=== PATIENT | female | born 1940 | race Caucasian/White ===

== ENCOUNTER → 2023-06-15 10:59 | Outpatient (REF) | payer MEDICARE, OTHER, SELFPAY | LOC: HWRAD 10:59 | PROVIDERS: ATTENDING PHYSICIAN Nurse Practitioner Adult Health; FAMILY PHYSICIAN Family Medicine | DX: M51.34 Other intervertebral disc degeneration, thoracic region (principal); M54.14 Radiculopathy, thoracic region | CPT/HCPCS: 72072 ==

== ENCOUNTER → 2023-07-13 17:04 | Outpatient (REF) | payer MEDICARE, OTHER, SELFPAY | LOC: RAD 17:04 | PROVIDERS: ATTENDING PHYSICIAN Specialist; FAMILY PHYSICIAN Family Medicine | DX: I82.492 Acute embolism and thrombosis of other specified deep vein of left lower extremity (principal) | CPT/HCPCS: 93970 ==

== ENCOUNTER 2023-07-21 14:48 | Emergency (ER) | payer MEDICARE, OTHER, SELFPAY ==
[2023-07-21 14:53] VITALS: BP 162/96
[2023-07-21 15:22] LABS: % Basophils 0.6 % (0-2); % Eosinophils 1.1 % (0-6); % Immature Granulocytes 1.1 % (0-0.5); % Lymphocytes 9.4 % (20.5-51.1); % Monocytes 7.4 % (1.7-9.3); % Neutrophils 80.4 % (42.2-75.2); Absolute Basophils 0.1 10^3/uL (0-0.2); Absolute Eosinophils 0.1 10^3/uL (0-0.7); Absolute Immature Granulocytes 0.1 10^3/uL (0-0.05); Absolute Lymphocytes 1.2 10^3/uL (1.2-3.4); Absolute Monocytes 0.9 10^3/uL (0.1-0.6); Absolute Neutrophils 9.8 10^3/uL (1.4-6.5); Hematocrit 39.3 % (37.0-47.0); Hemoglobin 13.4 g/dL (12.0-16.0); Mean Corp Hgb Conc. 34.1 g/dL (33.0-37.0); Mean Corpuscular Hgb 31.8 pg (27.0-31.0); Mean Corpuscular Volume 93.1 fL (81.0-99.0); Mean Platelet Volume 9.6 fL (7.4-10.4); Nucleated Red Blood Cells % 0 %; Platelet Count 257 10^3/uL (130-400); Red Blood Cell Count 4.22 10^6/uL (4.20-5.40); Red Cell Dist. Width 13.6 % (11.5-14.5); White Blood Cell Count 12.2 10^3/uL (4.8-10.8)
[2023-07-21 15:32] LABS: ALT (SGPT) 18 U/L (0-35); AST (SGOT) 21 U/L (14-36); Albumin 4.4 g/dl (3.5-5.0); Alkaline Phosphatase 76 U/L (38-126); Blood Urea Nitrogen 15 mg/dl (7-17); Calcium 10.3 mg/dl (8.4-10.2); Carbon Dioxide 19 mmol/L (22-30); Chloride 108 mmol/L (98-107); Glucose 198 mg/dl (70-99); Lipase 398 U/L (23-300); Potassium 3.7 mmol/L (3.5-5.1); Sodium 136 mmol/L (135-145); Total Bilirubin 0.5 mg/dl (0.2-1.3); Total Protein 6.9 g/dl (6.3-8.2); eGFR > 60.00
--- NOTE | 2023-07-21 16:27 | ED.GENMED ---
History of Present Illness
General
Chief Complaint: Abdominal Symptoms
Source: patient and spouse
Exam Limitations: none
Time Seen by Provider: 07/21/23 16:15
Travel History
Have you had any contact with someone who has COVID-19?: No
Do you have any symptoms of coronavirus? Fever > 100 degrees, chills, cough, shortness of breath, sore throat, loss of taste or smell, muscle aches, or headache?: No
History of Present Illness
History of Present Illness:
82-year-old female multiple episodes of diarrhea yesterday. Very watery. Also developed some vague abdominal discomfort more left-sided but generally vague. No vomiting. No recent antibiotics or travel history. No one else is ill at home. She
also developed a cough and congestion the last few days. Called her primary physician who recommended ER evaluation
Past History
Past History
ED Past Medical History: CAD, GERD, Hypercholesterolemia, NIDDM, Other (Fibermyalgia, Sjogren's syndrome), Other (IBS, PE, DVT) and Other (Urinary retention, giant cell arteritis)
ED Past Surgical History: Cardiac (Coronary Stents), and Other (Thyroidectomy, Spinal fusion.)
Social History
Tobacco: Non-smoker
Alcohol: None
Drug: None
Personal:
Living: with family
Employment: Retired
Family History
Family History: Other (Noncontributory)
Review of Systems
Review of Systems
All Other Systems: Not applicable
Constitutional: Reports fatigue; Denies fever
Respiratory: Reports cough
Cardiac: Reports no symptoms
: Reports other (Feels like she is in mild retention or not able to urinate)
Phy Exam
Physical Exam
Physical Exam:
GENERAL: Alert and oriented in no apparent distress
EYE: Orbits normal.
NECK: Supple
CARDIAC: Regular rate and rhythm without any obvious murmurs.
LUNGS: Clear breath sounds,normal
ABDOMEN: Soft, but mildly distended. Bowel sounds present. Mild left upper quadrant tenderness. No rebound or guarding no mass or hernia
NEUROLOGICAL: Alert and oriented , grossly non-focal
SKIN: Warm and dry, no rash or lesion, no discoloration, skin intact.
MUSCULOSKELETAL: No edema,no deformity.Good color
PSYCH: Normal and appropriate interaction.
Course
Orders/Labs/Results
Orders:
Orders
07/21/23 14:50
EKG [Electrocardiogram (*1)] Urgent
Reason for Study: Shortness of Breath
07/21/23 14:51
EKG- Treatment ONCE
07/21/23 15:03
Complete Blood Count/With Diff Urgent
Comprehensive Metabolic Panel Urgent
Lipase Urgent
07/21/23 16:24
CXR2 [CR Chest - 2 Views ] Urgent
Comment:
Reason For Exam: Cough
07/21/23 16:26
0.9% Sodium Chloride 500 ml [Nss] 500 ml IV BOLUS
07/21/23 16:30
COVID-19 Antigen Urgent
Source: Nasal Swab
Influenza A+B Rapid Molecular Urgent
[facility] Source: Nasal Swab
Specimen Description:
07/21/23 16:49
CT Abd/pel (oral only)-[facility] Only Urgent
Comment:
Reason For Exam: General abdominal pain
Iohexol [Omnipaque] See Protocol PO NOW STA
07/21/23 16:53
Urinalysis Reflex To Culture Urgent
Date Specimen was Collected: 07/21/23
Time Specimen was Collected: 14:50
Urine Microscopic Reflex Cult Urgent
Urine Culture Urgent
[facility] Source: U
Specimen Description:
Date Specimen was Collected: 07/21/23
Time Specimen was Collected: 14:50
07/21/23 17:30
Gabapentin [Neurontin] 300 mg PO NOW STA
Oxycodone [Roxicodone] 10 mg PO NOW STA
Abnormal Lab Results
07/21/23 07/21/23
15:03 16:53
WBC 12.2 H 10^3/uL
(4.8-10.8)
MCH 31.8 H pg
(27.0-31.0)
Abs Immat Gran (auto) 0.1 H 10^3/uL
(0-0.05)
Absolute Neuts (auto) 9.8 H 10^3/uL
(1.4-6.5)
Absolute Monos (auto) 0.9 H 10^3/uL
(0.1-0.6)
Immature Gran % 1.1 H %
(0-0.5)
Neutrophils % 80.4 H %
(42.2-75.2)
Lymphocytes % 9.4 L %
(20.5-51.1)
Chloride 108 H mmol/L
(98-107)
Carbon Dioxide 19 L mmol/L
(22-30)
Glucose 198 H mg/dl
(70-99)
Calcium 10.3 H mg/dl
(8.4-10.2)
Lipase 398 H U/L
(23-300)
Urine Ketones Trace A
(Negative)
Leukocyte Esterase Rfl 1+ A
(Negative)
Urine Bacteria (Reflex) Few A
(Negative)
07/21/23 15:03
07/21/23 15:03
Vital Signs
Initial and Last Documented VS:
Initial Vital Signs
Temp Pulse Resp BP Pulse Ox
98.2 F 110 17 162/96 97
07/21/23 14:53 07/21/23 14:53 07/21/23 14:53 07/21/23 14:53 07/21/23 14:53
Last Documented Vital Signs
Temp Pulse Resp BP Pulse Ox
98.2 F 95 22 142/83 95
07/21/23 14:53 07/21/23 20:56 07/21/23 20:56 07/21/23 20:56 07/21/23 20:56
MDM/Problems Addressed
Differential Diagnosis Includes:
Large differential including colitis/gastroenteritis/viral syndrome/COVID/influenza. Workup in progress
*Radiology
Radiology exam reviewed: radiology read reviewed (No acute findings on CT or chest x-ray)
*Pulse Oximetry
Patient hypoxic: no
*EKG
Interpreted by ED Provider?: Yes
Interpretation: abnormal
Comparison EKG: changes noted
Heart Rate: 106
Rate: tachycardiac
Rhythm: sinus
[place]: left axis deviation
Interval: normal interval
QRS Pattern: right bundle branch block
Ischemia: non-specific ST changes
*Critical Care Note
Total Time (30-74mins, 75-104mins- exclusive of procedures): Not Applicable
Data Reviewed
Review of Other/Old Records Reveals: Labs, Records and Testing
Update Note
Update Note:
Patient anxious to go home and is feeling better. No serious etiology found. Minimal increase in neutrophils. Minimal white count. No bacterial etiology found. Stable for discharge to follow-up
ED Attending Note
-
Portions of this chart may have been created with voice recognition software.� Occasional wrong word or��sound alike� substitutions may have occurred due to the inherent limitations of voice recognition software.
Discharge Plan
Departure
Patient Disposition: Home (Routine Discharge)
Date of Disposition: 07/21/23
Time of Disposition: 20:57
Patient with high blood pressure during this ER visit?: Yes
Discharge Problem:
Abdominal pain/diarrhea, URI
Instructions: Diarrhea in adolescents and adults, Viral Upper Respiratory Infection, Adult (DC), Abdominal Pain, BLOOD PRESSURE
Prescriptions:
No Action
cevimeline [Evoxac] 30 MG capsule
30 mg PO DAILY@0700
gabapentin 300 MG capsule
300 mg PO HS
cyclosporine [Restasis] 10 DROPS dropperette
1 drp BOTH EYES BID
atorvastatin 20 MG tablet
40 mg PO HS
apixaban [Eliquis] 5 MG tablet
5 mg PO BID Qty: 60 0RF
metoprolol succinate 25 MG tablet extended release 24 hr
25 mg PO HS
cholecalciferol (vitamin D3) 2,000 UNITS tablet
2,000 units PO QPM
levothyroxine [Synthroid] 137 MCG tablet
137 mcg PO DAILY@0700
glipizide 5 MG tablet
5 mg PO BID
potassium chloride 10 MEQ capsule, extended release
10 meq PO TID
allopurinol 100 MG tablet
100 mg PO DAILY
esomeprazole magnesium [Nexium] 40 MG capsule,delayed release(DR/EC)
40 mg PO DAILY@0700
Domperidone
10 mg PO TID
isosorbide mononitrate 30 MG tablet extended release 24 hr
15 mg PO DAILY@0700
Patient Comments:
pt not sure of dosage
acetaminophen [Tylenol Ex Str Arthritis Pain] 500 MG tablet
1,000 mg PO Q6
L.acidoph, paracasei,B. lactis 1 EACH capsule
1 cap PO DAILY
ezetimibe [Zetia] 10 MG tablet
10 mg PO HS
opyhzonxnynq-gmg-curz-FA-vit K [Adults Multivitamin] 1 EACH tablet
1 ea PO DAILY
docusate sodium 100 MG capsule
100 mg PO BID 0RF
zolpidem [Ambien CR] 6.25 MG tablet,ext release multiphase
6.25 mg PO HS Qty: 3 0RF
hydrocodone-acetaminophen 1 EACH tablet
1 tab PO Q6 Qty: 14 0RF
hydromorphone [Dilaudid] 2 MG tablet
2 mg PO Q6H PRN (Reason: sev pain) Qty: 14 0RF
Referrals:
Jacob Rivas, [Family Provider] - Follow up in 2-3 days
Activity Restrictions/Additional Instructions:
Light diet for the next 2 to 3 days
Return sooner with increased pain fever vomiting or any other concerning symptoms
Also get rechecked if not resolved in 1 to 2 days
Interventions
Interventions:
*Risk Screen - Suicide Last Done: 07/21/23 14:53
*General Assessment Last Done: 07/21/23 17:37
*Neglect/Abuse Screening Last Done: 07/21/23 14:53
*ED COVID-19 Vaccine History Last Done: 07/21/23 14:53
*Nursing Disposition Last Done: 07/21/23 21:07
WU-Azwfnl-Ytucvqowpy Assessment Last Done: 07/21/23 17:36
Discharge Date and Time
Discharge Date/Time: 07/21/23 21:09
[2023-07-21 17:04] LABS: COVID-19 Antigen Negative (Negative)
[2023-07-21] MEDS: OMNIPAQUE 50 ML PO (17:05)
[2023-07-21 17:09] VITALS: BP 160/97
[2023-07-21 17:10] LABS: Urine Albumin Trace (Neg - Trace); Urine Bilirubin Negative (Negative); Urine Character Clear (Clear); Urine Color Yellow; Urine Glucose Negative (Negative); Urine Ketone Trace (Negative); Urine Leukocyte 1+ (Negative); Urine Nitrite Negative (Negative); Urine Occult Blood Negative (Negative); Urine Specific Gravity 1.025 (<1.030); Urine Urobilinogen Negative (Neg - 1+)
[2023-07-21 17:22] LABS: Urine Calcium Oxalate Crystals Present; Urine Mucus Few; Urine Red Blood Cell 0-2 /HPF (0-2); Urine Squamous Cell 0-2 /LPF (Few)
[2023-07-21 17:24] LABS: Urine Bacteria Few (Negative)
[2023-07-21] MEDS: NEURONTIN 300 MG PO (17:41)
[2023-07-21] MEDS: ROXICODONE 10 MG PO (17:41)
[2023-07-21 18:39] VITALS: BP 170/82
[2023-07-21 20:35] VITALS: BP 142/83
[2023-07-21 20:56] VITALS: BP 142/83
== END 2023-07-21 21:09 | disposition home or self-care (01) ==
LOC: EMR 14:48
PROVIDERS: Emergency Medicine; EMERGENCY PHYSICIAN Emergency Medicine; FAMILY PHYSICIAN Family Medicine
DX: J06.9 Acute upper respiratory infection, unspecified (principal); R19.7 Diarrhea, unspecified; R10.9 Unspecified abdominal pain; R03.0 Elevated blood-pressure reading, without diagnosis of hypertension; Z11.52 Encounter for screening for COVID-19
CPT/HCPCS: 99285; 71046; 74176; 80053; 81003; 81015; 83690; 85025; 87086; 87502; 87811; 93005

== ENCOUNTER 2023-07-26 13:57 | Observation (INO) | payer MEDICARE, OTHER, SELFPAY ==
[2023-07-26] VITALS (11 sets, daily range): BP systolic 114–167; BP diastolic 59–93; BMI 26.3; BMI 26.5
--- NOTE | 2023-07-26 10:30 | EDRN ---
the pt had c/o SOB and Sp02 was 94%, this RN spoke with provider Mino ROONEY and the pt was placed on 2L NC, the pt states that she feels more comfortable and that, 'It is easier to breathe now thank you, i feel much better with the oxygen',
Sp02 is now 98%, will continue to monitor the pt closely
--- NOTE | 2023-07-26 10:35 | ED.GENMED ---
History of Present Illness
General
Chief Complaint: Weakness
Source: patient
Time Seen by Provider: 07/26/23 10:25
History of Present Illness
History of Present Illness:
82-year-old female seen in this emergency department 5 days ago for profuse diarrhea and mild URI-like symptoms, had largely unremarkable workup outside of a mild leukocytosis, stating diarrhea has resolved but woke up this morning feeling generally
weak and unable to get up out of her bed, continued and worsening cough although notes diarrhea is fully resolved. Patient was unaware of a fever but was found to have a 101 fever here. Has not taken any medications prior to arrival. She states
she has not been taking anything at home for her symptoms and has not been on any antibiotics recently. Last night had significant rhinorrhea. at home is asymptomatic. Patient still endorses some abdominal discomfort although no further
GI symptoms.
Past History
Past History
ED Past Medical History: CAD, GERD, Hypercholesterolemia, NIDDM, Other (Fibermyalgia, Sjogren's syndrome), Other (IBS, PE, DVT) and Other (Urinary retention, giant cell arteritis)
ED Past Surgical History: Cardiac (Coronary Stents), and Other (Thyroidectomy, Spinal fusion.)
Social History
Tobacco: Non-smoker
Alcohol: None
Drug: None
Personal:
Living: with family
Employment: Retired
Family History
Family History: Other (Noncontributory)
Review of Systems
Review of Systems
All Other Systems: ROS reviewed and negative except as documented in HPI and ROS
Phy Exam
Physical Exam
Physical Exam:
GENERAL: Alert , in no apparent distress But does need assistance sitting up in bed
EYE: clear conjunctiva b/l
HEAD: NCAT
ENT: o/p clr, mmm.
CARDIAC: Borderline tachycardic rate and rhythm
LUNGS: Clear breath sounds bilaterally, no acute respiratory distress, no wheezes/rales/rhonchi, coughing throughout exam
ABDOMEN: Soft, without focal tenderness, no r/g, no cvat, negative Duval sign, no tenderness at McBurney's point
NEUROLOGICAL: Alert and oriented
SKIN: Warm and dry, skin intact.
MUSCULOSKELETAL: No edema, well perfused.
PSYCH: Normal and appropriate interaction.
Scores
Heart Failure Risk
Heart Failure Risk Score: Not Applicable
Heart Score for Chest Pain Patients
STEMI patient?: Not applicable
Withdrawal Assessment of Alcohol
Withdrawal Assessment Completed?: Not applicable
Course
Orders/Labs/Results
Orders:
Orders
07/26/23 10:23
Electrocardiogram (*1) Urgent
Reason for Study: Vertigo / Dizzy
CR Chest - 2 Views Urgent
Comment:
Reason For Exam: cough/ shortness of breath
07/26/23 10:24
EKG- Treatment ONCE
07/26/23 10:26
Basic Metabolic Panel Urgent
COVID-19 Antigen Urgent
Source: Nasal Swab
Complete Blood Count/With Diff Urgent
Lactic Acid Urgent
Lipase Urgent
Comment: ADD ON
Urinalysis Reflex To Culture Urgent
Date Specimen was Collected: 07/26/23
Time Specimen was Collected: 10:24
Urine Microscopic Reflex Cult Urgent
Blood Culture Urgent
[facility] Source: Blood/Venous
Specimen Description:
Date Specimen was Collected: 07/26/23
Time Specimen was Collected: 10:24
Influenza A+B Rapid Molecular Urgent
[facility] Source: Nasal Swab
Specimen Description:
Date Specimen was Collected: 07/26/23
Time Specimen was Collected: 10:24
07/26/23 10:35
0.9% Sodium Chloride 500 ml [Nss] 500 ml IV BOLUS
Acetaminophen [Tylenol] 650 mg PO NOW STA
07/26/23 13:00
Add On- LAB Urgent
Tests Added?: troponin
07/26/23 13:01
Add On- LAB Urgent
Tests Added?: magnesium
Basic Metabolic Panel Urgent
07/26/23 13:02
Add On- LAB Urgent
Tests Added?: lipase
Abnormal Lab Results
07/26/23
10:26
RBC 4.07 L 10^6/uL
(4.20-5.40)
Hct 36.9 L %
(37.0-47.0)
MCH 31.7 H pg
(27.0-31.0)
Abs Immat Gran (auto) 0.1 H 10^3/uL
(0-0.05)
Absolute Neuts (auto) 8.4 H 10^3/uL
(1.4-6.5)
Absolute Lymphs (auto) 0.6 L 10^3/uL
(1.2-3.4)
Absolute Monos (auto) 1.0 H 10^3/uL
(0.1-0.6)
Immature Gran % 0.8 H %
(0-0.5)
Neutrophils % 82.3 H %
(42.2-75.2)
Lymphocytes % 6.2 L %
(20.5-51.1)
Monocytes % 10.1 H %
(1.7-9.3)
Sodium 133 L mmol/L
(135-145)
Carbon Dioxide 20 L mmol/L
(22-30)
Creatinine 0.5 L mg/dL
(0.6-1.0)
Glucose 143 H mg/dl
(70-99)
Leukocyte Esterase Rfl Trace A
(Negative)
Urine Bacteria (Reflex) Few A
(Negative)
07/26/23 10:26
Vital Signs
Initial and Last Documented VS:
Initial Vital Signs
Temp Pulse Resp BP Pulse Ox
101.5 F H 95 25 167/86 96
07/26/23 10:25 07/26/23 10:25 07/26/23 10:25 07/26/23 10:25 07/26/23 10:25
Last Documented Vital Signs
Temp Pulse Resp BP Pulse Ox
101.5 F H 88 16 158/69 96
07/26/23 10:25 07/26/23 11:15 07/26/23 11:15 07/26/23 11:00 07/26/23 11:15
MDM/Problems Addressed
Differential Diagnosis Includes:
Progressed intra-abdominal pathology not seen on previous CT scan, COVID, flu, pneumonia
MDM/Problems Addressed:
82-year-old female presenting back to the emergency department after being seen 5 days ago, at that time was seen for profuse diarrhea but those symptoms have fully resolved. Patient did have a leukocytosis then however no clear etiology for this
as she had a otherwise unremarkable workup. Today's symptoms are mostly pronounced weakness and inability to get out of bed. Found to have a 101.5 fever here. Will check labs, cultures, lactic acid, urine, chest x-ray. Patient still noting some
abdominal discomfort but will hold off on CT imaging given unremarkable CT 5 days ago. Anticipate admission. Tylenol ordered for fever as well as fluids for weakness.
*Radiology
Radiology exam reviewed: preliminary read by ED provider ( unremarkable chest x-ray)
*Pulse Oximetry
Patient hypoxic: no
*EKG
Interpreted by ED Provider?: Yes
Comparison EKG: no changes
Heart Rate: 93
Rate: normal
Rhythm: sinus
QRS Pattern: left bundle branch block and right bundle branch block
*Physician General Internal Medicine Interpretation
Rate: normal
Rhythm: sinus
*Critical Care Note
Total Time (30-74mins, 75-104mins- exclusive of procedures): Not Applicable
Patient Management
Discussion with other providers: Hospitalist
Escalation/DeEscalation of care consider admission/obs:
Patient's lab findings are largely unremarkable. Her leukocytosis has resolved however she still has increased neutrophils. Urine and chest x-ray are negative for any acute findings. COVID and flu testing was negative. Certainly considering
viral etiology to be cause. Given patient's cough PE was also given her history of this however she is properly anticoagulated on Eliquis and takes this regularly. Plan will be to admit as well as service for continued evaluation and treatment as
patient is too weak to get up and ambulate on her own. Hospitalist accepts for continued evaluation and treatment.
ED Attending Note
-
Portions of this chart may have been created with voice recognition software.� Occasional wrong word or��sound alike� substitutions may have occurred due to the inherent limitations of voice recognition software.
Discharge Plan
Departure
Patient Disposition: Admit
Date of Disposition: 07/26/23
Time of Disposition: 12:27
Presentation/result/management discussed w/ accepting MD/DO: Hospitalist
Discharge Problem:
Fever, Generalized weakness, Ambulatory dysfunction
Prescriptions:
No Action
cevimeline [Evoxac] 30 MG capsule
30 mg PO DAILY@0700
gabapentin 300 MG capsule
300 mg PO HS
cyclosporine [Restasis] 10 DROPS dropperette
1 drp BOTH EYES BID
atorvastatin 20 MG tablet
40 mg PO HS
apixaban [Eliquis] 5 MG tablet
5 mg PO BID Qty: 60 0RF
metoprolol succinate 25 MG tablet extended release 24 hr
25 mg PO HS
cholecalciferol (vitamin D3) 2,000 UNITS tablet
2,000 units PO QPM
levothyroxine [Synthroid] 137 MCG tablet
137 mcg PO DAILY@0700
glipizide 5 MG tablet
5 mg PO BID
potassium chloride 10 MEQ capsule, extended release
10 meq PO TID
allopurinol 100 MG tablet
100 mg PO DAILY
esomeprazole magnesium [Nexium] 40 MG capsule,delayed release(DR/EC)
40 mg PO DAILY@0700
Domperidone
10 mg PO TID
isosorbide mononitrate 30 MG tablet extended release 24 hr
15 mg PO DAILY@0700
Patient Comments:
pt not sure of dosage
acetaminophen [Tylenol Ex Str Arthritis Pain] 500 MG tablet
1,000 mg PO Q6
L.acidoph, paracasei,B. lactis 1 EACH capsule
1 cap PO DAILY
ezetimibe [Zetia] 10 MG tablet
10 mg PO HS
dosqzupzfmiy-zor-rbji-FA-vit K [Adults Multivitamin] 1 EACH tablet
1 ea PO DAILY
docusate sodium 100 MG capsule
100 mg PO BID 0RF
zolpidem [Ambien CR] 6.25 MG tablet,ext release multiphase
6.25 mg PO HS Qty: 3 0RF
hydrocodone-acetaminophen 1 EACH tablet
1 tab PO Q6 Qty: 14 0RF
hydromorphone [Dilaudid] 2 MG tablet
2 mg PO Q6H PRN (Reason: sev pain) Qty: 14 0RF
Referrals:
Jacob Rivas DO [Family Provider] -
Interventions
Interventions:
*Risk Screen - Suicide Last Done: 07/26/23 10:25
*General Assessment Last Done: 07/26/23 10:25
*Neglect/Abuse Screening Last Done: 07/26/23 10:25
ED- Fall Risk Assessment Last Done: 07/26/23 10:25
*ED COVID-19 Vaccine History Last Done: 07/26/23 10:25
ED- Cardiac Assessment Last Done: 07/26/23 10:25
ED- Neurological Assessment Last Done: 07/26/23 10:25
ED- Pulmonary Assessment Last Done: 07/26/23 10:25
Discharge Date and Time
Print Language: ARABIC
[2023-07-26] MEDS: NSS 500 IV (10:38)
[2023-07-26] MEDS: TYLENOL 650 MG PO (10:40)
[2023-07-26 10:50] LABS: % Basophils 0.4 % (0-2); % Eosinophils 0.2 % (0-6); % Immature Granulocytes 0.8 % (0-0.5); % Lymphocytes 6.2 % (20.5-51.1); % Monocytes 10.1 % (1.7-9.3); % Neutrophils 82.3 % (42.2-75.2); Absolute Immature Granulocytes 0.1 10^3/uL (0-0.05); Absolute Lymphocytes 0.6 10^3/uL (1.2-3.4); Absolute Neutrophils 8.4 10^3/uL (1.4-6.5); Hematocrit 36.9 % (37.0-47.0); Hemoglobin 12.9 g/dL (12.0-16.0); Mean Corpuscular Hgb 31.7 pg (27.0-31.0); Mean Corpuscular Volume 90.7 fL (81.0-99.0); Nucleated Red Blood Cells % 0 %; Red Blood Cell Count 4.07 10^6/uL (4.20-5.40); Red Cell Dist. Width 13.8 % (11.5-14.5); White Blood Cell Count 10.2 10^3/uL (4.8-10.8)
[2023-07-26 11:09] LABS: Lactic Acid 1.4 mmol/L (0.7-2.0)
[2023-07-26 11:10] LABS: COVID-19 Antigen Negative (Negative)
[2023-07-26 11:12] LABS: Glucose 143 mg/dl (70-99)
[2023-07-26 11:13] LABS: Blood Urea Nitrogen 11 mg/dl (7-17); Calcium 9.3 mg/dl (8.4-10.2); Carbon Dioxide 20 mmol/L (22-30); Chloride 105 mmol/L (98-107); Estimated Creatinine Clearance 56 ml/min; Sodium 133 mmol/L (135-145); eGFR > 60.00
[2023-07-26 11:19] LABS: Urine Albumin Trace (Neg - Trace); Urine Bilirubin Negative (Negative); Urine Character Clear (Clear); Urine Color Yellow; Urine Glucose Negative (Negative); Urine Ketone Negative (Negative); Urine Leukocyte Trace (Negative); Urine Nitrite Negative (Negative); Urine Occult Blood Negative (Negative); Urine Urobilinogen Negative (Neg - 1+)
[2023-07-26 11:42] LABS: Urine Red Blood Cell None Seen /HPF (0-2)
[2023-07-26 11:43] LABS: Urine Bacteria Few (Negative)
[2023-07-26 11:49] LABS: Mean Platelet Volume 9.8 fL (7.4-10.4); Platelet Count 166 10^3/uL (130-400)
--- NOTE | 2023-07-26 13:28 | HPS.HSE ---
Family Physician
-
Family Physician: Jacob Rivas
Chief Complaint
-
Weakness
History of Present Illness
82-year-old woman who 5 days ago had profuse diarrhea and mild URI-like symptoms. She came in for eval and had largely unremarkable workup outside of a mild leukocytosis. Then the diarrhea resolved and she went home. Today she woke up feeling
generally weak and unable to get up out of her bed/ She has a worsening cough, and the diarrhea is fully resolved. Patient was unaware of a fever but was found to have a 101.5 fever in the ED. She states she has not been taking anything at home
for her symptoms and has not been on any antibiotics recently. Last night she had significant rhinorrhea. Her at home is asymptomatic. Patient still has some generalized non-focal abdominal discomfort although no further GI symptoms. At
the time of my interview she was awake and alert, answering all questions appropriately. She was comfortable.
Medical History
Past Medical History
Past Medical History: Reports Other
Additional Past Medical History:
CAD,
GERD,
Hypercholesterolemia,
NIDDM,
Fibromyalgia,
Sjogren's syndrome
IBS,
PE,
DVT
Urinary retention,
giant cell arteritis
Cardiac (Coronary Stents),
Thyroidectomy,
Spinal fusion
Past Surgical History: Reports Other
Additional Past Surgical History:
See above
Social History
Tobacco: Non-smoker
Alcohol: None
Drug: None
Personal:
Living: With Family
Employment: Retired
Family History
Family History: Not pertinent
Allergies / Home Medications
Allergies reflects when Allergies were last updated in [employer].
Home Medications with original date entered in [facility]
Allergy/Medication List:
Allergies
Allergy/AdvReac Type Severity Reaction Status Date / Time
Iodinated Contrast Media Allergy Shortness Verified 11/17/22 10:04
[Iodinated Contrast Media - of Breath,
Oral and] rash
levofloxacin [From Levaquin] Allergy Shortness Verified 11/17/22 10:04
of Breath,
Rash
nabumetone [From Relafen] Allergy STOMACH Verified 11/17/22 10:04
PROBLEMS,
SOB
naproxen [Naproxen] Allergy STOMACH Verified 11/17/22 10:04
PROBLEMS,
SOB
nifedipine [From Procardia] Allergy VOMITED X Verified 11/17/22 10:04
24 HRS, SOB
Penicillins Allergy Rash/COULD Verified 11/17/22 10:04
NOT BREATHE
sulfamethoxazole Allergy STOMACH Verified 11/17/22 10:04
[Sulfamethoxazole] PROBLEMS,
SOB
vancomycin [Vancomycin] Allergy TROUBLE Verified 11/17/22 10:04
BREATHING
Home Medications
cevimeline 30 mg capsule (Evoxac) 30 mg PO DAILY@0700 dry mouth 08/10/12
cyclosporine 0.05 % eye drops in a dropperette (Restasis) 1 drp BOTH EYES BID Eye condition 08/10/12
gabapentin 300 mg capsule 300 mg PO HS Neurological Condition 08/10/12
apixaban 5 mg tablet (Eliquis) 5 mg PO BID #60 tabs 06/27/16
atorvastatin 20 mg tablet 40 mg PO HS High cholesterol 06/27/16
cholecalciferol (vitamin D3) 50 mcg (2,000 unit) tablet 2,000 units PO QPM Supplement 01/15/17
metoprolol succinate 25 mg tablet,extended release 24 hr 25 mg PO HS Heart disease/condition 01/15/17
glipizide 5 mg tablet 5 mg PO BID Diabetes 02/02/17
levothyroxine 137 mcg tablet (Synthroid) 137 mcg PO DAILY@0700 Thyroid 02/02/17
Domperidone 10 mg PO TID Gastrointestinal issue 11/20/18
allopurinol 100 mg tablet 100 mg PO DAILY Gout 11/20/18
esomeprazole magnesium 40 mg capsule,delayed release (Nexium) 40 mg PO DAILY@0700 Gastrointestinal issue 11/20/18
potassium chloride 10 mEq capsule,extended release 10 meq PO TID Electrolyte Repletion 11/20/18
L.acidoph, paracasei,B. lactis 10 billion cell capsule 1 cap PO DAILY Supplement 06/29/20
acetaminophen 500 mg tablet (Tylenol Ex Str Arthritis Pain) 1,000 mg PO Q6 Pain 06/29/20
isosorbide mononitrate 30 mg tablet,extended release 24 hr 15 mg PO DAILY@0700 Heart disease/condition 06/29/20
ezetimibe 10 mg tablet (Zetia) 10 mg PO HS High cholesterol 07/01/20
multivit with minerals-iron 18 mg-folic ac 400 mcg-vit K 25 mcg tablet (Adults Multivitamin) 1 ea PO DAILY Supplement 07/01/20
docusate sodium 100 mg capsule 100 mg PO BID 07/02/20
hydrocodone 7.5 mg-acetaminophen 300 mg tablet 1 tab PO Q6 #14 tabs 07/02/20
hydromorphone 2 mg tablet (Dilaudid) 2 mg PO Q6H PRN sev pain #14 tabs 07/02/20
zolpidem 6.25 mg tablet,extended release,multiphase (Ambien CR) 6.25 mg PO HS Sleep #3 tabs 07/02/20
Review of Systems
-
History Source: Patient
A 12 point ROS was completed and negative except as noted: Yes
Physical Exam
Vital Signs
Vital Signs
Temp Pulse Resp BP Pulse Ox
101.5 F H 88 16 158/69 96
07/26/23 10:25 07/26/23 11:15 07/26/23 11:15 07/26/23 11:00 07/26/23 11:15
Physical Exam
General: Well Developed, Well Nourished, No Apparent Distress, Comfortable and Conversant
HEENT: NormoCephalic, Atraumatic, No Ptosis, Nose Appears Normal and Ears Appear Normal
Respiratory: Clear
Cardiac: S1/S2 and Regular Rhythm
GI: Soft, Non Distended and Tender
Musculoskeletal: No Clubbing, No Cyanosis and No Edema
Skin: Warm and Dry; No Rash or Jaundice
Neuro: Awake, Alert, Oriented and AO x 3
Psych: Calm
Laboratory Results
-
07/26/23 10:26
Laboratory Results
Lactic Acid 1.4 mmol/L (0.7-2.0) 07/26/23 10:26
Total Bilirubin Cancelled 07/26/23 10:26
AST Cancelled 07/26/23 10:26
ALT Cancelled 07/26/23 10:26
Alkaline Phosphatase Cancelled 07/26/23 10:26
Data Reviewed
-
Lab Data: Labs Reviewed by me
Impression/Plan
-
IMPRESSION:
82 woman with fever of unknown origin. Recent viral syndrome. CXR wnl. UA does not look infected.
PLAN:
1. FUO with weakness. Nothing obvious on labs or imaging at this time.
Check all electrolytes again
Check troponin
Check lipase
Otherwise provide supportive care and PT consult.
Code: DNR/DNI
VCD for DVTp
[2023-07-26 13:41] LABS: Lipase 85 U/L (23-300)
[2023-07-26 14:11] LABS: Blood Urea Nitrogen 9 mg/dl (7-17); Calcium 8.3 mg/dl (8.4-10.2); Carbon Dioxide 22 mmol/L (22-30); Chloride 106 mmol/L (98-107); Estimated Creatinine Clearance 56 ml/min; Glucose 133 mg/dl (70-99); Potassium 3.1 mmol/L (3.5-5.1); Sodium 135 mmol/L (135-145); eGFR > 60.00
[2023-07-26 14:20] LABS: Troponin I < 0.012 ng/ml
--- NOTE | 2023-07-26 15:00 | EDRN ---
the pt pressed the call walker and stated that she needed to use the bathroom, the pt was unhooked from the monitor and ambulated x1 assist to the bathroom and back to the stretcher with on issues, no c/o chest pain, no c/o SOB, pt placed back on
monitor, VS WNL, the pt is currently still on 2L NC Sp02 98%, the pt is resting in stretcher in the lowest position, side rails up x2, call walker within reach, HOB elevated, the pts and daughter are currently at the pts bedside, will continue
to monitor the pt closely
[2023-07-26] MEDS: NEURONTIN 300 MG PO ×2 (15:55→21:48)
[2023-07-26] MEDS: ROXICODONE 10 MG PO ×2 (15:56→21:45)
--- NOTE | 2023-07-26 17:12 | EDRN ---
this RN called the receiving unit and notified them that paper report was going to be tubed up
--- NOTE | 2023-07-26 17:14 | EDRN ---
the pt and the pts and daughter were notified that there is a room available for the pt, VS WNL, no s/s of distress, the pt is currently still on 2L NC Sp02 97%, no c/o chest pain, no c/o SOB, VS WNL, will continue to monitor the pt closely
--- NOTE | 2023-07-26 18:00 | PTCARENOTE ---
Pt arrived to 404-1 at this time, pt AAOX3, denying any SOB at this time, occasional cough, nonproductive, SPO2 99% on 2L of O2 via NC. No chest discomfort. SR on telemetry with BBB, HR 80s. See shift assessment for further detail. Oriented pt
and her family to , call walker, pressure ulcer prevention, plan of care, reporting concerns- verbalized understanding. Call walker within reach, will monitor.
[2023-07-26 19:41] LABS: Troponin I < 0.012 ng/ml
[2023-07-26] MEDS: PROTONIX 40 MG PO (21:46)
[2023-07-26] MEDS: VITAMIN D3 (cholecalciferol) 50 MCG PO (21:46)
[2023-07-26] MEDS: COLACE 100 MG PO (21:46)
[2023-07-26] MEDS: RESTASIS 0.05% OPHTHALMIC EMULSION 1 DROPS BOTH EYES (21:46)
[2023-07-26] MEDS: KCL 10 MEQ PO (21:46)
[2023-07-26] MEDS: LIPITOR 40 MG PO (21:48)
[2023-07-26] MEDS: ZETIA 10 MG PO (21:48)
[2023-07-26 21:49] LABS: Troponin I < 0.012 ng/ml
[2023-07-26] MEDS: TOPROL XL 25 MG PO (21:49)
[2023-07-26] MEDS: AMBIEN 5 MG PO (22:17)
[2023-07-27] MEDS: KCL 10 MEQ PO ×2 (01:29→08:01)
[2023-07-27] MEDS: ROXICODONE 10 MG PO ×3 (01:30→12:11)
[2023-07-27 03:50] VITALS: BP 133/66
[2023-07-27 06:00] VITALS: BMI 25.3
[2023-07-27] MEDS: IMDUR (EXTENDED RELEASE) 30 MG PO (06:24)
[2023-07-27] MEDS: SYNTHROID 125 MCG PO (06:24)
[2023-07-27 07:32] VITALS: BP 113/57
[2023-07-27 07:56] LABS: Hematocrit 33.2 % (37.0-47.0); Mean Corp Hgb Conc. 33.1 g/dL (33.0-37.0); Mean Corpuscular Hgb 31.4 pg (27.0-31.0); Mean Corpuscular Volume 94.9 fL (81.0-99.0); Mean Platelet Volume 10.7 fL (7.4-10.4); Platelet Count 121 10^3/uL (130-400); Red Cell Dist. Width 14.1 % (11.5-14.5); White Blood Cell Count 4.1 10^3/uL (4.8-10.8)
[2023-07-27] MEDS: ZYLOPRIM 100 MG PO (08:00)
[2023-07-27] MEDS: THERAGRAN 1 TABLET PO (08:01)
[2023-07-27] MEDS: GLUCOTROL 5 MG PO (08:01)
[2023-07-27] MEDS: RESTASIS 0.05% OPHTHALMIC EMULSION 1 DROPS BOTH EYES (08:01)
[2023-07-27] MEDS: NEURONTIN 300 MG PO (08:02)
[2023-07-27] MEDS: PROTONIX 40 MG PO (08:02)
[2023-07-27] MEDS: COLACE 100 MG PO (08:03)
[2023-07-27 08:46] LABS: Glycohemoglobin (HgbA1c) 7.1 % (4.0-5.6)
[2023-07-27 09:37] LABS: Blood Urea Nitrogen 7 mg/dl (7-17); Calcium 8.6 mg/dl (8.4-10.2); Carbon Dioxide 22 mmol/L (22-30); Chloride 110 mmol/L (98-107); Estimated Creatinine Clearance 55 ml/min; Glucose 140 mg/dl (70-99); Lipase 44 U/L (23-300); Potassium 3.9 mmol/L (3.5-5.1); Sodium 136 mmol/L (135-145); eGFR > 60.00
[2023-07-27] MEDS: TYLENOL 650 MG PO (11:29)
[2023-07-27 11:55] VITALS: BP 117/67
[2023-07-27 12:10] VITALS: BP 117/67; PULSE 86; O2SAT 93
--- NOTE | 2023-07-27 13:52 | W.DS.TRANS ---
DC Summary - [employer]
-
Discharge Instructions:
Discharge Diagnosis/Procedures fever
Diet Regular
Activity As tolerated
Instructions:
Stand-Alone Forms:
Changes to Home Medications: No
Discharge Medications:
DC Medications w/original date entered in Personally
cevimeline 30 mg capsule (Evoxac) 30 mg PO TID dry mouth 08/10/12
cyclosporine 0.05 % eye drops in a dropperette (Restasis) 1 drp BOTH EYES BID Eye condition 08/10/12
gabapentin 300 mg capsule 300 mg PO TID Neurological Condition 08/10/12
atorvastatin 20 mg tablet 40 mg PO HS High cholesterol 06/27/16
cholecalciferol (vitamin D3) 50 mcg (2,000 unit) tablet 2,000 units PO QPM Supplement 01/15/17
metoprolol succinate 25 mg tablet,extended release 24 hr 25 mg PO HS Heart disease/condition 01/15/17
glipizide 5 mg tablet 5 mg PO DAILY Diabetes 02/02/17
Domperidone 10 mg PO TID Gastrointestinal issue 11/20/18
allopurinol 100 mg tablet 100 mg PO DAILY Gout 11/20/18
potassium chloride 10 mEq capsule,extended release 10 meq PO TID Electrolyte Repletion 11/20/18
isosorbide mononitrate 30 mg tablet,extended release 24 hr 30 mg PO DAILY@0700 Heart disease/condition 06/29/20
ezetimibe 10 mg tablet (Zetia) 10 mg PO HS High cholesterol 07/01/20
multivit with minerals-iron 18 mg-folic ac 400 mcg-vit K 25 mcg tablet (Adults Multivitamin) 1 ea PO DAILY Supplement 07/01/20
lansoprazole 30 mg capsule,delayed release 30 mg PO BID 07/26/23
levothyroxine 125 mcg tablet (Synthroid) 125 mcg PO DAILY 07/26/23
mirabegron 50 mg tablet,extended release 24 hr (Myrbetriq) 50 mg PO DAILY 07/26/23
oxycodone 10 mg tablet 10 mg PO Q5H 07/26/23
polyethylene glycol 3350 17 gram oral powder packet (Miralax) 17 g PO DAILYPRN PRN constipation 07/26/23
therapeutic multivitamin 1 tab PO DAILY 07/26/23
zolpidem 6.25 mg tablet,extended release,multiphase (Ambien CR) 6.25 mg PO HSPRN PRN sleep 07/26/23
Home Medication Changes
Pending Results: No
Total time spent discharging patient (in min): 39 min dc time
--- NOTE | 2023-07-27 13:53 | W.DCSUMMARY ---
Discharge Summary
Discharge Data
Date of Admission: 07/26/23
Date of Discharge: 07/27/23
Total time spent discharging patient (in min): 39
-
Pending Results: No
Hospital Course
82 F admitted for isolated fever. Blood cultures neg x 24 hrs without recurrence. CXR and UA negative. Pt without further fever. Pt without complaints and will follow up with PCP. Suspected viral syndrome due to slight decrease in platelets and WBC
count.
gen: nad
heent: no jvd
lungs: cta b
abd: soft non tender
psych : calm
neuro: no focal deficits
extrem: no edema
skin: no rash
Discharge Plan
-
Patient Disposition: Home (Routine Discharge)
Discharge Diagnosis/Procedures: fever
Diet: Regular
Activity: As tolerated
Referrals:
Jacob Rivas DO [Family Provider] -
Prescriptions:
Continued
cevimeline [Evoxac] 30 MG capsule
30 mg PO TID
gabapentin 300 MG capsule
300 mg PO TID
cyclosporine [Restasis] 10 DROPS dropperette
1 drp BOTH EYES BID
atorvastatin 20 MG tablet
40 mg PO HS
metoprolol succinate 25 MG tablet extended release 24 hr
25 mg PO HS
cholecalciferol (vitamin D3) 2,000 UNITS tablet
2,000 units PO QPM
glipizide 5 MG tablet
5 mg PO DAILY
potassium chloride 10 MEQ capsule, extended release
10 meq PO TID
allopurinol 100 MG tablet
100 mg PO DAILY
Domperidone
10 mg PO TID
Patient Comments:
07/26/23 patient buys from [facility]
isosorbide mononitrate 30 MG tablet extended release 24 hr
30 mg PO DAILY@0700
Patient Comments:
pt not sure of dosage
ezetimibe [Zetia] 10 MG tablet
10 mg PO HS
Adults Multivitamin 1 EACH tablet
1 ea PO DAILY
polyethylene glycol 3350 [Miralax] 17 gram Powder In Packet
17 g PO DAILYPRN PRN (Reason: constipation)
therapeutic multivitamin Tablet
1 tab PO DAILY
levothyroxine [Synthroid] 125 mcg Tablet
125 mcg PO DAILY
Myrbetriq 50 mg Tablet Extended Release 24 Hr
50 mg PO DAILY
zolpidem [Ambien CR] 6.25 MG tablet,ext release multiphase
6.25 mg PO HSPRN PRN (Reason: sleep)
lansoprazole 30 mg Capsule,Delayed Release(Dr/Ec)
30 mg PO BID
oxycodone 10 mg Tablet
10 mg PO Q5H
Discharge Orders:
Discharge Patient (As Directed); Ordered 07/27/23
Ordered By: Susan Acuna
Discharge Date and Time
Print Language: HUNGARIAN
[2023-07-27 14:02] LABS: Procalcitonin 0.12 ng/ml (0.0-0.25)
--- NOTE | 2023-07-27 14:26 | CM ---
Alert awake oriented patient who lives her Tim in [facility] She is independent in all activities of daily living.She does not drive Tim drives her. Offered VN she requested [facility] at [facility].Spoke with
Lou at [facility] she accepted her . Referral in [facility].
[facility] Hx / [facility] hx
Pharmacy [facility]
PCP Dr Rivas
PLAN Home [facility] .
== END 2023-07-27 14:51 | disposition home health service (06) ==
LOC: 4 EAST ACU 13:57
PROVIDERS: Physician Assistant Medical; ADMITTING PHYSICIAN Internal Medicine; ATTENDING PHYSICIAN Internal Medicine; EMERGENCY PHYSICIAN Emergency Medicine; FAMILY PHYSICIAN Family Medicine
DX: R50.9 Fever, unspecified (principal); R53.1 Weakness; D72.829 Elevated white blood cell count, unspecified; R05.9 Cough, unspecified; J34.89 Other specified disorders of nose and nasal sinuses; K21.9 Gastro-esophageal reflux disease without esophagitis; E78.00 Pure hypercholesterolemia, unspecified; I25.10 Atherosclerotic heart disease of native coronary artery without angina pectoris; R42 Dizziness and giddiness; R26.2 Difficulty in walking, not elsewhere classified; K58.9 Irritable bowel syndrome, unspecified; M35.00 Sjogren syndrome, unspecified; E11.9 Type 2 diabetes mellitus without complications; M79.7 Fibromyalgia; Z86.711 Personal history of pulmonary embolism; Z98.1 Arthrodesis status; Z95.5 Presence of coronary angioplasty implant and graft; Z79.01 Long term (current) use of anticoagulants; Z79.890 Hormone replacement therapy; Z86.718 Personal history of other venous thrombosis and embolism; Z79.84 Long term (current) use of oral hypoglycemic drugs; Z88.0 Allergy status to penicillin; Z88.2 Allergy status to sulfonamides; Z88.6 Allergy status to analgesic agent; Z88.1 Allergy status to other antibiotic agents; Z91.041 Radiographic dye allergy status; Z66 Do not resuscitate; Z11.52 Encounter for screening for COVID-19
CPT/HCPCS: 71046; 80048; 81003; 81015; 83036; 83605; 83690; 84145; 84484; 85025; 85027; 87040; 87070; 87502; 87811; 93005; 96360; 97162; 99285; G0378

== ENCOUNTER → 2023-08-06 10:51 | Outpatient (REF) | payer MEDICARE, OTHER, SELFPAY ==
[2023-08-06 12:50] LABS: % Basophils 0.7 % (0-2); % Eosinophils 1.7 % (0-6); % Immature Granulocytes 2.3 % (0-0.5); % Lymphocytes 13.8 % (20.5-51.1); % Monocytes 7.1 % (1.7-9.3); % Neutrophils 74.4 % (42.2-75.2); Absolute Basophils 0.1 10^3/uL (0-0.2); Absolute Eosinophils 0.2 10^3/uL (0-0.7); Absolute Immature Granulocytes 0.2 10^3/uL (0-0.05); Absolute Lymphocytes 1.5 10^3/uL (1.2-3.4); Absolute Monocytes 0.8 10^3/uL (0.1-0.6); Absolute Neutrophils 7.8 10^3/uL (1.4-6.5); Hematocrit 36.6 % (37.0-47.0); Hemoglobin 12.2 g/dL (12.0-16.0); Mean Corp Hgb Conc. 33.3 g/dL (33.0-37.0); Mean Corpuscular Hgb 31.3 pg (27.0-31.0); Mean Corpuscular Volume 93.8 fL (81.0-99.0); Mean Platelet Volume 9.8 fL (7.4-10.4); Nucleated Red Blood Cells % 0 %; Platelet Count 238 10^3/uL (130-400); Red Cell Dist. Width 14.2 % (11.5-14.5); White Blood Cell Count 10.5 10^3/uL (4.8-10.8)
[2023-08-06 13:07] LABS: Erythrocyte Sed Rate 26 mm/hour (0-20)
[2023-08-06 13:19] LABS: ALT (SGPT) 19 U/L (0-35); AST (SGOT) 21 U/L (14-36); Albumin 4.3 g/dl (3.5-5.0); Alkaline Phosphatase 84 U/L (38-126); Blood Urea Nitrogen 10 mg/dl (7-17); Calcium 9.8 mg/dl (8.4-10.2); Carbon Dioxide 22 mmol/L (22-30); Chloride 103 mmol/L (98-107); Glucose 140 mg/dl (70-99); Potassium 4.5 mmol/L (3.5-5.1); Sodium 137 mmol/L (135-145); Total Bilirubin 0.9 mg/dl (0.2-1.3); Total Protein 6.7 g/dl (6.3-8.2); eGFR > 60.00
[2023-08-06 13:20] LABS: C-Reactive Protein < 5.00 mg/L (0.0-10.00)
== END ==
LOC: HWLAB 10:51
PROVIDERS: ATTENDING PHYSICIAN Internal Medicine Rheumatology; FAMILY PHYSICIAN Family Medicine
DX: M81.0 Age-related osteoporosis without current pathological fracture (principal); M31.6 Other giant cell arteritis
CPT/HCPCS: 36415; 80053; 82306; 85025; 85652; 86140

== ENCOUNTER 2023-12-30 09:15 | Inpatient (IN) | payer MEDICARE, OTHER, SELFPAY ==
[2023-12-26] VITALS (11 sets, daily range): BP systolic 119–176; BP diastolic 49–93; PULSE 76; O2SAT 95
--- NOTE | 2023-12-26 02:18 | ED.GENMED ---
History of Present Illness
General
Chief Complaint: Back Pain
Source: patient
Exam Limitations: none
Time Seen by Provider: 12/26/23 01:41
History of Present Illness
History of Present Illness:
This is a 83 year old female that comes in by ambulance with c/o back pain. States that she started a week ago with back pain. States that she called the PCP as she is taking Oxycodone and this wa snot helping. States that she was given Tramadol and
she had only one dose. States that she has been having trouble with her legs. State that she couldn't stand. States that tonight she went to the [facility] and she couldn't get out of the wheelchair. States that she was unable to transfer. States that she
then fell onto her right knee. States that she did not hit her head and is not taking any blood thinners. States that she chronically has abd pain. Denies any fever, chills, chest pain, SOB, nausea, vomiting, diarrhea, headache, dizziness, urinary
burning
Past History
Past History
ED Past Medical History: CAD, Cancer (Skin CA), Fibromyalgia, GERD, Hypercholesterolemia, NIDDM, Other ( Sjogren's syndrome, back pain, Numbness arms and legs. Compression fractures, PE/DVT, IBS, Gastroparesis, Anemia, Stroke Left eye) and Other
(Urinary retention, giant cell arteritis)
ED Past Surgical History: Appendectomy, Cardiac (Coronary Stents), (X 2), Orthopedic (Spinal fusion X 2, Right rotator cuff, ) and Other (Thyroidectomy, Cataracts, Left lumpectomy)
Social History
Tobacco: Non-smoker
Alcohol: None
Drug: None
Personal:
Living: with family
Employment: Retired
Family History
Family History: Other (Noncontributory)
Review of Systems
Review of Systems
All Other Systems: ROS reviewed and negative except as documented in HPI and ROS
Constitutional: Reports no symptoms; Denies fever or chills
EENT: Reports no symptoms
Respiratory: Reports no symptoms; Denies cough or trouble breathing
Cardiac: Reports no symptoms; Denies chest pain
ABD/GI: Reports abdominal pain (Chronic); Denies nausea, vomiting or diarrhea
: Reports no symptoms; Denies dysuria, frequency or urgency
Musculoskeletal: Reports back pain (thoracic and lumbar spine)
Skin: Reports no symptoms
Neurological: Reports no symptoms; Denies dizzy or headache
Psychiatric: Reports no symptoms
Phy Exam
General Physical Exam
General Presentation: no apparent distress
General age: appears stated age
General Skin: warm and dry
General Habitus: elderly
General Mental: alert
General Hydration: appears well hydrated
ENT Exam
ENT Exam: TM's normal, pharynx normal and neck supple
Eye Exam
Eye Exam: EOMI
Cardiovascular Exam
Cardiovascular Exam: regular rate/rhythm, no edema and normal peripheral pulses
Pulmonary Exam
Pulmonary Exam: lungs clear, no respiratory distress, no rales, chest non tender, no crackles, no rhonchi, no wheezing and no cough
Gastrointestinal Exam
Gastrointestinal Exam: normal bowel sounds, soft, no organomegaly, no pulsatile mass, non distended and tender (generalized abd tenderness with palpation that patient states is chronic)
Musculoskeletal Exam
Musculoskeletal Exam: back pain (Mid to low back pain on the spine and lateral to the spine with palpation) and no edema
Skin Exam
Skin Exam: normal color, warm/dry, no rash, no petechia and other (Skin tears to the right knee Half love distal to the knee and a [place] on the lateral aspect of the knee)
Psychiatric Exam
Psychiatric Exam: normal mood/affect
Course
Orders/Labs/Results
Orders:
Orders
12/26/23 02:16
CT Lumbar Spine W/o Iv Contras Urgent
Comment:
Reason For Exam: Mid to low back pain.
CT Thoracic Spine W/o Iv Contr Urgent
Comment:
Reason For Exam: back pain
Urinalysis Reflex To Culture Urgent
12/26/23 02:17
Acetaminophen [Tylenol] 1,000 mg PO NOW STA
12/26/23 02:31
Electrocardiogram (*1) Urgent
Reason for Study: Fatigue / Weakness
EKG- Treatment ONCE
12/26/23 02:40
Complete Blood Count/With Diff Urgent
Comprehensive Metabolic Panel Urgent
12/26/23 03:27
Oxycodone [Roxicodone] 10 mg PO NOW STA
12/26/23 03:51
Admit/Transfer Patient As Directed
Co-Sign Provider:
Level of Care: Observation services
Assign to:: Medical/Surgical
Physician / Group: shmuely
Diagnosis: Acute LBP complicated by acute gait dysfunction , weakness and Fall
Reason for Hospitalization: Acute LBP complicated by acute gait dysfunction , weakness and Fall
PRN Pain Medication Management As Directed
May give lesser potent ordered pain med per pt: Yes
preference::
Protocol:: Medication orders for pain may be administered in a
manner that supports deferring to patient preference
when the pt is:
- Requesting an ordered lesser potent pain medication.
Least to most potent pain medications are defined
as: acetaminophen < NSAID < tramadol < opioids
(morphine, oxycodone, hydromorphone).
- Requesting a lesser dose of the same medication IF
ORDERED.
- Requesting a less intrusive route of administration
if both routes are prescribed by the provider (PO <
IV).
12/26/23 03:55
Code Status As Directed
Resuscitation Status: Full Code
Abnormal Lab Results
12/26/23
02:40
MCH 32.0 H pg
(27.0-31.0)
Abs Immat Gran (auto) 0.1 H 10^3/uL
(0-0.05)
Absolute Neuts (auto) 7.0 H 10^3/uL
(1.4-6.5)
Absolute Lymphs (auto) 0.8 L 10^3/uL
(1.2-3.4)
Immature Gran % 1.1 H %
(0-0.5)
Neutrophils % 82.5 H %
(42.2-75.2)
Lymphocytes % 9.2 L %
(20.5-51.1)
Glucose 191 H mg/dl
(70-99)
12/26/23 02:40
12/26/23 02:40
Hyperglycemia.
Vital Signs
Initial and Last Documented VS:
Initial Vital Signs
Temp Pulse Resp BP Pulse Ox
97.9 F 84 18 176/75 98
12/26/23 00:45 12/26/23 00:45 12/26/23 00:45 12/26/23 00:45 12/26/23 00:45
Last Documented Vital Signs
Temp Pulse Resp BP Pulse Ox
97.9 F 84 18 176/75 98
12/26/23 00:45 12/26/23 00:45 12/26/23 00:45 12/26/23 00:45 12/26/23 02:45
MDM/Problems Addressed
Differential Diagnosis Includes:
Weakness, Compression fractures, Skin tears
MDM/Problems Addressed:
This is a 83 year old female that comes in with c/o back pain and leg weakness. States that she was unable to stand or get up. States that she fell trying to go to the [facility].
Will check labs, CT thoracic and lumbar spine. Patient will need admission for rehab and strengthening. .
Chronic conditions affecting care:
Chronic back pain
Acute Exacerbation and/or Progression of Chronic Illness:
Back pain
*Radiology
Radiology exam reviewed: radiology read reviewed (CT night hawk- T Spine: Since prior dated 12/04/2020, similar appearance of compression deformities and focal kyphosis at T8-9, resulting in severe canal stenosis at this level with 6mm of
retropulsion of both T8 and T9. NO acute fracture or traumatic malalignment. Calcified coronary atherosclerosis ) and all reviewed NAD by ED Provider (CT cont-Bibasilar atelectasis. L Spine: Evidnce of posterior spinal fusion from L3-L5 and cement
augmentation at L1 and L2. No acute fracture or traumatic malalignment. At least moderate canal narrowing at L1, with 4mm retropulsion of the fracture fragment. )
*Pulse Oximetry
Patient hypoxic: no
*EKG
Interpreted by ED Provider?: Yes
Heart Rate: 77
Rate: normal
Rhythm: sinus
[place]: left axis deviation
Interval: normal interval
QRS Pattern: right bundle branch block
Ischemia: no ischemia
*Scallop Cutter Machine Interpretation
Rate: Scallop Cutter Machine- N/A
*Critical Care Note
Total Time (30-74mins, 75-104mins- exclusive of procedures): Not Applicable
ED Attending Note
-
Portions of this chart may have been created with voice recognition software.� Occasional wrong word or��sound alike� substitutions may have occurred due to the inherent limitations of voice recognition software.
Discharge Plan
Departure
Patient Disposition: Admit
Date of Disposition: 12/26/23
Time of Disposition: 03:30
Admit to: Med/Surg
Presentation/result/management discussed w/ accepting MD/DO: Hospitalist
Patient with high blood pressure during this ER visit?: Yes
Condition: Good
Covid-19: Not Applicable
Discharge Problem:
Back pain, Ambulatory dysfunction, Falls
Prescriptions:
No Action
cevimeline [Evoxac] 30 MG capsule
30 mg PO TID
gabapentin 300 MG capsule
300 mg PO TID
cyclosporine [Restasis] 10 DROPS dropperette
1 drp BOTH EYES BID
atorvastatin 20 MG tablet
40 mg PO HS
metoprolol succinate 25 MG tablet extended release 24 hr
25 mg PO HS
cholecalciferol (vitamin D3) 2,000 UNITS tablet
2,000 units PO QPM
glipizide 5 MG tablet
5 mg PO DAILY
potassium chloride 10 MEQ capsule, extended release
10 meq PO TID
allopurinol 100 MG tablet
100 mg PO DAILY
Domperidone
10 mg PO TID
Patient Comments:
07/26/23 patient buys from [facility]
isosorbide mononitrate 30 MG tablet extended release 24 hr
30 mg PO DAILY@0700
Patient Comments:
pt not sure of dosage
ezetimibe [Zetia] 10 MG tablet
10 mg PO HS
Adults Multivitamin 1 EACH tablet
1 ea PO DAILY
polyethylene glycol 3350 [Miralax] 17 gram Powder In Packet
17 g PO DAILYPRN PRN (Reason: constipation)
therapeutic multivitamin Tablet
1 tab PO DAILY
levothyroxine [Synthroid] 125 mcg Tablet
125 mcg PO DAILY
mirabegron [Myrbetriq] 50 mg Tablet Extended Release 24 Hr
50 mg PO DAILY
oxycodone 10 mg Tablet
10 mg PO Q5H
calcium carbonate [Calcium 500] 500 mg calcium (1,250 mg) Tablet
500 mg PO DAILY
esomeprazole magnesium [Nexium] 40 mg Capsule,Delayed Release(Dr/Ec)
40 mg PO DAILY
zolpidem [Ambien CR] 6.25 mg Tablet,Ext Release Multiphase
6.25 mg PO HS
Linzess 290 mcg Capsule
290 mcg PO DAILY
Tylenol
1,000 mg PO TID PRN (Reason: pain)
Referrals:
Jacob Rivas DO [Family Provider] -
Interventions
Interventions:
*Risk Screen - Suicide Last Done: 12/26/23 02:12
*General Assessment Last Done: 12/26/23 03:06
*Neglect/Abuse Screening Last Done: 12/26/23 02:12
ED-Musculoskeletal Assessment Last Done: 12/26/23 02:12
ED- Neurological Assessment Last Done: 12/26/23 02:12
Discharge Date and Time
Print Language: TURKISH
[2023-12-26] MEDS: TYLENOL 1000 MG PO (02:31)
[2023-12-26 02:49] LABS: % Basophils 0.2 % (0-2); % Eosinophils 0.1 % (0-6); % Immature Granulocytes 1.1 % (0-0.5); % Lymphocytes 9.2 % (20.5-51.1); % Monocytes 6.9 % (1.7-9.3); % Neutrophils 82.5 % (42.2-75.2); Absolute Immature Granulocytes 0.1 10^3/uL (0-0.05); Absolute Lymphocytes 0.8 10^3/uL (1.2-3.4); Absolute Monocytes 0.6 10^3/uL (0.1-0.6); Hematocrit 41.7 % (37.0-47.0); Hemoglobin 14.4 g/dL (12.0-16.0); Mean Corp Hgb Conc. 34.5 g/dL (33.0-37.0); Mean Corpuscular Volume 92.7 fL (81.0-99.0); Mean Platelet Volume 9.1 fL (7.4-10.4); Nucleated Red Blood Cells % 0 %; Platelet Count 222 10^3/uL (130-400); Red Cell Dist. Width 13.8 % (11.5-14.5); White Blood Cell Count 8.4 10^3/uL (4.8-10.8)
[2023-12-26 03:04] LABS: ALT (SGPT) 18 U/L (0-35); AST (SGOT) 20 U/L (14-36); Albumin 4.4 g/dl (3.5-5.0); Alkaline Phosphatase 69 U/L (38-126); Blood Urea Nitrogen 14 mg/dl (7-17); Calcium 9.9 mg/dl (8.4-10.2); Carbon Dioxide 26 mmol/L (22-30); Chloride 103 mmol/L (98-107); Glucose 191 mg/dl (70-99); Potassium 4.3 mmol/L (3.5-5.1); Sodium 140 mmol/L (135-145); Total Bilirubin 0.5 mg/dl (0.2-1.3); Total Protein 6.5 g/dl (6.3-8.2); eGFR > 60.00
--- NOTE | 2023-12-26 03:33 | HPS.HSE ---
Family Physician
-
Family Physician: Jacob Rivas
Chief Complaint
-
LBP fo 1week, unable to walk, Fall
History of Present Illness
83F HX Fibromyalgia, Sjogren's syndrome, Spinal fusion BiB ambulance sen at ER for evalaution of back pain
- started a week ago
- PCP initiated Oxycodone and but not helping.
- couldn't able to stand due to pain and weakness
- she couldn't get out of the wheelchair and unable to transfer.
- consequently fell onto her right knee.
- did not hit her head
- not on blood thinners
- Currently on Medrol dose pack Day 3 by PCP
ROS:
Denies any fever, chills, chest pain, SOB, nausea, vomiting, diarrhea, headache, dizziness, urinary burning
Medical History
Past Medical History
Past Medical History: Reports Other
Additional Past Medical History:
CAD,
GERD,
Hypercholesterolemia,
NIDDM,
Fibromyalgia,
Sjogren's syndrome
IBS,
PE,
DVT
Urinary retention,
giant cell arteritis
Cardiac (Coronary Stents),
Thyroidectomy,
Spinal fusion
Past Surgical History: Reports Other
Additional Past Surgical History:
See above
Social History
Tobacco: Non-smoker
Alcohol: None
Drug: None
Personal:
Living: With Family
Employment: Retired
Family History
Family History: Not pertinent
Allergies / Home Medications
Allergies reflects when Allergies were last updated in [facility].
Home Medications with original date entered in [facility]
Allergy/Medication List:
Allergies
Allergy/AdvReac Type Severity Reaction Status Date / Time
Iodinated Contrast Media Allergy Shortness Verified 11/17/22 10:04
[Iodinated Contrast Media - of Breath,
Oral and] rash
levofloxacin [From Levaquin] Allergy Shortness Verified 11/17/22 10:04
of Breath,
Rash
nabumetone [From Relafen] Allergy STOMACH Verified 11/17/22 10:04
PROBLEMS,
SOB
naproxen [Naproxen] Allergy STOMACH Verified 11/17/22 10:04
PROBLEMS,
SOB
nifedipine [From Procardia] Allergy VOMITED X Verified 11/17/22 10:04
24 HRS, SOB
Penicillins Allergy Rash/COULD Verified 11/17/22 10:04
NOT BREATHE
sulfamethoxazole Allergy STOMACH Verified 11/17/22 10:04
[Sulfamethoxazole] PROBLEMS,
SOB
vancomycin [Vancomycin] Allergy TROUBLE Verified 11/17/22 10:04
BREATHING
Home Medications
cevimeline 30 mg capsule (Evoxac) 30 mg PO DAILY@0700 dry mouth 08/10/12
cyclosporine 0.05 % eye drops in a dropperette (Restasis) 1 drp BOTH EYES BID Eye condition 08/10/12
gabapentin 300 mg capsule 300 mg PO HS Neurological Condition 08/10/12
apixaban 5 mg tablet (Eliquis) 5 mg PO BID #60 tabs 06/27/16
atorvastatin 20 mg tablet 40 mg PO HS High cholesterol 06/27/16
cholecalciferol (vitamin D3) 50 mcg (2,000 unit) tablet 2,000 units PO QPM Supplement 01/15/17
metoprolol succinate 25 mg tablet,extended release 24 hr 25 mg PO HS Heart disease/condition 01/15/17
glipizide 5 mg tablet 5 mg PO BID Diabetes 02/02/17
levothyroxine 137 mcg tablet (Synthroid) 137 mcg PO DAILY@0700 Thyroid 02/02/17
Domperidone 10 mg PO TID Gastrointestinal issue 11/20/18
allopurinol 100 mg tablet 100 mg PO DAILY Gout 11/20/18
esomeprazole magnesium 40 mg capsule,delayed release (Nexium) 40 mg PO DAILY@0700 Gastrointestinal issue 11/20/18
potassium chloride 10 mEq capsule,extended release 10 meq PO TID Electrolyte Repletion 11/20/18
L.acidoph, paracasei,B. lactis 10 billion cell capsule 1 cap PO DAILY Supplement 06/29/20
acetaminophen 500 mg tablet (Tylenol Ex Str Arthritis Pain) 1,000 mg PO Q6 Pain 06/29/20
isosorbide mononitrate 30 mg tablet,extended release 24 hr 15 mg PO DAILY@0700 Heart disease/condition 06/29/20
ezetimibe 10 mg tablet (Zetia) 10 mg PO HS High cholesterol 07/01/20
multivit with minerals-iron 18 mg-folic ac 400 mcg-vit K 25 mcg tablet (Adults Multivitamin) 1 ea PO DAILY Supplement 07/01/20
docusate sodium 100 mg capsule 100 mg PO BID 07/02/20
hydrocodone 7.5 mg-acetaminophen 300 mg tablet 1 tab PO Q6 #14 tabs 07/02/20
hydromorphone 2 mg tablet (Dilaudid) 2 mg PO Q6H PRN sev pain #14 tabs 07/02/20
zolpidem 6.25 mg tablet,extended release,multiphase (Ambien CR) 6.25 mg PO HS Sleep #3 tabs 07/02/20
Review of Systems
-
Constitutional: Reports No Symptoms
EENT: Reports No Symptoms
Respiratory: Reports No Symptoms
Cardiac: Reports No Symptoms
Abdomen/GI: Reports No Symptoms
: Reports No Symptoms
Musculoskeletal: Reports See HPI
Skin: Reports No Symptoms
Neurological: Reports No Symptoms
Endocrine: Reports No Symptoms
Hematologic/Lymphatic: Reports No Symptoms
Psych: Reports No Symptoms
Physical Exam
Vital Signs
Vital Signs
Temp Pulse Resp BP Pulse Ox
97.9 F 84 18 176/75 98
12/26/23 00:45 12/26/23 00:45 12/26/23 00:45 12/26/23 00:45 12/26/23 02:45
Physical Exam
General: Well Developed, Well Nourished, No Apparent Distress, Comfortable and Conversant
HEENT: NormoCephalic, Atraumatic, No Ptosis, Nose Appears Normal and Ears Appear Normal
Respiratory: Clear
Cardiac: S1/S2 and Regular Rhythm
GI: Soft, Non Distended and Tender
Musculoskeletal: No Clubbing, No Cyanosis and No Edema
Skin: Warm and Dry; No Rash or Jaundice
Neuro: Awake, Alert, Oriented, AO x 3, No Motor Deficits and DTR's Intact & Symmetrical
Psych: Calm
Laboratory Results
-
12/26/23 02:40
12/26/23 02:40
Laboratory Results
Total Bilirubin 0.5 mg/dl (0.2-1.3) 12/26/23 02:40
AST 20 U/L (14-36) 12/26/23 02:40
ALT 18 U/L (0-35) 12/26/23 02:40
Alkaline Phosphatase 69 U/L (38-126) 12/26/23 02:40
Data Reviewed
-
CT Scan: Other (pending )
Lab Data: Labs Reviewed by me
Old Records: Reviewed
Impression/Plan
-
Vital Signs
Temp Pulse Resp BP Pulse Ox
97.9 F 84 18 176/75 98
12/26/23 00:45 12/26/23 00:45 12/26/23 00:45 12/26/23 00:45 12/26/23 02:45
Laboratory Tests
12/26/23
02:40
WBC 8.4
Hgb 14.4
Plt Count 222
Creatinine 0.6
eGFR > 60.00
CT Lx and Thx spine w/o IV contrast : pending
Last hospitalist admission: 07/26/23 - 07/27/23 PDX; Fever
ASSESSMENT & PLAN
Acute LBP complicated by acute gait dysfunction , weakness and Fall
HX Spinal fusion x2
Currently on Medrol dose pack Day 3 by PCP
- POS b/l Lumbago/sciatica
- Denied B & B incontinence. No saddle anaesthesia
- await CT Thx and Lx spine w/o IV contrast
- cont. Medrol dose pack
- add MS relaxant, Narcotic analgesia PRN with hold index for AMS
- PT/OT
- CRM consult
Known HX: Inactive
CAD with stents : on Atorvastatin, IMN,
GERD: on Nexium
Hypercholesterolemia,
NIDDM; on Glipizide, add ISS low
Fibromyalgia, Sjogren's syndrome
IBS,
PE, DVT
Urinary retention,
giant cell arteritis
Hypothyroid s/p Thyroidectomy: on LT4
DVT Px: LMWH
Code: Full
Obs MS
[2023-12-26] MEDS: ROXICODONE 10 MG PO ×5 (03:46→23:27)
[2023-12-26] MEDS: NEURONTIN 300 MG PO ×3 (08:44→21:10)
[2023-12-26] MEDS: SYNTHROID 125 MCG PO (08:44)
[2023-12-26] MEDS: RESTASIS 0.05% OPHTHALMIC EMULSION 1 DROPS BOTH EYES ×2 (08:44→21:01)
[2023-12-26] MEDS: TYLENOL 650 MG PO ×4 (08:45→21:02)
[2023-12-26] MEDS: IMDUR (EXTENDED RELEASE) 30 MG PO (08:45)
[2023-12-26] MEDS: ZYLOPRIM 100 MG PO (08:45)
[2023-12-26] MEDS: TYLENOL PO (08:46)
[2023-12-26 09:07] LABS: Glucose - Point of Care 148 mg/dl (70-99)
[2023-12-26] MEDS: PROTONIX 40 MG PO (09:11)
[2023-12-26] MEDS: GLUCOTROL 5 MG PO (09:11)
[2023-12-26] MEDS: FLEXERIL 5 MG PO ×3 (09:11→21:14)
[2023-12-26] MEDS: KCL 10 MEQ PO ×3 (09:11→21:14)
[2023-12-26] MEDS: MEDROL 24 MG PO (10:12)
[2023-12-26] MEDS: LINZESS 290 MCG PO (10:12)
[2023-12-26 13:53] LABS: Glucose - Point of Care 98 mg/dl (70-99)
--- NOTE | 2023-12-26 15:36 | W.PN.HOSP.TC ---
Today's Communication/Plan
-
MRI of the thoracic and lumbar spine
Appreciate neurosurgery
Assessment / Plan
Assessment / Plan
Physical Exam
General: Not in acute distress
HEENT: Normocephalic
Respiratory: Clear to Auscultation Bilaterally
Cardiac: S1/S2 and Regular Rhythm
GI: Soft, Non Distended and Nontender. Positive bowel sounds.
Musculoskeletal: No Cyanosis and No Edema
Skin: Warm and Dry
Neuro: Awake, Alert, Oriented, AO x 3. Strength and Sensation intact in the bilateral lower extremities.
Psych: Calm

CT Lumbar and Thoracic Spine (as per radiologist's report)
'IMPRESSION:
THORACIC SPINE:
1. SEVERE CHRONIC FRACTURES of the T8 and T9 vertebral bodies with complete vertebral body collapse, severe retropulsion of the posterior cortex into the anterior epidural space, and a severe kyphosis in the mid-lower thoracic spine which appears
unchanged.
2. MODERATE SPINAL CORD COMPRESSION and CENTRAL CANAL STENOSIS at the T8-T9 levels which appears unchanged.
3. Severe bilateral neural foraminal narrowing at T8/T9.
4. Mild multilevel discogenic degenerative disease at the other thoracic levels.
5. Severe discogenic degenerative disease in the lower cervical spine with a disc-osteophyte complex at C5/C6 causing mild spinal cord compression, mild central canal stenosis, and severe right neural foraminal narrowing.
LUMBAR SPINE:
1. CHRONIC VERTEBRAL BODY ENDPLATE FRACTURES of L1 and L2 which have been treated with vertebroplasty. Moderate loss of vertebral body height at L1 with retropulsion of the posterior cortex into the anterior epidural space causing MODERATE CENTRAL
CANAL STENOSIS which appears unchanged.
2. MODERATE to SEVERE CENTRAL CANAL STENOSIS at L2/L3 secondary to a large diffuse disc bulge and bilateral facet joint arthrosis. Moderate to severe left neural foraminal narrowing at L2/L3.
3. Previous laminectomies and bilateral posterior instrumentation at L3/L4 and L4/L5.
4. 8.2 mm grade 2 anterolisthesis of L4 on L5 which appears unchanged.'

Assessment/Plan
Acute LBP complicated by acute gait dysfunction , weakness and Fall
History of Spinal fusion x2
Currently on Medrol dose pack Day 3 by PCP
- POS b/l Lumbago/sciatica
- No bowel or bladder incontinence, and no saddle anaesthesia present
- CT imaging report as above
- Medrol dose pack can be continued for now -- discussed this with neurosurgery today and it is okay to continue for now
- Pain control
- PT/OT
-Consulted neurosurgery, appreciate evaluation and recommendations
Additional Medical History
CAD with stents -- Continue home high-intensity statin, isosorbide mononitrate, metoprolol succinate, and potassium chloride
GERD -- on Nexium
Hypercholesterolemia -- continue home statin
NIDDM -- on Glipizide, continue Insulin Sliding Scale
Fibromyalgia, Sjogren's syndrome
IBS -- continue Linzess
PE, DVT
Urinary retention,
giant cell arteritis
Hypothyroid s/p Thyroidectomy: on LT4
DVT Px: LMWH
Code: Full Code
Anticipated Discharge: > 48 hours
Subjective/Interval History
-
Date of Service: December 26, 2023
Patient was seen and examined. She reported the same back pain she came in with, and denied any numbness, tingling, urinary or bowel incontinence or any other symptoms.
Objective Data
-
Vital Signs:
Vital Signs
Temp Pulse Resp BP Pulse Ox
97.9 F 77 18 145/93 96
12/26/23 07:50 12/26/23 07:50 12/26/23 07:50 12/26/23 07:50 12/26/23 07:50
--- NOTE | 2023-12-26 16:44 | CM ---
Addendum entered by Deanna Jackson RN 12/26/23 16:48:
HAIDER given copy ,explained , pt declined to sign .
Original Note:
Alert awake oriented patient who lives with her Tim in a Independent living at [facility].She is independent in all activates of daily living.She uses walker . She will need PT OT for Dc Planning.
Sanjay VN in past [facility] hx
Pharmacy [facility]
PCP Dr Rivas
PLAN She will need PT OT for Dc Planning Possible SNF.
[2023-12-26] MEDS: LOVENOX 40 MG SC (16:53)
[2023-12-26] MEDS: VITAMIN D3 (cholecalciferol) 50 MCG PO (16:54)
[2023-12-26 17:56] LABS: Glucose - Point of Care 186 mg/dl (70-99)
[2023-12-26] MEDS: NON-FORMULARY ITEM PO (18:23)
[2023-12-26] MEDS: NON-FORMULARY ITEM 50 MG PO (18:23)
[2023-12-26] MEDS: NON-FORMULARY ITEM 10 MG PO ×2 (18:24→21:04)
[2023-12-26] MEDS: LIPITOR 40 MG PO (21:02)
[2023-12-26] MEDS: TOPROL XL 25 MG PO (21:05)
[2023-12-26] MEDS: NON-FORMULARY ITEM 30 MG PO (21:05)
[2023-12-26] MEDS: COLACE PO (21:33)
[2023-12-26 21:34] LABS: Glucose - Point of Care 248 mg/dl (70-99)
[2023-12-26] MEDS: SENOKOT PO (21:34)
--- NOTE | 2023-12-26 22:08 | PTCARENOTE ---
rodri this pt in bed 338 bed 2 is refusing our potassium. She has a tablet at home she is going to bring in from home. Her potassium is 4.3. 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
[2023-12-26] MEDS: NON-FORMULARY ITEM 6.25 MG PO (23:25)
[2023-12-26] MEDS: ZETIA 10 MG PO (23:27)
[2023-12-27] MEDS: TYLENOL PO ×2 (00:33→03:50)
[2023-12-27] MEDS: ROXICODONE PO (03:58)
[2023-12-27] MEDS: SYNTHROID 125 MCG PO (05:52)
[2023-12-27] MEDS: ROXICODONE 5 MG PO (06:16)
[2023-12-27] MEDS: LINZESS 290 MCG PO (06:51)
[2023-12-27 07:38] LABS: Glucose - Point of Care 134 mg/dl (70-99)
[2023-12-27 08:20] VITALS: BP 167/95
[2023-12-27] MEDS: PROTONIX 40 MG PO (09:55)
[2023-12-27] MEDS: RESTASIS 0.05% OPHTHALMIC EMULSION 1 DROPS BOTH EYES ×2 (09:55→21:28)
[2023-12-27] MEDS: ZYLOPRIM 100 MG PO (09:55)
[2023-12-27] MEDS: SENOKOT 17.2 MG PO ×2 (09:55→21:28)
[2023-12-27] MEDS: TYLENOL 650 MG PO ×4 (09:55→21:28)
[2023-12-27] MEDS: NEURONTIN 300 MG PO ×3 (09:55→21:30)
[2023-12-27] MEDS: THERAGRAN 1 TABLET PO (09:56)
[2023-12-27] MEDS: ROXICODONE 10 MG PO ×4 (09:56→23:00)
[2023-12-27] MEDS: OSCAL CAL 500 500 MG PO (09:57)
[2023-12-27] MEDS: COLACE 100 MG PO ×2 (09:57→21:28)
[2023-12-27] MEDS: NON-FORMULARY ITEM 50 MG PO (10:09)
[2023-12-27] MEDS: NON-FORMULARY ITEM 10 MG PO ×3 (10:09→21:31)
[2023-12-27] MEDS: NON-FORMULARY ITEM 30 MG PO ×3 (10:10→21:32)
[2023-12-27] MEDS: GLUCOTROL 5 MG PO (10:18)
[2023-12-27] MEDS: FLEXERIL 5 MG PO ×3 (10:18→21:30)
[2023-12-27] MEDS: KCL PO ×2 (10:18→17:42)
[2023-12-27] MEDS: IMDUR (EXTENDED RELEASE) 30 MG PO (11:32)
[2023-12-27] MEDS: MEDROL 20 MG PO (11:46)
--- NOTE | 2023-12-27 12:07 | CON.NS ---
Consultation
-
Date/Time Consultation Performed: 12/27/2023; 12:15 pm
Performing Provider: Swetha
Chief Complaint
History of Present Illness
This is a neurosurgical consultation on an 83-year-old female with a history of fibromyalgia, Sjogren's syndrome, spinal fusion who was brought in for ongoing back pain that started approximate 1 week prior. Primary care physician started narcotic
pain medications which is not helping. She reports that she is unable to stand, ambulate, secondary to the weakness. Subsequently, she fell onto her right knee, but did not hit her head. PCP also started Medrol Dosepak for her ongoing back pain.
Patient had a CT of the thoracic, lumbar spine which demonstrated spinal fusion hardware, without any obvious evidence of new fractures in the lumbar spine. Patient does have evidence of vertebroplasty at L1, L2 in the past. There is evidence of
thoracic compression fractures which appear to be stable, compared with previous imaging studies. Due to ongoing back pain, neurosurgery consulted for further input.
Patient seen and examined. She reports that approximately 5 to 6 days ago, as she was trying to climb onto an SUV to come to visit her in the hospital, she had acute onset of bilateral lower lumbar/sacral back pain. She reports the pain is
primarily paraspinal in nature and bilateral sacral/hip area. She denies any obvious radiation to the lower extremities.
Review of Systems
-
A 10 point review of systems including constitutional, ENT, cardiovascular, respiratory, GI, , neurologic, neurologic, hematologic, musculoskeletal, was performed, which was negative, except for stated in HPI.
Medication and Allergies
Home Medications
Home Medications
�Medication �Instructions �Recorded
cevimeline 30 mg capsule (Evoxac) 30 mg PO TID dry mouth 08/10/12
cyclosporine 0.05 % eye drops in a 1 drp BOTH EYES BID Eye condition 08/10/12
dropperette (Restasis)
gabapentin 300 mg capsule 300 mg PO TID Neurological 08/10/12
Condition
atorvastatin 20 mg tablet 40 mg PO HS High cholesterol 06/27/16
cholecalciferol (vitamin D3) 50 2,000 units PO QPM Supplement 01/15/17
mcg (2,000 unit) tablet
metoprolol succinate 25 mg 25 mg PO HS Heart disease/condition 01/15/17
tablet,extended release 24 hr
glipizide 5 mg tablet 5 mg PO DAILY Diabetes 02/02/17
Domperidone 10 mg PO TID Gastrointestinal issue 11/20/18
allopurinol 100 mg tablet 100 mg PO DAILY Gout 11/20/18
potassium chloride 10 mEq 10 meq PO TID Electrolyte Repletion 11/20/18
capsule,extended release
isosorbide mononitrate 30 mg 30 mg PO DAILY@0700 Heart 06/29/20
tablet,extended release 24 hr disease/condition
ezetimibe 10 mg tablet (Zetia) 10 mg PO HS High cholesterol 07/01/20
multivit with minerals-iron 18 1 ea PO DAILY Supplement 07/01/20
mg-folic ac 400 mcg-vit K 25 mcg
tablet (Adults Multivitamin)
levothyroxine 125 mcg tablet 125 mcg PO DAILY Thyroid 07/26/23
(Synthroid)
mirabegron 50 mg tablet,extended 50 mg PO DAILY Urinary Issue 07/26/23
release 24 hr (Myrbetriq)
oxycodone 10 mg tablet 10 mg PO Q5H Pain 07/26/23
polyethylene glycol 3350 17 gram 17 g PO DAILYPRN PRN constipation 07/26/23
oral powder packet (Miralax)
therapeutic multivitamin 1 tab PO DAILY Supplement 07/26/23
Tylenol 1,000 mg PO TID PRN pain 12/26/23
calcium carbonate 500 mg PO DAILY 12/26/23
esomeprazole magnesium 40 mg 40 mg PO DAILY 12/26/23
capsule,delayed release (Nexium)
linaclotide 290 mcg capsule 290 mcg PO DAILY 12/26/23
(Linzess)
zolpidem 6.25 mg tablet,extended 6.25 mg PO HS 12/26/23
release,multiphase (Ambien CR)
Allergies
Allergies
Allergy/AdvReac Type Severity Reaction Status Date / Time
Iodinated Contrast Media Allergy Shortness Verified 11/17/22 10:04
[Iodinated Contrast Media - of Breath,
Oral and] rash
levofloxacin [From Levaquin] Allergy Shortness Verified 11/17/22 10:04
of Breath,
Rash
nabumetone [From Relafen] Allergy STOMACH Verified 11/17/22 10:04
PROBLEMS,
SOB
naproxen [Naproxen] Allergy STOMACH Verified 11/17/22 10:04
PROBLEMS,
SOB
nifedipine [From Procardia] Allergy VOMITED X Verified 11/17/22 10:04
24 HRS, SOB
Penicillins Allergy Rash/COULD Verified 11/17/22 10:04
NOT BREATHE
sulfamethoxazole Allergy STOMACH Verified 11/17/22 10:04
[Sulfamethoxazole] PROBLEMS,
SOB
vancomycin [Vancomycin] Allergy TROUBLE Verified 11/17/22 10:04
BREATHING
Physical Exam
-
Exam:
Awake, alert, no apparent distress.
Cranial nerves II through XII are grossly intact.
Motor: 5/5 strength bilaterally in upper extremities and lower extremities.
Kyphotic curvature.
Sensation to light touch intact bilaterally in upper EXTR lower EXTR
Tenderness to palpation over bilateral sacral area. Healed lumbar incision noted over L3-L5.
Head is normocephalic, atraumatic.
Neck is supple.
Breathing nonlabored
Abdomen is not distended
Cardiac: Regular rate
Extremities are warm
Lumbar spine performed on 12/26/2023 was reviewed. This was also compared with previous CT of the abdomen/pelvis which was performed on 07/21/2023. There is evidence of stable hardware placement extending from L3-L5 without any obvious evidence of
loosening or lucency surrounding the hardware to suggest pseudoarthrosis/fracture of hardware. There is evidence of vertebroplasty material noted at L2, L1. No obvious evidence of new retropulsion or spinal canal compromise is seen on the lumbar
CT. Appearance appears to be stable between the 2 studies from November 2023, as well as June 2023. Additionally, thoracic spine CT demonstrates stable compression deformities of T8 and T9 with near complete collapse of the vertebral bodies,
consistent with vertebral plana at T8, T9. This appears to be stable when comparing imaging between June 2023 and November 2023. No obvious evidence of increased height loss, or retropulsion is seen.
Problems
-
Problem Status Onset Code
Falls R29.6
Ambulatory dysfunction R26.2
Back pain M54.9
Assessment / Plan
-
This is an 83-year-old female with a history of L3-L5 spinal fusion surgery, and what appears like multiple compression fractures, likely indicative of osteoporosis, in the setting of fibromyalgia, who presents with intractable back pain, primarily
over the sacral area. CT of the thoracic and lumbar spine performed yesterday, does not demonstrate any obvious new findings when compared to previous CT performed in June 2023. However, in light of patient's history of having compression
fractures, cannot exclude/rule out occult compression fracture, including sacral insufficiency fracture.
Therefore, agree with MRI of the thoracic, lumbar spine, including pelvis.
Continue with pain control.
[2023-12-27 12:18] LABS: Glucose - Point of Care 149 mg/dl (70-99)
[2023-12-27 13:11] LABS: Glycohemoglobin (HgbA1c) 6.6 % (4.0-5.6)
[2023-12-27 15:35] VITALS: BP 130/81
--- NOTE | 2023-12-27 15:37 | W.PN.HOSP.TC ---
Today's Communication/Plan
-
MRI Thursday
Needs to be NPO after midnight Thursday for MRI Thursday, anesthesiology will help with patient getting an MRI; anesthesiology consulted
Assessment / Plan
Assessment / Plan
Physical Exam
General: Not in acute distress
HEENT: Normocephalic
Respiratory: Clear to Auscultation Bilaterally
Cardiac: S1/S2 and Regular Rhythm
GI: Soft, Non Distended and Nontender. Positive bowel sounds.
Musculoskeletal: No Cyanosis and No Edema
Skin: Warm and Dry
Neuro: Awake, Alert, Oriented, AO x 3. Strength and Sensation intact in the bilateral lower extremities.
Psych: Calm

CT Lumbar and Thoracic Spine (as per radiologist's report)
'IMPRESSION:
THORACIC SPINE:
1. SEVERE CHRONIC FRACTURES of the T8 and T9 vertebral bodies with complete vertebral body collapse, severe retropulsion of the posterior cortex into the anterior epidural space, and a severe kyphosis in the mid-lower thoracic spine which appears
unchanged.
2. MODERATE SPINAL CORD COMPRESSION and CENTRAL CANAL STENOSIS at the T8-T9 levels which appears unchanged.
3. Severe bilateral neural foraminal narrowing at T8/T9.
4. Mild multilevel discogenic degenerative disease at the other thoracic levels.
5. Severe discogenic degenerative disease in the lower cervical spine with a disc-osteophyte complex at C5/C6 causing mild spinal cord compression, mild central canal stenosis, and severe right neural foraminal narrowing.
LUMBAR SPINE:
1. CHRONIC VERTEBRAL BODY ENDPLATE FRACTURES of L1 and L2 which have been treated with vertebroplasty. Moderate loss of vertebral body height at L1 with retropulsion of the posterior cortex into the anterior epidural space causing MODERATE CENTRAL
CANAL STENOSIS which appears unchanged.
2. MODERATE to SEVERE CENTRAL CANAL STENOSIS at L2/L3 secondary to a large diffuse disc bulge and bilateral facet joint arthrosis. Moderate to severe left neural foraminal narrowing at L2/L3.
3. Previous laminectomies and bilateral posterior instrumentation at L3/L4 and L4/L5.
4. 8.2 mm grade 2 anterolisthesis of L4 on L5 which appears unchanged.'

Assessment/Plan
Acute LBP complicated by acute gait dysfunction , weakness and Fall
History of Spinal fusion x2
Currently on Medrol dose pack Day 3 by PCP
- POS b/l Lumbago/sciatica
- No bowel or bladder incontinence, and no saddle anaesthesia present
- CT imaging report as above
- Medrol dose pack can be continued for now -- discussed this with neurosurgery today and it is okay to continue for now
- Pain control
- PT/OT
- Consulted neurosurgery, appreciate evaluation and recommendations: okay to continue and complete patient's Medrol Dose Bladimir
- Patient is very anxious about getting any kind of contrast (even MRI contrast) given her SOB with iodinated contrast
- Spoke with neurosurgery: okay to do MRI WITHOUT contrast of lumbar spine and pelvis -- ordered this
- Patient says she needs to be 'knocked out' for the MRI -- therefore consulted anesthesiology for sedation and pain management during MRI
- After discussion with anesthesiologist MRI is scheduled for Thursday12/29/23 (due to holidays) -- anesthesiologist has been consulted
- Patient will need to be NPO after midnight on Thursday night for MRI on Thursday
Additional Medical History
CAD with stents -- Continue home high-intensity statin, isosorbide mononitrate, metoprolol succinate, and potassium chloride
GERD -- on Nexium
Hypercholesterolemia -- continue home statin
NIDDM -- on Glipizide, continue Insulin Sliding Scale
Fibromyalgia, Sjogren's syndrome
IBS -- continue Linzess
PE, DVT
Urinary retention,
giant cell arteritis
Hypothyroid s/p Thyroidectomy: on LT4
DVT Px: LMWH
Code: Full Code
Anticipated Discharge: > 48 hours
Subjective/Interval History
-
Date of Service: December 27, 2023
Patient was seen and examined. She felt a little better today, per patient.
Objective Data
-
Vital Signs:
Vital Signs
Temp Pulse Resp BP Pulse Ox
98.0 F 97 20 130/81 98
12/27/23 15:35 12/27/23 15:35 12/27/23 15:35 12/27/23 15:35 12/27/23 15:35
I&O
12/26/23 12/27/23 12/28/23
06:59 06:59 06:59
Intake Total 1020 / 1020 480 / 480
Output Total 400 / 400
Balance 620 / 620 480 / 480
[2023-12-27 15:51] LABS: Urine Albumin Negative (Neg - Trace); Urine Bilirubin Negative (Negative); Urine Character Clear (Clear); Urine Color Straw; Urine Glucose Negative (Negative); Urine Ketone Negative (Negative); Urine Leukocyte 1+ (Negative); Urine Nitrite Negative (Negative); Urine Occult Blood Negative (Negative); Urine Specific Gravity 1.005 (<1.030); Urine Urobilinogen Negative (Neg - 1+)
[2023-12-27 16:07] LABS: Urine Bacteria Few (Negative); Urine Red Blood Cell 0-2 /HPF (0-2); Urine Squamous Cell 0-2 /LPF (Few)
[2023-12-27 17:24] LABS: Glucose - Point of Care 230 mg/dl (70-99)
[2023-12-27] MEDS: VITAMIN D3 (cholecalciferol) 50 MCG PO (17:25)
[2023-12-27] MEDS: LOVENOX 40 MG SC (17:25)
[2023-12-27] MEDS: NON-FORMULARY ITEM 1 UNIT PO ×2 (17:32→21:33)
[2023-12-27] MEDS: TOPROL XL 25 MG PO (21:29)
[2023-12-27] MEDS: LIPITOR 40 MG PO (21:30)
[2023-12-27] MEDS: ZETIA 10 MG PO (21:30)
[2023-12-27 21:31] LABS: Glucose - Point of Care 218 mg/dl (70-99)
[2023-12-27] MEDS: NON-FORMULARY ITEM 6.25 MG PO (23:00)
[2023-12-27 23:43] VITALS: BP 139/76
[2023-12-28] MEDS: TYLENOL PO ×2 (00:42→04:37)
[2023-12-28] MEDS: ROXICODONE PO (04:38)
[2023-12-28] MEDS: ROXICODONE 10 MG PO ×4 (06:12→20:23)
[2023-12-28] MEDS: LINZESS 290 MCG PO (06:12)
[2023-12-28] MEDS: SYNTHROID 125 MCG PO (06:12)
[2023-12-28] MEDS: IMDUR (EXTENDED RELEASE) 30 MG PO (06:12)
[2023-12-28 07:00] VITALS: BP 131/74
[2023-12-28 08:00] LABS: % Basophils 0.9 % (0-2); % Eosinophils 0.4 % (0-6); % Immature Granulocytes 2.3 % (0-0.5); % Lymphocytes 17.6 % (20.5-51.1); % Monocytes 7.5 % (1.7-9.3); % Neutrophils 71.3 % (42.2-75.2); Absolute Basophils 0.1 10^3/uL (0-0.2); Absolute Immature Granulocytes 0.2 10^3/uL (0-0.05); Absolute Lymphocytes 1.4 10^3/uL (1.2-3.4); Absolute Monocytes 0.6 10^3/uL (0.1-0.6); Absolute Neutrophils 5.7 10^3/uL (1.4-6.5); Hematocrit 41.9 % (37.0-47.0); Mean Corp Hgb Conc. 35.8 g/dL (33.0-37.0); Mean Corpuscular Hgb 32.1 pg (27.0-31.0); Mean Corpuscular Volume 89.7 fL (81.0-99.0); Mean Platelet Volume 10.1 fL (7.4-10.4); Nucleated Red Blood Cells % 0 %; Platelet Count 261 10^3/uL (130-400); Red Blood Cell Count 4.67 10^6/uL (4.20-5.40); Red Cell Dist. Width 13.8 % (11.5-14.5)
[2023-12-28] MEDS: NON-FORMULARY ITEM 1 MG PO ×2 (08:17→08:21)
[2023-12-28] MEDS: COLACE 100 MG PO (08:19)
[2023-12-28] MEDS: TYLENOL 650 MG PO ×4 (08:19→20:22)
[2023-12-28] MEDS: THERAGRAN 1 TABLET PO (08:19)
[2023-12-28] MEDS: NEURONTIN 300 MG PO ×3 (08:19→22:46)
[2023-12-28] MEDS: GLUCOTROL 5 MG PO (08:19)
[2023-12-28] MEDS: SENOKOT 17.2 MG PO (08:19)
[2023-12-28] MEDS: OSCAL CAL 500 500 MG PO (08:19)
[2023-12-28] MEDS: PROTONIX 40 MG PO (08:20)
[2023-12-28] MEDS: FLEXERIL 5 MG PO ×3 (08:20→22:46)
[2023-12-28] MEDS: ZYLOPRIM 100 MG PO (08:20)
[2023-12-28] MEDS: NON-FORMULARY ITEM 50 MG PO (08:22)
[2023-12-28] MEDS: NON-FORMULARY ITEM 1 UNIT PO ×3 (08:22→22:45)
[2023-12-28] MEDS: RESTASIS 0.05% OPHTHALMIC EMULSION 1 DROPS BOTH EYES ×2 (08:23→20:23)
[2023-12-28] MEDS: MEDROL 16 MG PO (08:25)
[2023-12-28 08:32] LABS: Blood Urea Nitrogen 18 mg/dl (7-17); Calcium 10.1 mg/dl (8.4-10.2); Carbon Dioxide 26 mmol/L (22-30); Chloride 100 mmol/L (98-107); Glucose 101 mg/dl (70-99); Magnesium 2.2 mg/dl (1.6-2.3); Potassium 4.6 mmol/L (3.5-5.1); Sodium 140 mmol/L (135-145); eGFR > 60.00
[2023-12-28 08:34] LABS: Glucose - Point of Care 99 mg/dl (70-99)
--- NOTE | 2023-12-28 11:37 | W.PN.HOSP.TC ---
Addendum entered and electronically signed by Mary Ellen Everett MD 12/28/23 11:56:
noted urine culture was sent, but pt denies to any urinary symptoms.
Original Note:
Today's Communication/Plan
-
see A/P
Assessment / Plan
Assessment / Plan
Physical Exam
General: Not in acute distress
HEENT: Normocephalic
Respiratory: Clear to Auscultation Bilaterally
Cardiac: S1/S2 and Regular Rhythm
GI: Soft, Non Distended and Nontender. Positive bowel sounds.
Musculoskeletal: No Cyanosis and No Edema
Skin: Warm and Dry
Neuro: Awake, Alert, Oriented, AO x 3. Strength and Sensation intact in the bilateral lower extremities.
Psych: Calm
CT THORACIC SPINE:
1. SEVERE CHRONIC FRACTURES of the T8 and T9 vertebral bodies with complete vertebral body collapse, severe retropulsion of the posterior cortex into the anterior epidural space, and a severe kyphosis in the mid-lower thoracic spine which appears
unchanged.
2. MODERATE SPINAL CORD COMPRESSION and CENTRAL CANAL STENOSIS at the T8-T9 levels which appears unchanged.
3. Severe bilateral neural foraminal narrowing at T8/T9.
4. Mild multilevel discogenic degenerative disease at the other thoracic levels.
5. Severe discogenic degenerative disease in the lower cervical spine with a disc-osteophyte complex at C5/C6 causing mild spinal cord compression, mild central canal stenosis, and severe right neural foraminal narrowing.
CT LUMBAR SPINE:
1. CHRONIC VERTEBRAL BODY ENDPLATE FRACTURES of L1 and L2 which have been treated with vertebroplasty. Moderate loss of vertebral body height at L1 with retropulsion of the posterior cortex into the anterior epidural space causing MODERATE CENTRAL
CANAL STENOSIS which appears unchanged.
2. MODERATE to SEVERE CENTRAL CANAL STENOSIS at L2/L3 secondary to a large diffuse disc bulge and bilateral facet joint arthrosis. Moderate to severe left neural foraminal narrowing at L2/L3.
3. Previous laminectomies and bilateral posterior instrumentation at L3/L4 and L4/L5.
4. 8.2 mm grade 2 anterolisthesis of L4 on L5 which appears unchanged.'
A/P:
# Acute LBP/sacral area pain, with acute gait dysfunction, weakness and fall
# History of L3-L5 spinal fusion surgery
Currently on Medrol dose pack by PCP
No bowel or bladder incontinence, no saddle anaesthesia
CT imaging report as above
Pain control
Neuro surgery on board
Check MRI WITHOUT contrast of lumbar spine and pelvis.
Anesthesiology for sedation and pain management during MRI
PT OT recc SNF
Other chronic medical conditions
# CAD with stents, continue home high-intensity statin, isosorbide mononitrate, metoprolol succinate, and potassium chloride
# GERD on Nexium
# Hypercholesterolemia, continue home statin
# NIDDM on Glipizide, continue Insulin Sliding Scale
# Fibromyalgia, Sjogren's syndrome
# IBS, continue Linzess
# h/o PE, completed course of DOAC for 1 year, was seeing Heme for this
# Urinary retention,
# giant cell arteritis
# Hypothyroid s/p Thyroidectomy on LT4
DVT Px: LMWH
Code: Full Code
Anticipated Discharge: 24 - 48 hours
Subjective/Interval History
-
Date of Service: December 28, 2023
Objective Data
-
Labs:
Laboratory Results
12/28/23
06:38
WBC 8.0
Hgb 15.0
Hct 41.9
Plt Count 261
Sodium 140
Potassium 4.6
Chloride 100
Carbon Dioxide 26
BUN 18 H
Creatinine 0.6
Glucose 101 H
Calcium 10.1
Vital Signs:
Vital Signs
Temp Pulse Resp BP Pulse Ox
36.7 C 78 17 131/74 94
12/28/23 07:00 12/28/23 07:00 12/28/23 07:00 12/28/23 07:00 12/28/23 07:00
I&O
12/27/23 12/28/23 12/29/23
06:59 06:59 06:59
Intake Total 1020 / 1020 960 / 960
Output Total 400 / 400
Balance 620 / 620 960 / 960
[2023-12-28 12:28] LABS: Glucose - Point of Care 194 mg/dl (70-99)
[2023-12-28 12:46] LABS: C-Reactive Protein < 5.00 mg/L (0.0-10.00)
[2023-12-28 15:00] VITALS: BP 147/81
[2023-12-28] MEDS: NON-FORMULARY ITEM 30 MG PO ×2 (15:53→22:45)
[2023-12-28] MEDS: NON-FORMULARY ITEM 10 MG PO ×2 (15:54→22:44)
[2023-12-28 16:37] LABS: Glucose - Point of Care 260 mg/dl (70-99)
[2023-12-28] MEDS: LOVENOX 40 MG SC (17:15)
[2023-12-28] MEDS: VITAMIN D3 (cholecalciferol) 50 MCG PO (17:15)
[2023-12-28] MEDS: SENOKOT PO ×2 (20:23→20:29)
[2023-12-28] MEDS: COLACE PO ×2 (20:23→20:29)
[2023-12-28 22:05] LABS: Glucose - Point of Care 130 mg/dl (70-99)
[2023-12-28] MEDS: ZETIA 10 MG PO (22:46)
[2023-12-28] MEDS: LIPITOR 40 MG PO (22:46)
[2023-12-28] MEDS: NON-FORMULARY ITEM 6.25 MG PO (22:48)
[2023-12-28] MEDS: TOPROL XL 25 MG PO (22:49)
[2023-12-28] MEDS: ROXICODONE 5 MG PO (23:02)
[2023-12-28 23:07] VITALS: BP 146/85
[2023-12-29] VITALS (7 sets, daily range): BP systolic 18–152; BP diastolic 66–84; PULSE 80; O2SAT 98
[2023-12-29] MEDS: TYLENOL PO ×3 (00:56→21:05)
[2023-12-29] MEDS: ROXICODONE PO (01:09)
[2023-12-29] MEDS: SYNTHROID 125 MCG PO (05:04)
[2023-12-29] MEDS: ROXICODONE 10 MG PO ×4 (05:04→21:06)
[2023-12-29 07:15] LABS: Glucose - Point of Care 112 mg/dl (70-99)
[2023-12-29] MEDS: ZYLOPRIM 100 MG PO (08:10)
[2023-12-29] MEDS: OSCAL CAL 500 500 MG PO (08:10)
[2023-12-29] MEDS: LINZESS 290 MCG PO (08:10)
[2023-12-29] MEDS: THERAGRAN 1 TABLET PO (08:10)
[2023-12-29] MEDS: TYLENOL 650 MG PO ×3 (08:10→16:25)
[2023-12-29] MEDS: RESTASIS 0.05% OPHTHALMIC EMULSION 1 DROPS BOTH EYES ×2 (08:10→20:31)
[2023-12-29] MEDS: SENOKOT 17.2 MG PO (08:10)
[2023-12-29] MEDS: COLACE 100 MG PO (08:11)
[2023-12-29] MEDS: FLEXERIL 5 MG PO ×3 (08:11→22:52)
[2023-12-29] MEDS: NEURONTIN 300 MG PO ×3 (08:11→22:51)
[2023-12-29] MEDS: GLUCOTROL 5 MG PO (08:11)
[2023-12-29] MEDS: PROTONIX 40 MG PO (08:11)
[2023-12-29] MEDS: MEDROL 12 MG PO (08:12)
[2023-12-29] MEDS: NON-FORMULARY ITEM 30 MG PO ×3 (08:14→22:50)
[2023-12-29] MEDS: NON-FORMULARY ITEM 1 UNIT PO ×3 (08:14→22:50)
[2023-12-29] MEDS: NON-FORMULARY ITEM 50 MG PO (08:15)
[2023-12-29] MEDS: NON-FORMULARY ITEM 10 MG PO ×3 (08:16→22:50)
[2023-12-29] MEDS: IMDUR (EXTENDED RELEASE) 30 MG PO (08:22)
--- NOTE | 2023-12-29 10:34 | W.PN.HOSP.TC ---
Today's Communication/Plan
-
see A/P
Assessment / Plan
Assessment / Plan
CT THORACIC SPINE:
1. SEVERE CHRONIC FRACTURES of the T8 and T9 vertebral bodies with complete vertebral body collapse, severe retropulsion of the posterior cortex into the anterior epidural space, and a severe kyphosis in the mid-lower thoracic spine which appears
unchanged.
2. MODERATE SPINAL CORD COMPRESSION and CENTRAL CANAL STENOSIS at the T8-T9 levels which appears unchanged.
3. Severe bilateral neural foraminal narrowing at T8/T9.
4. Mild multilevel discogenic degenerative disease at the other thoracic levels.
5. Severe discogenic degenerative disease in the lower cervical spine with a disc-osteophyte complex at C5/C6 causing mild spinal cord compression, mild central canal stenosis, and severe right neural foraminal narrowing.
CT LUMBAR SPINE:
1. CHRONIC VERTEBRAL BODY ENDPLATE FRACTURES of L1 and L2 which have been treated with vertebroplasty. Moderate loss of vertebral body height at L1 with retropulsion of the posterior cortex into the anterior epidural space causing MODERATE CENTRAL
CANAL STENOSIS which appears unchanged.
2. MODERATE to SEVERE CENTRAL CANAL STENOSIS at L2/L3 secondary to a large diffuse disc bulge and bilateral facet joint arthrosis. Moderate to severe left neural foraminal narrowing at L2/L3.
3. Previous laminectomies and bilateral posterior instrumentation at L3/L4 and L4/L5.
4. 8.2 mm grade 2 anterolisthesis of L4 on L5 which appears unchanged.'
A/P:
# Acute LBP/sacral area pain, with acute gait dysfunction, weakness and fall
# History of L3-L5 spinal fusion surgery
Currently on Medrol dose pack by PCP
No bowel or bladder incontinence, no saddle anaesthesia
CT imaging report as above
Pain control
Neuro surgery on board
Check MRI lumbar and pelvis WITHOUT contrast
Anesthesiology for sedation and pain management during MRI
PT OT recc SNF
Noted CRP negative which rules out inflammatory process
Other chronic medical conditions
# CAD with stents, continue home high-intensity statin, isosorbide mononitrate, metoprolol succinate, and potassium chloride
# GERD on Nexium
# Hypercholesterolemia, continue home statin
# NIDDM on Glipizide, continue Insulin Sliding Scale
# Fibromyalgia, Sjogren's syndrome
# IBS, continue Linzess
# h/o PE, completed course of DOAC for 1 year, was seeing Heme for this
# Urinary retention,
# giant cell arteritis
# Hypothyroid s/p Thyroidectomy on LT4
DVT Px: LMWH
Code: Full Code
Anticipated Discharge: 24 - 48 hours
Subjective/Interval History
-
Date of Service: December 29, 2023
Objective Data
-
Vital Signs:
Vital Signs
Temp Pulse Resp BP Pulse Ox
36.6 C 67 18 152/83 97
12/29/23 07:25 12/29/23 07:25 12/29/23 07:25 12/29/23 07:25 12/29/23 07:25
I&O
12/28/23 12/29/23 12/30/23
06:59 06:59 06:59
Intake Total 960 / 960 1080 / 1320 240 / 240
Balance 960 / 960 1080 / 1320 240 / 240
Review of Systems
-
Musculoskeletal: Reports Other (lower back pain)
Physical Exam
-
General: Well Developed, Well Nourished, No Apparent Distress, Comfortable and Conversant; Negative Respiratory Distress
HEENT: Normocephalic, Atraumatic, Nose Appears Normal and Ears Appear Normal; Negative Oxygen
Respiratory: Clear to Auscultation and Non Labored Respirations; Negative Accessory Resp Muscle Use
Cardiac: Regular Rhythm and S1/S2
GI: Soft, Nontender, Nondistended and Normal Bowel Sounds
Skin: Warm and Dry
Neuro: Awake, Alert and Oriented
Psych: Calm and Intact Judgement/Insight
Data Reviewed
-
CT Scan: Report Reviewed by me
Labs: Labs Reviewed by me
[2023-12-29 12:05] LABS: Glucose - Point of Care 115 mg/dl (70-99)
--- NOTE | 2023-12-29 15:55 | PN.NS ---
Subjective
-
Patient seen and examined. Continues to report ongoing back pain, and bilateral lower extremity pain. Reports weakness in bilateral lower extremities. MRI completed.
Physical Exam
-
Exam:
Awake, alert, no apparent distress.
Cranial nerves II through XII are grossly intact.
Motor: 5/5 strength bilaterally in upper extremities and lower extremities.
Kyphotic curvature.
Sensation to light touch intact bilaterally in upper EXTR lower EXTR
Tenderness to palpation over bilateral sacral area. Healed lumbar incision noted over L3-L5.
Head is normocephalic, atraumatic.
Neck is supple.
Breathing nonlabored
Abdomen is not distended
Cardiac: Regular rate
Extremities are warm
MRI of the lumbar spine performed on 12/29/2023 was reviewed. No obvious evidence of STIR signal hyperintensity in the lumbar spine or sacral spine to suggest fracture. Patient has evidence of L3-L5 pedicle based fusion. At L2-L3 there appears to
be significant new spinal stenosis with posterior/dorsal compression due to soft tissue lesion noted on the left more so than the right which causes near complete obliteration of the thecal sac at this level. Differential diagnosis is synovial cyst
versus disc herniation versus less likely infectious process.
Problems
-
Problem Status Onset Code
Falls R29.6
Ambulatory dysfunction R26.2
Back pain M54.9
Assessment / Plan
-
This is an 83-year-old female with a history of L3-L5 spinal fusion surgery, now with sudden onset of back pain. MRI of the lumbar spine reveals severe spinal stenosis at L2-L3 due to dorsal compression from soft tissue lesion.
Discussion was held with the patient at bedside regarding management options. At the present time, given her symptomatology, she wishes to proceed with surgical decompression. This would be by means of L2-L3 left hemilaminectomy.
Patient will require medical/cardiac clearance.
Will plan for surgery later this week.
Continue with pain control.
Today's Communication
-
Discussed with patient, and hospital medicine.
--- NOTE | 2023-12-29 16:25 | CM ---
Reviewed chart. PT indicating SNF. Will meet with patient, family to discuss options.
Plan: Case management will continue to follow and assist with discharge planning. SNF when stable.
--- NOTE | 2023-12-29 16:42 | CON.CAR ---
Addendum entered and electronically signed by Jose Abarca MD 12/30/23 11:49:
I saw and examined the patient.
The resident's note was reviewed and I agree with the note.
Comment: See my comments below.
Original Note:
Documented by User: Tristin Moncada MD, Resident 12/30/23 09:21
Consultation
Consultation Request
Date/Time Consultation Requested: 12/29/2023
Date/Time Consultation Performed: 12/29/2023
Requesting Provider: Mary Ellen Everett
Performing Provider: Dr Abarca
Reason for Consultation: Surgical Clearance
Medical History
-
History of Present Illness:
This is an 83-year-old female with past medical history of CAD s/p stent 2008, hypercholesterolemia, PE, DVT, history of L3-L5 spinal fusion surgery, who is currently admitted for ongoing back pain that started approximately 1 week ago. Patient
reports difficulty standing due to pain and lower extremity weakness. Examination with the CT thoracic spine shows severe chronic fractures of the T8 and T9 vertebral bodies with complete vertebral body collapse. MRI of the lumbar spine shows
significant new spinal stenosis at the L2-L3 region. Patient is scheduled for surgical decompression(L2-L3 left hemilaminectomy) with Dr Posada. We are asked evaluate patient for cardiac clearance prior to surgical procedure
Past Medical History
Past Medical History: Other (CAD, GERD, hypercholesterolemia, fibromyalgia, Sjogren's syndrome, IBS, PE, DVT, spinal fusion)
Social History
Tobacco: Non-Smoker
Alcohol: None
Drug: None
Personal:
Living: With Family
Family History
Family History: Reviewed & Not Pertinent
Allergies / Home Medications
Allergy/AdvReac Type Severity Reaction Status Date / Time
Iodinated Contrast Media Allergy Shortness Verified 11/17/22 10:04
[Iodinated Contrast Media - of Breath,
Oral and] rash
levofloxacin [From Levaquin] Allergy Shortness Verified 11/17/22 10:04
of Breath,
Rash
nabumetone [From Relafen] Allergy STOMACH Verified 11/17/22 10:04
PROBLEMS,
SOB
naproxen [Naproxen] Allergy STOMACH Verified 11/17/22 10:04
PROBLEMS,
SOB
nifedipine [From Procardia] Allergy VOMITED X Verified 11/17/22 10:04
24 HRS, SOB
Penicillins Allergy Rash/COULD Verified 11/17/22 10:04
NOT BREATHE
sulfamethoxazole Allergy STOMACH Verified 11/17/22 10:04
[Sulfamethoxazole] PROBLEMS,
SOB
vancomycin [Vancomycin] Allergy TROUBLE Verified 11/17/22 10:04
BREATHING
�Medication �Instructions �Recorded �Confirmed �Type
cevimeline 30 mg capsule (Evoxac) 30 mg PO TID dry mouth 08/10/12 12/26/23 History
cyclosporine 0.05 % eye drops in a 1 drp BOTH EYES BID Eye condition 08/10/12 12/26/23 History
dropperette (Restasis)
gabapentin 300 mg capsule 300 mg PO TID Neurological 08/10/12 12/26/23 History
Condition
atorvastatin 20 mg tablet 40 mg PO HS High cholesterol 06/27/16 12/26/23 History
cholecalciferol (vitamin D3) 50 2,000 units PO QPM Supplement 01/15/17 12/26/23 History
mcg (2,000 unit) tablet
metoprolol succinate 25 mg 25 mg PO HS Heart disease/condition 01/15/17 12/26/23 History
tablet,extended release 24 hr
glipizide 5 mg tablet 5 mg PO DAILY Diabetes 02/02/17 12/26/23 History
Domperidone 10 mg PO TID Gastrointestinal issue 11/20/18 12/26/23 History
allopurinol 100 mg tablet 100 mg PO DAILY Gout 11/20/18 12/26/23 History
potassium chloride 10 mEq 10 meq PO TID Electrolyte Repletion 11/20/18 12/26/23 History
capsule,extended release
isosorbide mononitrate 30 mg 30 mg PO DAILY@0700 Heart 06/29/20 12/26/23 History
tablet,extended release 24 hr disease/condition
ezetimibe 10 mg tablet (Zetia) 10 mg PO HS High cholesterol 07/01/20 12/26/23 History
multivit with minerals-iron 18 1 ea PO DAILY Supplement 07/01/20 12/26/23 History
mg-folic ac 400 mcg-vit K 25 mcg
tablet (Adults Multivitamin)
levothyroxine 125 mcg tablet 125 mcg PO DAILY Thyroid 07/26/23 12/26/23 History
(Synthroid)
mirabegron 50 mg tablet,extended 50 mg PO DAILY Urinary Issue 07/26/23 12/26/23 History
release 24 hr (Myrbetriq)
oxycodone 10 mg tablet 10 mg PO Q5H Pain 07/26/23 12/26/23 History
polyethylene glycol 3350 17 gram 17 g PO DAILYPRN PRN constipation 07/26/23 12/26/23 History
oral powder packet (Miralax)
therapeutic multivitamin 1 tab PO DAILY Supplement 07/26/23 12/26/23 History
Tylenol 1,000 mg PO TID PRN pain 12/26/23 12/26/23 History
calcium carbonate 500 mg PO DAILY Supplement 12/26/23 12/26/23 History
esomeprazole magnesium 40 mg 40 mg PO DAILY Gastrointestinal 12/26/23 12/26/23 History
capsule,delayed release (Nexium) Issue
linaclotide 290 mcg capsule 290 mcg PO DAILY Constipation 12/26/23 12/26/23 History
(Linzess)
zolpidem 6.25 mg tablet,extended 6.25 mg PO HS Sleep 12/26/23 12/26/23 History
release,multiphase (Ambien CR)
Review of Systems
-
All other systems: Negative unless noted
Physical Exam
Vital Signs
Temp Pulse Resp BP Pulse Ox
97.6 F 80 18 144/74 98
12/29/23 15:42 12/29/23 15:42 12/29/23 15:42 12/29/23 15:42 12/29/23 15:42
Lab Results
12/28/23 06:38
12/28/23 06:38
Physical Exam
General: No Apparent Distress
Respiratory: Clear; Negative Crackles
Cardiac: S1/S2 and Regular Rhythm; Negative Murmur or Peripheral Edema
Musculoskeletal: No Edema
Skin: Warm and Dry
Neuro: Awake, Alert, Oriented and AO x 3
Psych: Calm
Impression / Plan
-
Impression/Plan
Estimated cardiac risk 2%. Although higher serious complication rate 13.8% and discharge to nursing facility 68.7% all based on NSQIP surgical risk calculator.
Patient last had cath in 2014 with no evidence of Obstructive CAD. Patient currently with NO symptomatic evidence of CHF, Arrhythmia, Heart failure.
METS score less than 4.
At this time, no need to perform any additional cardiac testing.

Documented by User: Jose Abarca MD 12/30/23 11:45
Consultation
Consultation Request
Reason for Consultation: Preoperative cardiovascular risk assessment
Medical History
-
Chief Complaint: Back pain and leg weakness. Known remote LAD stent.
History of Present Illness:
This is an 83-year-old female with past medical history of CAD s/p stent 2008, hypercholesterolemia, PE, DVT, history of L3-L5 spinal fusion surgery, who is currently admitted for ongoing back pain that started approximately 1 week ago. Patient
reports difficulty standing due to pain and lower extremity weakness. Examination with the CT thoracic spine shows severe chronic fractures of the T8 and T9 vertebral bodies with complete vertebral body collapse. MRI of the lumbar spine shows
significant new spinal stenosis at the L2-L3 region. Patient is scheduled for surgical decompression(L2-L3 left hemilaminectomy) with Dr Posada. We are asked evaluate patient for cardiac clearance prior to surgical procedure.
From the cardiac perspective she had significant CEDEÑO more than chest pain that led to pLAD stent in 2008. The symptoms resolved and have not returned. Her last cath in 2014 showed no obstructive CAD. Activity is limited to less than 4 METS mostly
from back pain. No syncope/palpitations/PND/orthopnea. No angina.
Past Medical History
Past Medical History: Other (CAD, GERD, hypercholesterolemia, fibromyalgia, Sjogren's syndrome, IBS, PE, DVT, spinal fusion (twice))
Review of Systems
-
All other systems: Negative unless noted (and as noted above)
Impression / Plan
-
Impression/Suggest:
Preop cardiac risk assessment: Elevated but not prohibitive. Estimated cardiac risk 2%. Although higher serious complication rate 13.8% and discharge to nursing facility 68.7% based on NSQIP surgical risk calculator.
- Patient last had cath in 2014 with no evidence of Obstructive CAD.
- Patient currently with NO symptomatic evidence of CHF, Arrhythmia, Heart failure.
- Activity level less than 4 METS s
We do not favor additional cardiac testing or treatment in attempts to lower cardiac risk given the lack of ACS, heart failure, or arrhythmias
CAD, stable, continue aggressive risk factor modification, resume ASA if OK with surgery
Bifascicular block, RBBB/LAFB
DM, type II
Mixed hyperlipidemia, continue statin
Spine disease with spinal stenosis
Data Reviewed
-
Radiology: Report Reviewed by me (MRI: Lumbar spine disease)
Medical Tests (Nuc Med, Echo etc): Image Personally Visualized and interpreted (EKG SR, RBBB/LAFB no ST-T changees, possible septal infarct. 2 cath reports reviewed. See above)
[2023-12-29 16:54] LABS: Glucose - Point of Care 197 mg/dl (70-99)
[2023-12-29] MEDS: LOVENOX 40 MG SC (17:12)
[2023-12-29] MEDS: VITAMIN D3 (cholecalciferol) 50 MCG PO (17:12)
--- NOTE | 2023-12-29 17:22 | W.PN.UPDATE ---
Update Note
Progress Note Update
Cardiology note to be dictated
Moderate cardiac risk at 2% but higher serious complication rate, , discharge to residential based on NSQIP estimated risk.
No recurrent cardiac symptoms since remote LAD stent. Last cath 2014 with no obstuctive CAD.
Activity level less than 4 METS
No role for stress testing in my opinion given the lack of an ACS, heart failure, or unstable arrhythmias and the desire not to delay surgery.
Proceed at elevated risk.
--- NOTE | 2023-12-29 19:44 | W.PN.UPDATE ---
Update Note
Progress Note Update
Advised by hospital medicine, Dr. Everett that patient's and daughter wished to discuss patient's condition and propsed surgery.
I called daughter who then conferenced in .
Extensive discussion held with both of them regarding patient's symptomatology, MRI findings, and management options which are:
1. Pain control, PT, and completion fo course of steroids.
2. JOSH
3. Decompression via surgery.
I discussed risks and benefits of all options.
Patient's and daughter report that they feel patient is not capable of making decision re: surgery on her own at present time.
They report that would be decision maker in whether patient would proceed with surgery vs not.
They express desire to potentially pursue JOSH, and I did explain to them that patient explicity expressed that given ESIs have not worked in past, that she did not wish to pursue this.
I have explained that patient would require cardiac evaluation and clearance prior to proceeding with surgery.
They wish to have cardiology input/evaluation before determining whether will make decision re: surgery or JOSH.
I have advised them to maintain communication with hospitalist re: decision.
Discussed with Dr. Everett.
[2023-12-29] MEDS: SENOKOT PO (20:31)
[2023-12-29] MEDS: COLACE PO (20:31)
[2023-12-29] MEDS: LIPITOR 40 MG PO (21:05)
[2023-12-29] MEDS: ZETIA 10 MG PO (21:05)
[2023-12-29 21:57] LABS: Glucose - Point of Care 174 mg/dl (70-99)
[2023-12-29] MEDS: NON-FORMULARY ITEM 6.25 MG PO (22:51)
[2023-12-29] MEDS: TOPROL XL 25 MG PO (22:52)
[2023-12-30] MEDS: TYLENOL PO (00:07)
[2023-12-30] MEDS: ROXICODONE 10 MG PO ×5 (02:06→21:22)
[2023-12-30] MEDS: TYLENOL 650 MG PO ×5 (02:06→20:45)
[2023-12-30] MEDS: LINZESS 290 MCG PO (06:27)
[2023-12-30] MEDS: SYNTHROID 125 MCG PO (06:27)
[2023-12-30] MEDS: IMDUR (EXTENDED RELEASE) 30 MG PO (06:27)
[2023-12-30 07:22] VITALS: BP 137/89
[2023-12-30 07:29] LABS: Glucose - Point of Care 163 mg/dl (70-99)
[2023-12-30] MEDS: THERAGRAN 1 TABLET PO (09:08)
[2023-12-30] MEDS: NEURONTIN 300 MG PO ×3 (09:08→22:29)
[2023-12-30] MEDS: OSCAL CAL 500 500 MG PO (09:08)
[2023-12-30] MEDS: FLEXERIL 5 MG PO ×3 (09:08→22:29)
[2023-12-30] MEDS: GLUCOTROL 5 MG PO (09:08)
[2023-12-30] MEDS: ZYLOPRIM 100 MG PO (09:08)
[2023-12-30] MEDS: RESTASIS 0.05% OPHTHALMIC EMULSION 1 DROPS BOTH EYES ×2 (09:08→20:44)
[2023-12-30] MEDS: PROTONIX 40 MG PO (09:14)
[2023-12-30] MEDS: SENOKOT PO ×2 (09:14→20:43)
[2023-12-30] MEDS: NON-FORMULARY ITEM 10 MG PO ×3 (09:15→22:27)
[2023-12-30] MEDS: NON-FORMULARY ITEM 30 MG PO ×3 (09:16→22:27)
[2023-12-30] MEDS: NON-FORMULARY ITEM 50 MG PO (09:16)
[2023-12-30] MEDS: NON-FORMULARY ITEM 1 UNIT PO ×3 (09:16→22:29)
[2023-12-30] MEDS: COLACE PO ×2 (09:19→20:43)
[2023-12-30] MEDS: MEDROL 8 MG PO (09:20)
--- NOTE | 2023-12-30 09:22 | W.PN.CD ---
Addendum entered and electronically signed by Jose Abarca MD 12/30/23 11:53:
I saw and examined the patient.
The resident's note was reviewed and I agree with the note.
Comment: Add back ASA if surgery will not be performed.
Original Note:
Documented by User: Tristin Moncada MD, Resident 12/30/23 11:51
Today's Communication / Plan
-
proceed with surgery
Impression / Plan
-
Impression:
Preop cardiac risk assessment: Elevated but not prohibitive. Estimated cardiac risk 2%. Although higher serious complication rate 13.8% and discharge to nursing facility 68.7% based on NSQIP surgical risk calculator.
- Patient last had cath in 2014 with no evidence of Obstructive CAD.
- Patient currently with NO symptomatic evidence of CHF, Arrhythmia, Heart failure.
- Activity level less than 4 METS s
We do not favor additional cardiac testing or treatment in attempts to lower cardiac risk given the lack of ACS, heart failure, or arrhythmias
CAD, stable, continue aggressive risk factor modification, resume ASA if OK with surgery
DM, type II
Mixed hyperlipidemia, continue statin
Spine disease with spinal stenosis
Subjective:
No CP/dyspnea/palps
Physical Exam
Vital Signs/Labs
Vital Signs
Temp Pulse Resp BP Pulse Ox
97.9 F 76 17 137/89 94
12/30/23 07:22 12/30/23 07:22 12/30/23 07:22 12/30/23 07:22 12/30/23 07:22
12/28/23 06:38
12/28/23 06:38
Magnesium 2.2 mg/dl (1.6-2.3) 12/28/23 06:38
Physical Exam
Constitutional: No acute distress
Cardiovascular: Rhythm & rate is regular and Pedal edema is absent
Respiratory: Respiratory effort normal
Neuro/Psych: Alert, Oriented and AO x 3
Data Reviewed
-
Date of Service: December 30, 2023

Documented by User: Jose Abarca MD 12/30/23 11:48
Today's Communication / Plan
-
Add back ASA if surgery will not be pursued
--- NOTE | 2023-12-30 10:01 | W.PN.HOSP.TC ---
Today's Communication/Plan
-
see AP
Assessment / Plan
Assessment / Plan
CT THORACIC SPINE:
1. SEVERE CHRONIC FRACTURES of the T8 and T9 vertebral bodies with complete vertebral body collapse, severe retropulsion of the posterior cortex into the anterior epidural space, and a severe kyphosis in the mid-lower thoracic spine which appears
unchanged.
2. MODERATE SPINAL CORD COMPRESSION and CENTRAL CANAL STENOSIS at the T8-T9 levels which appears unchanged.
3. Severe bilateral neural foraminal narrowing at T8/T9.
4. Mild multilevel discogenic degenerative disease at the other thoracic levels.
5. Severe discogenic degenerative disease in the lower cervical spine with a disc-osteophyte complex at C5/C6 causing mild spinal cord compression, mild central canal stenosis, and severe right neural foraminal narrowing.
CT LUMBAR SPINE:
1. CHRONIC VERTEBRAL BODY ENDPLATE FRACTURES of L1 and L2 which have been treated with vertebroplasty. Moderate loss of vertebral body height at L1 with retropulsion of the posterior cortex into the anterior epidural space causing MODERATE CENTRAL
CANAL STENOSIS which appears unchanged.
2. MODERATE to SEVERE CENTRAL CANAL STENOSIS at L2/L3 secondary to a large diffuse disc bulge and bilateral facet joint arthrosis. Moderate to severe left neural foraminal narrowing at L2/L3.
3. Previous laminectomies and bilateral posterior instrumentation at L3/L4 and L4/L5.
4. 8.2 mm grade 2 anterolisthesis of L4 on L5 which appears unchanged.'
MRI lumbar/sacral spine:
Postoperative changes of L3-S1 posterior decompression with L3-L5 posterior spinal fusion. There is unchanged grade 1 anterolisthesis of L4 on L5.
Multilevel degenerative disc disease and facet arthropathy. This is most pronounced at L2-L3. There is severe canal stenosis and severe bilateral neuroforaminal narrowing at this level with T2 intermediate signal, favoring large left subarticular
disc extrusion, and bilateral facet arthropathy. Individual levels as above.
Chronic L1 and L2 compression fractures with post changes of kyphoplasty. There is retropulsion at L1 with associated mild/moderate canal stenosis at the superior L1 level, similar to prior.
A/P:
# Acute LBP/sacral area pain, with acute gait dysfunction, weakness and fall
# History of L3-L5 spinal fusion surgery
Currently on Medrol dose pack by PCP
No bowel or bladder incontinence, no saddle anaesthesia
CT imaging report as above
MRI lumbar and pelvis noted severe canal stenosis. Report above.
Neuro surgery recc: 1. Pain control, PT, and completion fo course of steroids. 2. JOSH. 3. Decompression via surgery.
Family leaning toward JOSH over surgery.
Either way, Cardiology already on board if surgery is still planned
Of note, CRP negative which rules out inflammatory process
Lengthy discussion with pt, will plan for EPI first and if not relieving her pain, would consider surgery (need to call neurosurgeon Dr Swetha heath)
Other chronic medical conditions
# CAD with stents, continue home high-intensity statin, isosorbide mononitrate, metoprolol succinate, and potassium chloride
# GERD on Nexium
# Hypercholesterolemia, continue home statin
# NIDDM on Glipizide, continue Insulin Sliding Scale
# Fibromyalgia, Sjogren's syndrome
# IBS, continue Linzess
# h/o PE, completed course of DOAC for 1 year, was seeing Heme for this
# Urinary retention,
# giant cell arteritis
# Hypothyroid s/p Thyroidectomy on LT4
DVT Px: LMWH
Code: Full Code
DW on the phone
DW neurosurgeon
total time spent 51 min
Anticipated Discharge: 24 - 48 hours
Subjective/Interval History
-
Date of Service: December 30, 2023
Objective Data
-
Vital Signs:
Vital Signs
Temp Pulse Resp BP Pulse Ox
36.6 C 76 17 137/89 94
12/30/23 07:22 12/30/23 07:22 12/30/23 07:22 12/30/23 07:22 12/30/23 07:22
I&O
12/29/23 12/30/23 12/31/23
06:59 06:59 06:59
Intake Total 1080 / 1320 960 / 960
Balance 1080 / 1320 960 / 960
Review of Systems
-
Musculoskeletal: Reports Other (lower back pain)
Physical Exam
-
General: Well Developed, Well Nourished, No Apparent Distress, Comfortable and Conversant; Negative Respiratory Distress
HEENT: Normocephalic, Atraumatic, Nose Appears Normal and Ears Appear Normal; Negative Oxygen
Respiratory: Clear to Auscultation and Non Labored Respirations; Negative Accessory Resp Muscle Use
Cardiac: Regular Rhythm and S1/S2
GI: Soft, Nontender, Nondistended and Normal Bowel Sounds
Skin: Warm and Dry
Neuro: Awake, Alert and Oriented
Psych: Calm and Intact Judgement/Insight
Data Reviewed
-
CT Scan: Report Reviewed by me
MRI: Report Reviewed by me, Discussed with Patient and Discussed with Family
Labs: Labs Reviewed by me
[2023-12-30 11:54] LABS: Glucose - Point of Care 271 mg/dl (70-99)
[2023-12-30 15:25] VITALS: BP 132/82
[2023-12-30 16:31] LABS: Glucose - Point of Care 164 mg/dl (70-99)
[2023-12-30] MEDS: VITAMIN D3 (cholecalciferol) 50 MCG PO (17:25)
[2023-12-30] MEDS: LOVENOX 40 MG SC (17:25)
--- NOTE | 2023-12-30 21:12 | W.PN.UPDATE ---
Update Note
Progress Note Update
Informed by Dr. Everett that patient's wishes to proceed with JOSH and hold off on surgery.
Appreciate Cardiology evaluation.
Will sign off.
[2023-12-30 21:28] LABS: Glucose - Point of Care 259 mg/dl (70-99)
[2023-12-30] MEDS: LIPITOR 40 MG PO (22:29)
[2023-12-30] MEDS: TOPROL XL 25 MG PO (22:30)
[2023-12-30] MEDS: ZETIA 10 MG PO (22:30)
[2023-12-30] MEDS: NON-FORMULARY ITEM 6.25 MG PO (22:34)
[2023-12-30 22:49] VITALS: BP 142/78
[2023-12-31] MEDS: TYLENOL PO (00:49)
[2023-12-31] MEDS: ROXICODONE 10 MG PO ×5 (04:07→23:03)
[2023-12-31] MEDS: TYLENOL 650 MG PO ×5 (04:07→20:44)
[2023-12-31] MEDS: SYNTHROID 125 MCG PO (06:10)
[2023-12-31] MEDS: LINZESS 290 MCG PO (06:10)
[2023-12-31 07:00] VITALS: BP 131/71
[2023-12-31 07:30] LABS: Glucose - Point of Care 127 mg/dl (70-99)
[2023-12-31] MEDS: NON-FORMULARY ITEM 30 MG PO ×3 (07:33→21:57)
[2023-12-31] MEDS: FLEXERIL 5 MG PO ×3 (07:35→23:03)
[2023-12-31] MEDS: THERAGRAN 1 TABLET PO (07:35)
[2023-12-31] MEDS: GLUCOTROL 5 MG PO (07:35)
[2023-12-31] MEDS: RESTASIS 0.05% OPHTHALMIC EMULSION 1 DROPS BOTH EYES ×2 (07:35→20:44)
[2023-12-31] MEDS: ZYLOPRIM 100 MG PO (07:35)
[2023-12-31] MEDS: PROTONIX 40 MG PO (07:35)
[2023-12-31] MEDS: OSCAL CAL 500 500 MG PO (07:35)
[2023-12-31] MEDS: IMDUR (EXTENDED RELEASE) 30 MG PO (07:35)
[2023-12-31] MEDS: NEURONTIN 300 MG PO ×3 (07:35→21:56)
[2023-12-31] MEDS: COLACE PO ×2 (07:36→20:40)
[2023-12-31] MEDS: SENOKOT PO ×2 (07:36→20:40)
[2023-12-31] MEDS: MEDROL 4 MG PO (07:47)
[2023-12-31] MEDS: NON-FORMULARY ITEM 10 MG PO ×3 (07:47→21:57)
[2023-12-31] MEDS: NON-FORMULARY ITEM 1 UNIT PO ×3 (07:48→21:58)
[2023-12-31] MEDS: NON-FORMULARY ITEM 50 MG PO (07:48)
--- NOTE | 2023-12-31 09:19 | W.PN.HOSP.TC ---
Today's Communication/Plan
-
see A/P
Assessment / Plan
Assessment / Plan
CT THORACIC SPINE:
1. SEVERE CHRONIC FRACTURES of the T8 and T9 vertebral bodies with complete vertebral body collapse, severe retropulsion of the posterior cortex into the anterior epidural space, and a severe kyphosis in the mid-lower thoracic spine which appears
unchanged.
2. MODERATE SPINAL CORD COMPRESSION and CENTRAL CANAL STENOSIS at the T8-T9 levels which appears unchanged.
3. Severe bilateral neural foraminal narrowing at T8/T9.
4. Mild multilevel discogenic degenerative disease at the other thoracic levels.
5. Severe discogenic degenerative disease in the lower cervical spine with a disc-osteophyte complex at C5/C6 causing mild spinal cord compression, mild central canal stenosis, and severe right neural foraminal narrowing.
CT LUMBAR SPINE:
1. CHRONIC VERTEBRAL BODY ENDPLATE FRACTURES of L1 and L2 which have been treated with vertebroplasty. Moderate loss of vertebral body height at L1 with retropulsion of the posterior cortex into the anterior epidural space causing MODERATE CENTRAL
CANAL STENOSIS which appears unchanged.
2. MODERATE to SEVERE CENTRAL CANAL STENOSIS at L2/L3 secondary to a large diffuse disc bulge and bilateral facet joint arthrosis. Moderate to severe left neural foraminal narrowing at L2/L3.
3. Previous laminectomies and bilateral posterior instrumentation at L3/L4 and L4/L5.
4. 8.2 mm grade 2 anterolisthesis of L4 on L5 which appears unchanged.'
MRI lumbar/sacral spine:
Postoperative changes of L3-S1 posterior decompression with L3-L5 posterior spinal fusion. There is unchanged grade 1 anterolisthesis of L4 on L5.
Multilevel degenerative disc disease and facet arthropathy. This is most pronounced at L2-L3. There is severe canal stenosis and severe bilateral neuroforaminal narrowing at this level with T2 intermediate signal, favoring large left subarticular
disc extrusion, and bilateral facet arthropathy. Individual levels as above.
Chronic L1 and L2 compression fractures with post changes of kyphoplasty. There is retropulsion at L1 with associated mild/moderate canal stenosis at the superior L1 level, similar to prior.
A/P:
# Acute LBP/sacral area pain, with acute gait dysfunction, weakness and fall
# History of L3-L5 spinal fusion surgery
Currently on Medrol dose pack by PCP
No bowel or bladder incontinence, no saddle anaesthesia
CT imaging report as above
MRI lumbar and pelvis noted severe canal stenosis. Report above.
Neuro surgery recc: 1. Pain control, PT, and completion fo course of steroids. 2. JOSH. 3. Decompression via surgery.
Family leaning toward JOSH over surgery. Pt would still want to proceed with surgery if JOSH does not work (would need to call neurosurgeon Dr Swetha heath)
IR consulted for JOSH, timing TBD
Of note, CRP negative which rules out inflammatory process
Other chronic medical conditions
# CAD with stents, continue home high-intensity statin, isosorbide mononitrate, metoprolol succinate, and potassium chloride
# GERD on Nexium
# Hypercholesterolemia, continue home statin
# NIDDM on Glipizide, continue Insulin Sliding Scale
# Fibromyalgia, Sjogren's syndrome
# IBS, continue Linzess
# h/o PE, completed course of DOAC for 1 year, was seeing Heme for this
# Urinary retention,
# giant cell arteritis
# Hypothyroid s/p Thyroidectomy on LT4
DVT Px: LMWH
Code: Full Code
DW RN
Anticipated Discharge: > 48 hours
Subjective/Interval History
-
Date of Service: December 31, 2023
Objective Data
-
Vital Signs:
Vital Signs
Temp Pulse Resp BP Pulse Ox
36.8 C 63 17 131/71 94
12/31/23 07:00 12/31/23 07:00 12/31/23 07:00 12/31/23 07:00 12/31/23 07:00
I&O
12/30/23 12/31/23 01/01/24
06:59 06:59 06:59
Intake Total 960 / 960 780 / 780
Balance 960 / 960 780 / 780
Review of Systems
-
Musculoskeletal: Reports Other (lower back pain)
Physical Exam
-
General: Well Developed, Well Nourished, No Apparent Distress, Comfortable and Conversant; Negative Respiratory Distress
HEENT: Normocephalic, Atraumatic, Nose Appears Normal and Ears Appear Normal; Negative Oxygen
Respiratory: Clear to Auscultation and Non Labored Respirations; Negative Accessory Resp Muscle Use
Cardiac: Regular Rhythm and S1/S2
GI: Soft, Nontender, Nondistended and Normal Bowel Sounds
Skin: Warm and Dry
Neuro: Awake, Alert and Oriented
Psych: Calm and Intact Judgement/Insight (somewhat)
Data Reviewed
-
CT Scan: Report Reviewed by me
MRI: Report Reviewed by me, Discussed with Patient and Discussed with Family
Labs: Labs Reviewed by me
--- NOTE | 2023-12-31 09:27 | W.PN.CD ---
Today's Communication / Plan
-
She tells me that she stopped ASA with the OK/knowledge of her emergency medical dispatcher because of bruising and minor bleeding (no GI bleed, no transfusion).
I asked her to add ASA 81 mg every other day or at least MoWeFr to her medical regimen
Continue atorvastatin
Cardiology will sign off
Impression / Plan
-
Preop cardiac risk assessment: Elevated but not prohibitive. Estimated cardiac risk 2%. Although higher serious complication rate 13.8% and discharge to nursing facility 68.7% based on [facility] surgical risk calculator.
- Patient last had cath in 2014 with no evidence of obstructive CAD (patent pLAD stent and mild disease).
- Patient currently with N0 symptomatic evidence of CHF, Arrhythmia, Heart failure.
- Activity level less than 4 METS s
- We do not favor additional cardiac testing or treatment in attempts to lower cardiac risk given the lack of ACS, heart failure, or arrhythmias
- She is avoiding surgery for now
CAD, stable, continue aggressive risk factor modification,
- She has been off ASA, see comments in plan section
DM, type II
Mixed hyperlipidemia, continue statin
Spine disease with spinal stenosis
Subjective:
No CP/dyspnea/palps
Physical Exam
Vital Signs/Labs
Vital Signs
Temp Pulse Resp BP Pulse Ox
98.2 F 63 17 131/71 94
12/31/23 07:00 12/31/23 07:00 12/31/23 07:00 12/31/23 07:00 12/31/23 07:00
12/28/23 06:38
12/28/23 06:38
Magnesium 2.2 mg/dl (1.6-2.3) 12/28/23 06:38
Physical Exam
Constitutional: No acute distress
EENT: Anicteric
Cardiovascular: Rhythm & rate is regular and Pedal edema is absent
Respiratory: Respiratory effort normal and Lungs clear to auscul.
GI: Soft and Distention absent
Neuro/Psych: AO x 3
Data Reviewed
-
Date of Service: December 31, 2023
[2023-12-31 11:42] LABS: Glucose - Point of Care 176 mg/dl (70-99)
[2023-12-31 15:40] VITALS: BP 134/82
[2023-12-31 16:46] LABS: Glucose - Point of Care 264 mg/dl (70-99)
[2023-12-31] MEDS: LOVENOX 40 MG SC (17:40)
[2023-12-31] MEDS: VITAMIN D3 (cholecalciferol) 50 MCG PO (17:40)
[2023-12-31] MEDS: ROXICODONE 5 MG PO (20:44)
[2023-12-31] MEDS: ZETIA 10 MG PO (21:56)
[2023-12-31] MEDS: LIPITOR 40 MG PO (21:56)
[2023-12-31 23:05] VITALS: BP 128/84
[2023-12-31] MEDS: NON-FORMULARY ITEM 6.25 MG PO (23:06)
[2023-12-31] MEDS: TOPROL XL 25 MG PO (23:09)
[2024-01-01] MEDS: TYLENOL PO ×2 (00:26→14:31)
[2024-01-01] MEDS: ROXICODONE 10 MG PO ×4 (04:49→17:58)
[2024-01-01] MEDS: TYLENOL 650 MG PO ×4 (04:49→20:27)
[2024-01-01] MEDS: SYNTHROID 125 MCG PO (05:36)
[2024-01-01] MEDS: LINZESS 290 MCG PO (05:37)
[2024-01-01 06:47] LABS: INR 1.05; PT 13.7 Sec (11.4-14.6)
[2024-01-01 07:50] VITALS: BP 150/67
[2024-01-01 08:13] LABS: Glucose - Point of Care 119 mg/dl (70-99)
--- NOTE | 2024-01-01 09:06 | W.PN.HOSP.TC ---
Today's Communication/Plan
-
for JOSH today
Assessment / Plan
Assessment / Plan
CT THORACIC SPINE:
1. SEVERE CHRONIC FRACTURES of the T8 and T9 vertebral bodies with complete vertebral body collapse, severe retropulsion of the posterior cortex into the anterior epidural space, and a severe kyphosis in the mid-lower thoracic spine which appears
unchanged.
2. MODERATE SPINAL CORD COMPRESSION and CENTRAL CANAL STENOSIS at the T8-T9 levels which appears unchanged.
3. Severe bilateral neural foraminal narrowing at T8/T9.
4. Mild multilevel discogenic degenerative disease at the other thoracic levels.
5. Severe discogenic degenerative disease in the lower cervical spine with a disc-osteophyte complex at C5/C6 causing mild spinal cord compression, mild central canal stenosis, and severe right neural foraminal narrowing.
CT LUMBAR SPINE:
1. CHRONIC VERTEBRAL BODY ENDPLATE FRACTURES of L1 and L2 which have been treated with vertebroplasty. Moderate loss of vertebral body height at L1 with retropulsion of the posterior cortex into the anterior epidural space causing MODERATE CENTRAL
CANAL STENOSIS which appears unchanged.
2. MODERATE to SEVERE CENTRAL CANAL STENOSIS at L2/L3 secondary to a large diffuse disc bulge and bilateral facet joint arthrosis. Moderate to severe left neural foraminal narrowing at L2/L3.
3. Previous laminectomies and bilateral posterior instrumentation at L3/L4 and L4/L5.
4. 8.2 mm grade 2 anterolisthesis of L4 on L5 which appears unchanged.'
MRI lumbar/sacral spine:
Postoperative changes of L3-S1 posterior decompression with L3-L5 posterior spinal fusion. There is unchanged grade 1 anterolisthesis of L4 on L5.
Multilevel degenerative disc disease and facet arthropathy. This is most pronounced at L2-L3. There is severe canal stenosis and severe bilateral neuroforaminal narrowing at this level with T2 intermediate signal, favoring large left subarticular
disc extrusion, and bilateral facet arthropathy. Individual levels as above.
Chronic L1 and L2 compression fractures with post changes of kyphoplasty. There is retropulsion at L1 with associated mild/moderate canal stenosis at the superior L1 level, similar to prior.
A/P:
# Acute LBP/sacral area pain, with acute gait dysfunction, weakness and fall
# History of L3-L5 spinal fusion surgery
Currently on Medrol dose pack by PCP
No bowel or bladder incontinence, no saddle anaesthesia
CT imaging report as above
MRI lumbar and pelvis noted severe canal stenosis. Report above.
Neuro surgery recc: 1. Pain control, PT, and completion fo course of steroids. 2. JOSH. 3. Decompression via surgery.
Family leaning toward JOSH over surgery. Pt would still want to proceed with surgery if JOSH does not work (would need to call neurosurgeon Dr Swetha heath)
IR consulted for JOSH, planned for 12/31
Of note, CRP negative which rules out inflammatory process
Other chronic medical conditions
# CAD with stents, continue home high-intensity statin, isosorbide mononitrate, metoprolol succinate, and potassium chloride
# GERD on Nexium
# Hypercholesterolemia, continue home statin
# NIDDM on Glipizide, continue Insulin Sliding Scale
# Fibromyalgia, Sjogren's syndrome
# IBS, continue Linzess
# h/o PE, completed course of DOAC for 1 year, was seeing Heme for this
# Urinary retention,
# giant cell arteritis
# Hypothyroid s/p Thyroidectomy on LT4
DVT Px: LMWH
Code: Full Code
DW RN
Anticipated Discharge: 24 - 48 hours
Subjective/Interval History
-
Date of Service: January 01, 2024
Objective Data
-
Labs:
Laboratory Results
01/01/24
06:14
PT 13.7
INR 1.05
Vital Signs:
Vital Signs
Temp Pulse Resp BP Pulse Ox
36.8 C 61 16 150/67 97
01/01/24 07:50 01/01/24 07:50 01/01/24 07:50 01/01/24 07:50 01/01/24 07:50
I&O
12/31/23 01/01/24 01/02/24
06:59 06:59 06:59
Intake Total 780 / 780 1050 / 1050
Balance 780 / 780 1050 / 1050
Review of Systems
-
Musculoskeletal: Reports Other (lower back pain)
Physical Exam
-
General: Well Developed, Well Nourished, No Apparent Distress, Comfortable and Conversant; Negative Respiratory Distress
HEENT: Normocephalic, Atraumatic, Nose Appears Normal and Ears Appear Normal; Negative Oxygen
Respiratory: Clear to Auscultation and Non Labored Respirations; Negative Accessory Resp Muscle Use
Cardiac: Regular Rhythm and S1/S2
GI: Soft, Nontender, Nondistended and Normal Bowel Sounds
Skin: Warm and Dry
Neuro: Awake and Alert
Psych: Calm
Data Reviewed
-
CT Scan: Report Reviewed by me
MRI: Report Reviewed by me, Discussed with Patient and Discussed with Family
Labs: Labs Reviewed by me
[2024-01-01] MEDS: NON-FORMULARY ITEM 1 UNIT PO ×3 (09:17→22:43)
[2024-01-01] MEDS: NON-FORMULARY ITEM 50 MG PO (09:17)
[2024-01-01] MEDS: NON-FORMULARY ITEM 10 MG PO ×3 (09:18→22:46)
[2024-01-01] MEDS: RESTASIS 0.05% OPHTHALMIC EMULSION 1 DROPS BOTH EYES ×2 (09:18→20:27)
[2024-01-01] MEDS: NON-FORMULARY ITEM 30 MG PO ×3 (09:18→22:42)
[2024-01-01] MEDS: IMDUR (EXTENDED RELEASE) 30 MG PO (09:18)
[2024-01-01] MEDS: SENOKOT 17.2 MG PO ×2 (09:19→20:27)
[2024-01-01] MEDS: ZYLOPRIM 100 MG PO (09:19)
[2024-01-01] MEDS: PROTONIX 40 MG PO (09:19)
[2024-01-01] MEDS: COLACE 100 MG PO ×2 (09:19→20:27)
[2024-01-01] MEDS: OSCAL CAL 500 500 MG PO (09:19)
[2024-01-01] MEDS: GLUCOTROL 5 MG PO (09:19)
[2024-01-01] MEDS: FLEXERIL 5 MG PO ×3 (09:19→22:50)
[2024-01-01] MEDS: NEURONTIN 300 MG PO ×3 (09:19→22:45)
[2024-01-01] MEDS: THERAGRAN 1 TABLET PO (09:19)
[2024-01-01 11:45] LABS: Glucose - Point of Care 104 mg/dl (70-99)
--- NOTE | 2024-01-01 12:18 | CM ---
Reviewed chart, PT/OT, patient not participating per PT notes due to her level of pain. Spoke with patient who stated that she won't be able to participate in therapy until she receives her Epidural. Spoke with Caroline's RN, who stated that the
latest status she has heard is that the epidural is scheduled for today/this afternoon. Patient is updated.
Patient stated that she was advised if her epidural does not work she may need sx.
Patient stated that she is agreeable to going to the [facility] if she needs SNF. She stated that her spouse is there now.
Will make referral to [facility] just so admissions knows that she may need a bed.
Plan: Case management will continue to follow and assist with discharge planning. SNF vrs back to her apt at [facility].
[2024-01-01 13:00] VITALS: BP 126/74; BP_SYST 81
[2024-01-01 14:15] VITALS: BP 121/76
[2024-01-01 15:15] VITALS: BP 152/84
[2024-01-01 16:23] LABS: Glucose - Point of Care 98 mg/dl (70-99)
[2024-01-01] MEDS: LOVENOX 40 MG SC (17:58)
[2024-01-01] MEDS: VITAMIN D3 (cholecalciferol) 50 MCG PO (17:58)
[2024-01-01 21:25] LABS: Glucose - Point of Care 158 mg/dl (70-99)
[2024-01-01] MEDS: LIPITOR 40 MG PO (22:45)
[2024-01-01] MEDS: ZETIA 10 MG PO (22:45)
[2024-01-01] MEDS: TOPROL XL 25 MG PO (22:50)
[2024-01-01] MEDS: NON-FORMULARY ITEM 6.25 MG PO (22:55)
[2024-01-01 23:00] VITALS: BP 133/73
[2024-01-02] MEDS: ROXICODONE 10 MG PO ×5 (00:32→21:13)
[2024-01-02] MEDS: TYLENOL PO (00:35)
[2024-01-02] MEDS: LINZESS 290 MCG PO (05:06)
[2024-01-02] MEDS: SYNTHROID 125 MCG PO (05:06)
[2024-01-02] MEDS: TYLENOL 650 MG PO ×5 (05:06→21:20)
[2024-01-02 07:15] VITALS: BP 125/71
[2024-01-02 08:29] LABS: Glucose - Point of Care 133 mg/dl (70-99)
--- NOTE | 2024-01-02 09:47 | W.PN.HOSP.TC ---
Today's Communication/Plan
-
see A/P
Assessment / Plan
Assessment / Plan
CT THORACIC SPINE:
1. SEVERE CHRONIC FRACTURES of the T8 and T9 vertebral bodies with complete vertebral body collapse, severe retropulsion of the posterior cortex into the anterior epidural space, and a severe kyphosis in the mid-lower thoracic spine which appears
unchanged.
2. MODERATE SPINAL CORD COMPRESSION and CENTRAL CANAL STENOSIS at the T8-T9 levels which appears unchanged.
3. Severe bilateral neural foraminal narrowing at T8/T9.
4. Mild multilevel discogenic degenerative disease at the other thoracic levels.
5. Severe discogenic degenerative disease in the lower cervical spine with a disc-osteophyte complex at C5/C6 causing mild spinal cord compression, mild central canal stenosis, and severe right neural foraminal narrowing.
CT LUMBAR SPINE:
1. CHRONIC VERTEBRAL BODY ENDPLATE FRACTURES of L1 and L2 which have been treated with vertebroplasty. Moderate loss of vertebral body height at L1 with retropulsion of the posterior cortex into the anterior epidural space causing MODERATE CENTRAL
CANAL STENOSIS which appears unchanged.
2. MODERATE to SEVERE CENTRAL CANAL STENOSIS at L2/L3 secondary to a large diffuse disc bulge and bilateral facet joint arthrosis. Moderate to severe left neural foraminal narrowing at L2/L3.
3. Previous laminectomies and bilateral posterior instrumentation at L3/L4 and L4/L5.
4. 8.2 mm grade 2 anterolisthesis of L4 on L5 which appears unchanged.'
MRI lumbar/sacral spine:
Postoperative changes of L3-S1 posterior decompression with L3-L5 posterior spinal fusion. There is unchanged grade 1 anterolisthesis of L4 on L5.
Multilevel degenerative disc disease and facet arthropathy. This is most pronounced at L2-L3. There is severe canal stenosis and severe bilateral neuroforaminal narrowing at this level with T2 intermediate signal, favoring large left subarticular
disc extrusion, and bilateral facet arthropathy. Individual levels as above.
Chronic L1 and L2 compression fractures with post changes of kyphoplasty. There is retropulsion at L1 with associated mild/moderate canal stenosis at the superior L1 level, similar to prior.
A/P:
# Acute LBP/sacral area pain, with acute gait dysfunction, weakness and fall
# History of L3-L5 spinal fusion surgery
Currently on Medrol dose pack by PCP
No bowel or bladder incontinence, no saddle anaesthesia
CT imaging report as above
MRI lumbar and pelvis noted severe canal stenosis. Report above.
Neuro surgery recc: 1. Pain control, PT, and completion fo course of steroids. 2. JOSH. 3. Decompression via surgery.
Family leaning toward JOSH over surgery.
s/p JOSH by IR on 12/31
According to pt, she is still in pain and she wants to go ahead with surgery.
Psych CS for competency eval
If she is deem competent, will call neurosurgeon Dr Swetha heath for surgery eval
Of note, CRP negative which rules out inflammatory process
Other chronic medical conditions
# CAD with stents, continue home high-intensity statin, isosorbide mononitrate, metoprolol succinate, and potassium chloride
# GERD on Nexium
# Hypercholesterolemia, continue home statin
# NIDDM on Glipizide, continue Insulin Sliding Scale
# Fibromyalgia, Sjogren's syndrome
# IBS, continue Linzess
# h/o PE, completed course of DOAC for 1 year, was seeing Heme for this
# Urinary retention,
# giant cell arteritis
# Hypothyroid s/p Thyroidectomy on LT4
DVT Px: LMWH
Code: Full Code
DW RN
DW and daughter on the phone. Explained current situation in detail that pt is ultimately the decision maker for her own body, and that it is up to the patient to decide to proceed with surgery or not (not the family).
Family agree with psych eval for competency.
total time spent 51 min
Anticipated Discharge: 24 - 48 hours
Subjective/Interval History
-
Date of Service: January 02, 2024
Objective Data
-
Vital Signs:
Vital Signs
Temp Pulse Resp BP Pulse Ox
36.6 C 65 17 125/71 95
01/02/24 07:15 01/02/24 07:15 01/02/24 07:15 01/02/24 07:15 01/02/24 07:15
I&O
01/01/24 01/02/24 01/03/24
06:59 06:59 06:59
Intake Total 1050 / 1050 780 / 780
Balance 1050 / 1050 780 / 780
Review of Systems
-
Musculoskeletal: Reports Other (lower back pain)
Physical Exam
-
General: Well Developed, Well Nourished, No Apparent Distress, Comfortable and Conversant; Negative Respiratory Distress
HEENT: Normocephalic, Atraumatic, Nose Appears Normal and Ears Appear Normal; Negative Oxygen
Respiratory: Clear to Auscultation and Non Labored Respirations; Negative Accessory Resp Muscle Use
Cardiac: Regular Rhythm and S1/S2
GI: Soft, Nontender, Nondistended and Normal Bowel Sounds
Skin: Warm and Dry
Neuro: Awake and Alert
Psych: Calm
Data Reviewed
-
CT Scan: Report Reviewed by me
MRI: Report Reviewed by me, Discussed with Patient and Discussed with Family
Labs: Labs Reviewed by me
[2024-01-02] MEDS: COLACE 100 MG PO ×2 (09:52→21:18)
[2024-01-02] MEDS: RESTASIS 0.05% OPHTHALMIC EMULSION 1 DROPS BOTH EYES ×2 (09:53→21:23)
[2024-01-02] MEDS: OSCAL CAL 500 500 MG PO (09:53)
[2024-01-02] MEDS: ZYLOPRIM 100 MG PO (09:53)
[2024-01-02] MEDS: PROTONIX 40 MG PO (09:53)
[2024-01-02] MEDS: THERAGRAN 1 TABLET PO (09:53)
[2024-01-02] MEDS: NEURONTIN 300 MG PO ×3 (09:53→21:22)
[2024-01-02] MEDS: SENOKOT 17.2 MG PO ×2 (09:53→21:20)
[2024-01-02] MEDS: NON-FORMULARY ITEM 50 MG PO (09:54)
[2024-01-02] MEDS: NON-FORMULARY ITEM 1 UNIT PO ×3 (09:54→21:24)
[2024-01-02] MEDS: NON-FORMULARY ITEM 10 MG PO ×3 (09:55→21:25)
[2024-01-02] MEDS: NON-FORMULARY ITEM 30 MG PO ×3 (09:56→21:24)
[2024-01-02] MEDS: FLEXERIL 5 MG PO ×3 (10:09→21:22)
[2024-01-02] MEDS: GLUCOTROL 5 MG PO (10:10)
[2024-01-02] MEDS: IMDUR (EXTENDED RELEASE) 30 MG PO (10:10)
--- NOTE | 2024-01-02 11:51 | W.PN.UPDATE ---
Update Note
Progress Note Update
Psychiatric Evaluation for capacity to make decisions regarding medical care dictated.
I feel she has that capacity.
; she would like to see the surgeon so she could discuss with him the feasibility of procedure as well as possible risks vs benefits.
[2024-01-02 12:30] VITALS: BP 153/83; BP 166/82; PULSE 80; O2SAT 99
[2024-01-02 12:34] LABS: Glucose - Point of Care 189 mg/dl (70-99)
[2024-01-02 15:20] VITALS: BP 134/83
[2024-01-02] MEDS: VITAMIN D3 (cholecalciferol) 50 MCG PO (17:00)
[2024-01-02] MEDS: LOVENOX 40 MG SC (17:00)
[2024-01-02 17:06] LABS: Glucose - Point of Care 168 mg/dl (70-99)
[2024-01-02] MEDS: TOPROL XL 25 MG PO (21:18)
[2024-01-02] MEDS: ZETIA 10 MG PO (21:19)
[2024-01-02] MEDS: LIPITOR 40 MG PO (21:21)
[2024-01-02 21:40] LABS: Glucose - Point of Care 151 mg/dl (70-99)
[2024-01-02] MEDS: NON-FORMULARY ITEM 6.25 MG PO (21:43)
[2024-01-02 23:44] VITALS: BP 135/67
[2024-01-03] MEDS: ROXICODONE 10 MG PO ×5 (00:26→20:18)
[2024-01-03] MEDS: TYLENOL 650 MG PO ×5 (00:26→20:17)
[2024-01-03 03:49] VITALS: BP 142/73
[2024-01-03] MEDS: TYLENOL PO (04:00)
[2024-01-03] MEDS: IMDUR (EXTENDED RELEASE) 30 MG PO (06:18)
[2024-01-03] MEDS: SYNTHROID 125 MCG PO (06:18)
[2024-01-03] MEDS: LINZESS 290 MCG PO (06:28)
[2024-01-03 07:00] VITALS: BP 134/86
[2024-01-03 08:18] LABS: Glucose - Point of Care 178 mg/dl (70-99)
[2024-01-03] MEDS: NEURONTIN 300 MG PO ×3 (09:06→21:45)
[2024-01-03] MEDS: PROTONIX 40 MG PO (09:06)
[2024-01-03] MEDS: RESTASIS 0.05% OPHTHALMIC EMULSION 1 DROPS BOTH EYES ×2 (09:07→20:18)
[2024-01-03] MEDS: COLACE 100 MG PO ×2 (09:07→20:18)
[2024-01-03] MEDS: OSCAL CAL 500 500 MG PO (09:08)
[2024-01-03] MEDS: NON-FORMULARY ITEM 50 MG PO (09:08)
[2024-01-03] MEDS: ZYLOPRIM 100 MG PO (09:08)
[2024-01-03] MEDS: NON-FORMULARY ITEM 30 MG PO ×3 (09:10→21:46)
[2024-01-03] MEDS: NON-FORMULARY ITEM 10 MG PO ×3 (09:11→21:46)
[2024-01-03] MEDS: NON-FORMULARY ITEM 1 UNIT PO ×3 (09:11→21:46)
[2024-01-03] MEDS: FLEXERIL 5 MG PO ×3 (09:14→21:41)
[2024-01-03] MEDS: SENOKOT 17.2 MG PO ×2 (09:14→20:18)
[2024-01-03] MEDS: GLUCOTROL 5 MG PO (09:14)
[2024-01-03] MEDS: THERAGRAN 1 TABLET PO (09:14)
--- NOTE | 2024-01-03 09:33 | W.PN.HOSP.TC ---
Today's Communication/Plan
-
see A/P
Assessment / Plan
Assessment / Plan
CT THORACIC SPINE:
1. SEVERE CHRONIC FRACTURES of the T8 and T9 vertebral bodies with complete vertebral body collapse, severe retropulsion of the posterior cortex into the anterior epidural space, and a severe kyphosis in the mid-lower thoracic spine which appears
unchanged.
2. MODERATE SPINAL CORD COMPRESSION and CENTRAL CANAL STENOSIS at the T8-T9 levels which appears unchanged.
3. Severe bilateral neural foraminal narrowing at T8/T9.
4. Mild multilevel discogenic degenerative disease at the other thoracic levels.
5. Severe discogenic degenerative disease in the lower cervical spine with a disc-osteophyte complex at C5/C6 causing mild spinal cord compression, mild central canal stenosis, and severe right neural foraminal narrowing.
CT LUMBAR SPINE:
1. CHRONIC VERTEBRAL BODY ENDPLATE FRACTURES of L1 and L2 which have been treated with vertebroplasty. Moderate loss of vertebral body height at L1 with retropulsion of the posterior cortex into the anterior epidural space causing MODERATE CENTRAL
CANAL STENOSIS which appears unchanged.
2. MODERATE to SEVERE CENTRAL CANAL STENOSIS at L2/L3 secondary to a large diffuse disc bulge and bilateral facet joint arthrosis. Moderate to severe left neural foraminal narrowing at L2/L3.
3. Previous laminectomies and bilateral posterior instrumentation at L3/L4 and L4/L5.
4. 8.2 mm grade 2 anterolisthesis of L4 on L5 which appears unchanged.'
MRI lumbar/sacral spine:
Postoperative changes of L3-S1 posterior decompression with L3-L5 posterior spinal fusion. There is unchanged grade 1 anterolisthesis of L4 on L5.
Multilevel degenerative disc disease and facet arthropathy. This is most pronounced at L2-L3. There is severe canal stenosis and severe bilateral neuroforaminal narrowing at this level with T2 intermediate signal, favoring large left subarticular
disc extrusion, and bilateral facet arthropathy. Individual levels as above.
Chronic L1 and L2 compression fractures with post changes of kyphoplasty. There is retropulsion at L1 with associated mild/moderate canal stenosis at the superior L1 level, similar to prior.
A/P:
# Acute LBP/sacral area pain, with acute gait dysfunction, weakness and fall
# History of L3-L5 spinal fusion surgery
Currently on Medrol dose pack by PCP
No bowel or bladder incontinence, no saddle anaesthesia
CT imaging report as above
MRI lumbar and pelvis noted severe canal stenosis. Report above.
Neuro surgery recc: 1. Pain control, PT, and completion fo course of steroids. 2. JOSH. 3. Decompression via surgery.
s/p JOSH by IR on 12/31
Lower back pain has improved, however, pt would still like to chat to neurosurgery for second opinion. Reconsulted neurosurgery Dr Posada
Pt is has capacity to make medical decision per Psych
Of note, CRP negative which rules out inflammatory process
Other chronic medical conditions
# CAD with stents, continue home high-intensity statin, isosorbide mononitrate, metoprolol succinate, and potassium chloride
# GERD on Nexium
# Hypercholesterolemia, continue home statin
# NIDDM on Glipizide, continue Insulin Sliding Scale
# Fibromyalgia, Sjogren's syndrome
# IBS, continue Linzess
# h/o PE, completed course of DOAC for 1 year, was seeing Heme for this
# Urinary retention
# giant cell arteritis
# Hypothyroid s/p Thyroidectomy on LT4
DVT Px: LMWH
Code: Full Code
DW RN
DW daughter on the phone
Anticipated Discharge: > 48 hours
Subjective/Interval History
-
Date of Service: January 03, 2024
Objective Data
-
Vital Signs:
Vital Signs
Temp Pulse Resp BP Pulse Ox
36.6 C 80 17 134/86 94
01/03/24 07:00 01/03/24 07:00 01/03/24 07:00 01/03/24 07:00 01/03/24 07:00
I&O
01/02/24 01/03/2424
06:59 06:59 06:59
Intake Total 780 / 780 740 / 740
Balance 780 / 780 740 / 740
Review of Systems
-
Musculoskeletal: Reports Other (lower back pain has improved)
Physical Exam
-
General: Well Developed, Well Nourished, No Apparent Distress, Comfortable and Conversant; Negative Respiratory Distress
HEENT: Normocephalic, Atraumatic, Nose Appears Normal and Ears Appear Normal; Negative Oxygen
Respiratory: Clear to Auscultation and Non Labored Respirations; Negative Accessory Resp Muscle Use
Cardiac: Regular Rhythm and S1/S2
GI: Soft, Nontender, Nondistended and Normal Bowel Sounds
Skin: Warm and Dry
Neuro: Awake and Alert
Psych: Calm and Intact Judgement/Insight
Data Reviewed
-
CT Scan: Report Reviewed by me
MRI: Report Reviewed by me, Discussed with Patient and Discussed with Family
Labs: Labs Reviewed by me
[2024-01-03 11:47] LABS: Glucose - Point of Care 203 mg/dl (70-99)
[2024-01-03 12:26] VITALS: BP 151/78; PULSE 80; O2SAT 95
[2024-01-03 15:00] VITALS: BP 141/68
[2024-01-03 16:09] LABS: Glucose - Point of Care 190 mg/dl (70-99)
[2024-01-03] MEDS: LOVENOX 40 MG SC (16:42)
[2024-01-03] MEDS: VITAMIN D3 (cholecalciferol) 50 MCG PO (16:42)
--- NOTE | 2024-01-03 18:00 | PTCARENOTE ---
Pt has refused Insulin since admission. MD garcia.
[2024-01-03] MEDS: ZETIA 10 MG PO (21:42)
[2024-01-03] MEDS: TOPROL XL 25 MG PO (21:42)
[2024-01-03] MEDS: LIPITOR 40 MG PO (21:45)
[2024-01-03 21:46] LABS: Glucose - Point of Care 186 mg/dl (70-99)
[2024-01-03] MEDS: NON-FORMULARY ITEM 6.25 MG PO (21:52)
[2024-01-03 23:00] VITALS: BP 133/77
[2024-01-04] MEDS: ROXICODONE 10 MG PO ×5 (00:01→22:28)
[2024-01-04] MEDS: TYLENOL PO (04:43)
[2024-01-04] MEDS: LINZESS 290 MCG PO (06:13)
[2024-01-04] MEDS: SYNTHROID 125 MCG PO (06:13)
[2024-01-04] MEDS: IMDUR (EXTENDED RELEASE) 30 MG PO (06:17)
[2024-01-04 07:13] LABS: Hematocrit 38.8 % (37.0-47.0); Hemoglobin 13.2 g/dL (12.0-16.0); Mean Corpuscular Hgb 31.1 pg (27.0-31.0); Mean Corpuscular Volume 91.5 fL (81.0-99.0); Mean Platelet Volume 9.6 fL (7.4-10.4); Platelet Count 206 10^3/uL (130-400); Red Blood Cell Count 4.24 10^6/uL (4.20-5.40); Red Cell Dist. Width 13.7 % (11.5-14.5); White Blood Cell Count 9.7 10^3/uL (4.8-10.8)
[2024-01-04 07:25] LABS: Glucose - Point of Care 138 mg/dl (70-99)
[2024-01-04 07:30] VITALS: BP 143/75
[2024-01-04 08:26] LABS: Blood Urea Nitrogen 15 mg/dl (7-17); Calcium 9.8 mg/dl (8.4-10.2); Carbon Dioxide 26 mmol/L (22-30); Chloride 103 mmol/L (98-107); Glucose 130 mg/dl (70-99); Potassium 4.4 mmol/L (3.5-5.1); Sodium 139 mmol/L (135-145); eGFR > 60.00
--- NOTE | 2024-01-04 08:26 | W.PN.HOSP.TC ---
Today's Communication/Plan
-
Right Knee MRI to check for deep tissue infection, collection was present on ultrasound
Hold off on antibiotics for now
Ortho and ID to evaluate patient -- discussed plan for right knee with ortho, ID, and neurosurgery and everyone in agreement with current plan
Assessment / Plan
Assessment / Plan
Physical Exam
General: Not in acute distress
HEENT: Normocephalic, Atraumatic
Respiratory: Clear to Auscultation Bilaterally
Cardiac: Regular Rhythm and S1/S2
GI: Soft, Nontender, Nondistended and Normal Bowel Sounds
Skin: Warm and Dry
Musculoskeletal: Right Knee covered in bandage and dressing
Neuro: Awake and Alert
Psych: Calm and Intact Judgement/Insight

CT THORACIC SPINE:
1. SEVERE CHRONIC FRACTURES of the T8 and T9 vertebral bodies with complete vertebral body collapse, severe retropulsion of the posterior cortex into the anterior epidural space, and a severe kyphosis in the mid-lower thoracic spine which appears
unchanged.
2. MODERATE SPINAL CORD COMPRESSION and CENTRAL CANAL STENOSIS at the T8-T9 levels which appears unchanged.
3. Severe bilateral neural foraminal narrowing at T8/T9.
4. Mild multilevel discogenic degenerative disease at the other thoracic levels.
5. Severe discogenic degenerative disease in the lower cervical spine with a disc-osteophyte complex at C5/C6 causing mild spinal cord compression, mild central canal stenosis, and severe right neural foraminal narrowing.
CT LUMBAR SPINE:
1. CHRONIC VERTEBRAL BODY ENDPLATE FRACTURES of L1 and L2 which have been treated with vertebroplasty. Moderate loss of vertebral body height at L1 with retropulsion of the posterior cortex into the anterior epidural space causing MODERATE CENTRAL
CANAL STENOSIS which appears unchanged.
2. MODERATE to SEVERE CENTRAL CANAL STENOSIS at L2/L3 secondary to a large diffuse disc bulge and bilateral facet joint arthrosis. Moderate to severe left neural foraminal narrowing at L2/L3.
3. Previous laminectomies and bilateral posterior instrumentation at L3/L4 and L4/L5.
4. 8.2 mm grade 2 anterolisthesis of L4 on L5 which appears unchanged.'
MRI lumbar/sacral spine:
Postoperative changes of L3-S1 posterior decompression with L3-L5 posterior spinal fusion. There is unchanged grade 1 anterolisthesis of L4 on L5.
Multilevel degenerative disc disease and facet arthropathy. This is most pronounced at L2-L3. There is severe canal stenosis and severe bilateral neuroforaminal narrowing at this level with T2 intermediate signal, favoring large left subarticular
disc extrusion, and bilateral facet arthropathy. Individual levels as above.
Chronic L1 and L2 compression fractures with post changes of kyphoplasty. There is retropulsion at L1 with associated mild/moderate canal stenosis at the superior L1 level, similar to prior.
RIGHT KNEE X-RAY ( PER RADIOLOGIST'S REPORT)
'IMPRESSION:
Diffuse demineralization. No acute fracture or dislocation. 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 Extensive vascular calcifications. Trace suprapatellar joint effusion.'
RIGHT LOWER EXTREMITY ULTRASOUND ( PER RADIOLOGIST'S REPORT)
'IMPRESSION:
Small 3.3 cm fluid collection in the soft tissues anterolateral to the right patella. Diagnostic possibilities are (1) a liquefied hematoma, (2) prepatellar bursitis, or (3) an abscess if there are signs/symptoms of infection.'

Assessment/Plan
# Acute LBP/sacral area pain, with acute gait dysfunction, weakness and fall
# History of L3-L5 spinal fusion surgery
# Severe Spinal Canal Stenosis
Currently on Medrol dose pack by PCP
No bowel or bladder incontinence, no saddle anaesthesia
CT imaging report as above
MRI lumbar and pelvis noted severe canal stenosis.
Neuro surgery recc: 1. Pain control, PT, and completion fo course of steroids. 2. JOSH. 3. Decompression via surgery.
s/p Epidural Steroid Injection by IR on 01/01/24
Lower back pain has improved, however, patient and her family would like to proceed with surgery with neurosurgery -- however surgery is on hold until her right knee issues are addressed, as below.
Patient is has capacity to make medical decision per Psych
Of note, CRP negative which rules out inflammatory process
Right Knee Drainage, Erythema, Swelling
-Right knee ultrasound shows small 3.3 cm fluid collection
-Hold antibiotics as patient is stable
-Consulted orthopedics, appreciate evaluation and recommendations
-Consulted infectious disease, appreciate evaluation and recommendations
-Ordered MRI with and without contrast of the right knee given recent right knee infection and trauma
-On 01/04/24, I discussed all of the above with orthopedics, infectious disease and neurosurgery
Other chronic medical conditions
# CAD with stents, continue home high-intensity statin, isosorbide mononitrate, metoprolol succinate, and potassium chloride
# GERD on Nexium
# Hypercholesterolemia, continue home statin
# NIDDM on Glipizide, continue Insulin Sliding Scale
# Fibromyalgia, Sjogren's syndrome
# IBS, continue Linzess
# h/o PE, completed course of DOAC for 1 year, was seeing Heme for this
# Urinary retention
# giant cell arteritis
# Hypothyroid s/p Thyroidectomy on LT4
DVT Px: LMWH
Code: Full Code
Anticipated Discharge: > 48 hours
Subjective/Interval History
-
Date of Service: January 04, 2024
Patient was seen and examined. She reported back pain which she has had for a while now, but otherwise denied any new significant symptoms or complaints overnight.
Objective Data
-
Labs:
Laboratory Results
01/04/24
06:49
WBC 9.7
Hgb 13.2
Hct 38.8
Plt Count 206
Sodium Pending
Potassium Pending
Chloride Pending
Carbon Dioxide Pending
BUN Pending
Creatinine Pending
Glucose Pending
Calcium Pending
Vital Signs:
Vital Signs
Temp Pulse Resp BP Pulse Ox
98.3 F 64 18 143/75 98
01/04/24 07:30 01/04/24 07:30 01/04/24 07:30 01/04/24 07:30 01/04/24 07:30
I&O
01/03/24 01/04/24 01/05/24
06:59 06:59 06:59
Intake Total 740 / 740 1979
Balance 740 / 740 1979
[2024-01-04 08:28] LABS: C-Reactive Protein < 5.00 mg/L (0.0-10.00)
[2024-01-04] MEDS: PROTONIX 40 MG PO (08:35)
[2024-01-04] MEDS: NEURONTIN 300 MG PO ×3 (08:36→21:02)
[2024-01-04] MEDS: SENOKOT 17.2 MG PO (08:36)
[2024-01-04] MEDS: THERAGRAN 1 TABLET PO (08:36)
[2024-01-04] MEDS: ZYLOPRIM 100 MG PO (08:36)
[2024-01-04] MEDS: NON-FORMULARY ITEM 1 UNIT PO ×2 (08:37→21:02)
[2024-01-04] MEDS: NON-FORMULARY ITEM 50 MG PO (08:37)
[2024-01-04] MEDS: RESTASIS 0.05% OPHTHALMIC EMULSION 1 DROPS BOTH EYES ×2 (08:37→20:14)
[2024-01-04] MEDS: TYLENOL 650 MG PO ×5 (08:37→20:14)
[2024-01-04] MEDS: NON-FORMULARY ITEM 10 MG PO ×3 (08:38→21:03)
[2024-01-04] MEDS: NON-FORMULARY ITEM 30 MG PO ×3 (08:38→20:15)
[2024-01-04] MEDS: COLACE 100 MG PO ×2 (08:38→20:14)
[2024-01-04] MEDS: GLUCOTROL 5 MG PO (08:45)
[2024-01-04] MEDS: FLEXERIL 5 MG PO ×3 (08:45→21:10)
[2024-01-04] MEDS: OSCAL CAL 500 500 MG PO (08:46)
--- NOTE | 2024-01-04 10:00 | WOUNDNOTE ---
R HIP (POSTERIOR LOWER)
--- NOTE | 2024-01-04 10:01 | WOUNDNOTE ---
L HIP (POSTERIOR LOWER)
--- NOTE | 2024-01-04 10:09 | WOUNDNOTE ---
[facility] RN note: Patient admitted with acute lumbar disease complicated with acute gait dysfunction, fall on R knee. Patient lives with .
See H&P for complete history.
PMH: Fibromyalgia, Sjogren's, spinal fusion, back pain, uses wheelchair, NIDDM, IBS, PE, DVT (Eliquis), urinary retention, coronary stent, C section.
Wound Location and type/assessment: Patient admitted with: R knee lacerations pink with yellow fibrin with erythema and bruising. Patient c/o pain R knee. No tenderness, no induration, no crepitus, trace edema. +Pedal pulses. Heels blanchable red.
L lateral heel with dry cracked skin (patient confirmed present on admission). Faint scattered small bruises bilateral posterior lower hips.
Appetite: fair.
Pressure redistribution devices in place: Waffle air overlay. Air chair cushion. Patient turns self slowly in bed. She cannot tolerated HOB down d/t her back.
Plan: R knee dressing changed. Heels off bed with pillow. Instructed patient pressure injury prevention measures. Shola texted Dr. Hameed R knee wound pics asking hospitalist to evaluate for cellulitis vs bruising vs both. Hospitalist approved
local wound care, air overlay or air mattress. Waffle air overlay inflated.
Will update nurse Rebecca.
Care plan to be updated and will follow as needed.
Note to case management requested for discharge: VN if goes home.
Recommend follow up at wound care center upon discharge.
[2024-01-04 11:09] VITALS: BP 151/75; PULSE 69; O2SAT 96
--- NOTE | 2024-01-04 12:12 | PN.NS ---
Subjective
-
Patient seen and examined. She reports that she had very modest relief with her epidural steroid junction. She reports bilateral lower extremity weakness.
Physical Exam
-
Exam:
Exam:
Awake, alert, no apparent distress.
Cranial nerves II through XII are grossly intact.
Motor: 5/5 strength bilaterally in upper extremities and lower extremities.
Kyphotic curvature.
Sensation to light touch intact bilaterally in upper EXTR lower EXTR
Tenderness to palpation over bilateral sacral area. Healed lumbar incision noted over L3-L5.
Head is normocephalic, atraumatic.
Neck is supple.
Breathing nonlabored
Abdomen is not distended
Cardiac: Regular rate
Extremities are warm
MRI of the lumbar spine performed on 12/29/2023 was reviewed. No obvious evidence of STIR signal hyperintensity in the lumbar spine or sacral spine to suggest fracture. Patient has evidence of L3-L5 pedicle based fusion. At L2-L3 there appears to
be significant new spinal stenosis with posterior/dorsal compression due to soft tissue lesion noted on the left more so than the right which causes near complete obliteration of the thecal sac at this level. Differential diagnosis is synovial cyst
versus disc herniation versus less likely infectious process.
Problems
-
Problem Status Onset Code
Falls R29.6
Ambulatory dysfunction R26.2
Back pain M54.9
Assessment / Plan
-
This is an 83-year-old female with a history of L3-L5 spinal fusion surgery, now with sudden onset of back pain. MRI of the lumbar spine reveals severe spinal stenosis at L2-L3 due to dorsal compression from soft tissue lesion.
Lastly, discussion was held with the patient regarding management options. At that time, after extensive discussion with the patient's , and daughter, they wished for her to proceed with epidural steroid injection. I was called back over
the weekend with an update that the patient did not have any significant relief with the epidural steroid injection, and would like to revisit surgery.
Today, extensive discussion was held at bedside via telephone with the patient, the patient's , the patient's daughter, Mara.
They are all agreeable now to proceed with the proposed L2-L3 decompression.
However, patient is currently being evaluated for possible cellulitis/infection of her lower extremity.
I also explained, that would have to arrange for booking the surgery, pending that she is deemed cleared from an infectious perspective to proceed with surgical decompression later this week.
They expressed understanding of this.
Will discuss with hospital medicine.
Today's Communication
-
Patient, patient's , and daughter.
[2024-01-04 12:13] LABS: Glucose - Point of Care 72 mg/dl (70-99)
--- NOTE | 2024-01-04 14:30 | CM ---
Reviewed chart, spoke with Patti in admissions at the [facility] who stated she does not have bed availability at this time. Placed a call to patient's daughter, Mara, who stated that she is hopeful that by the time patient is discharged, there
will be a bed and at this time did not want to select another facility.
Placed a call to Patti to update that patient may not need a bed for several days. She stated that she will keep in touch with bed availability.
Plan: Case management will continue to follow and assist with discharge planning. Patient hopeful for [facility] upon discharge.
[2024-01-04 15:40] VITALS: BP 136/78
[2024-01-04 17:07] LABS: Glucose - Point of Care 188 mg/dl (70-99)
[2024-01-04] MEDS: LOVENOX 40 MG SC (17:15)
[2024-01-04] MEDS: VITAMIN D3 (cholecalciferol) 50 MCG PO (17:15)
[2024-01-04] MEDS: NON-FORMULARY ITEM 10 UNIT PO (17:18)
--- NOTE | 2024-01-04 18:01 | CON.ID ---
Consultation
-
Date/Time Consultation Requested: January 04, 2024 1511
Date/Time Consultation Performed: January 04, 2024 1800
Requesting Provider: Dr. Julius Hameed
Performing Provider: Dr. Araceli Stanley
Reason for Consultation: Right knee laceration fluid collection seen on ultrasound
Chief Complaint / Past History
Chief Complaint
Severe back pain status post fall
History of Present Illness
83-year-old female with history of diabetes mellitus, CAD, hx lumbar fusions/laminectomy, chronic back pain who developed acute onset of severe back pain approximately 1 to 2 weeks ago. Pain radiates down to both legs. Both legs became weaker.
She had difficulty with ambulation. She fell in the bathroom on to her right knee. She could not remember whether the knee hit the toilet or the floor. She sustained lacerations to the knee with profuse bleeding. She was sent to the ER November
. Lacerations were cleaned and steri-strips applied. CT and MRI of the spine shows new spinal stenosis with nerve compression. She underwent IR guided epidural injection without significant relief. Neurosurgery is planning decompression later
this week pending medical clearance. X-ray of the knee shows chondrocalcinosis without fracture; +trace suprapatellar joint effusion. Right lower extremity ultrasound showed a small 3.3 centimeter fluid collection in the soft tissue anterolateral
to the right patella which prompted an ID consult. Patient reports no significant right knee pain. No fevers or chills.
Past History
Additional Past Medical History:
DM
CAD s/p stents
GERD
Hypercholesterolemia
giant cell arteritis (left vision loss)
Sjogren's syndrome
Hypothyroidism
IBS
PE/DVT
gout
Fibromyalgia
Thyroidectomy,
Lumbar fusion x2, Lumbar laminectomies x 2 with instrumentation
Right hip nondisplaced fracture status post closed reduction percutaneous pinning
Allergy History:
Iodinated Contrast Media [Iodinated Contrast Media - Oral and] Allergy (Verified 11/17/22 10:04)
Shortness of Breath, rash
levofloxacin [From Levaquin] Allergy (Verified 11/17/22 10:04)
Shortness of Breath, Rash
nabumetone [From Relafen] Allergy (Verified 11/17/22 10:04)
STOMACH PROBLEMS, SOB
naproxen [Naproxen] Allergy (Verified 11/17/22 10:04)
STOMACH PROBLEMS, SOB
nifedipine [From Procardia] Allergy (Verified 11/17/22 10:04)
VOMITED X 24 HRS, SOB
Penicillins Allergy (Verified 11/17/22 10:04)
Rash/COULD NOT BREATHE
sulfamethoxazole [Sulfamethoxazole] Allergy (Verified 11/17/22 10:04)
STOMACH PROBLEMS, SOB
vancomycin [Vancomycin] Allergy (Verified 11/17/22 10:04)
TROUBLE BREATHING
Medications Reviewed: Yes
Current Antibiotics:
none
Social History
Tobacco: Non-Smoker
Alcohol: None
Drug: None
Personal:
Family History
Family History: Not Pertinent
Review of Systems
Review of Systems
General: Negative Fever, Chills or Change in Appetite
HEENT: Negative Sinus Problems or Headache
Cardiovascular: Negative Chest Pain or Edema
Respiratory: Negative Dyspnea or Cough
Gasteroenterology: Negative Nausea or Vomiting
Genital / Urological: Negative Dysuria or Flank Pain
Skin / Hair / Nails: Negative Rash
Neurological: Negative Headache or Dizziness
All systems: All other systems were reviewed and were negative
Vital Signs
Temp Pulse Resp BP Pulse Ox
98.3 F 89 16 136/78 94
01/04/24 15:40 01/04/24 15:40 01/04/24 15:40 01/04/24 15:40 01/04/24 15:40
Physical Exam
Physical Exam
Constitutional: No Acute Distress and Comfortable
Eyes: No Conjunctival Hemorrhage and Sclera Anicteric
Cardiovascular: Regular Rate and S1/S2
Pulmonary: Clear
Gastrointestinal: Soft, Non Tender, Non Distended and Normal Bowel Sounds
Genito-Urinary: Negative CVA Tenderness
Extremities: Negative Edema
Wound: Other (Right prepatella: 3 lacerations with Steri-Strips, periwound mild erythema, distal largest laceration wound with dark ecchymosis.)
Lab / Diagnostic Study Results
01/04/24 06:49
01/04/24 06:49
Abs Immat Gran (auto) 0.2 10^3/uL (0-0.05) H 12/28/23 06:38
Absolute Neuts (auto) 5.7 10^3/uL (1.4-6.5) 12/28/23 06:38
Absolute Lymphs (auto) 1.4 10^3/uL (1.2-3.4) 12/28/23 06:38
Absolute Monos (auto) 0.6 10^3/uL (0.1-0.6) 12/28/23 06:38
Absolute Basos (auto) 0.1 10^3/uL (0-0.2) 12/28/23 06:38
Immature Gran % 2.3 % (0-0.5) H 12/28/23 06:38
Neutrophils % 71.3 % (42.2-75.2) 12/28/23 06:38
Lymphocytes % 17.6 % (20.5-51.1) L 12/28/23 06:38
Monocytes % 7.5 % (1.7-9.3) 12/28/23 06:38
Eosinophils % 0.4 % (0-6) 12/28/23 06:38
Basophils % 0.9 % (0-2) 12/28/23 06:38
PT 13.7 Sec (11.4-14.6) 01/01/24 06:14
INR 1.05 01/01/24 06:14
C-Reactive Protein < 5.00 mg/L (0.0-10.00) 01/04/24 06:49
Ur Squamous Epith Cells 0-2 /LPF (Few) 12/27/23 15:38
Microbiology Results
Micro:
12/27/23 15:38 Urine Culture - Final
Urine NO GROWTH
01/04/24 RLE US: Small 3.3 cm fluid collection in the soft tissues anterolateral to the right patella. Diagnostic possibilities are (1) a liquefied hematoma, (2) prepatellar bursitis, or (3) an abscess if there are signs/symptoms of infection.
01/03/24 Knee XRAY: Diffuse demineralization. No acute fracture or dislocation. 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 Extensive vascular calcifications. Trace suprapatellar joint
effusion.
Assessment / Plan
# Right pre-patella lacerations (with profuse bleeding) after fall.
- No overt signs of cellulitis.
Expected to have tania-wound hyperemia from inflammation.
- Suspect fluid collection detected by US is hematoma.
- Observe off abx at this time.
# Lumbar spinal stenosis with refractory severe back pain.
- From ID standpoint, she is cleared for decompression surgery.
# Multiple abx allergies: PCN, levofloxacin, sulfa, Vancomycin all difficulty breathing.
[2024-01-04] MEDS: ROXICODONE 5 MG PO (20:14)
[2024-01-04] MEDS: SENOKOT PO (20:14)
[2024-01-04] MEDS: LIPITOR 40 MG PO (21:02)
[2024-01-04] MEDS: ZETIA 10 MG PO (21:02)
[2024-01-04] MEDS: TOPROL XL 25 MG PO (21:07)
[2024-01-04] MEDS: REFRESH EYE DROPS (PF) 1 DROPS OPHTH (21:08)
[2024-01-04 21:50] LABS: Glucose - Point of Care 218 mg/dl (70-99)
[2024-01-04 23:17] VITALS: BP 142/78
[2024-01-04] MEDS: NON-FORMULARY ITEM 6.25 MG PO (23:17)
[2024-01-05] MEDS: TYLENOL PO (01:13)
[2024-01-05] MEDS: TYLENOL 650 MG PO ×5 (03:37→20:58)
[2024-01-05] MEDS: ROXICODONE 10 MG PO ×5 (03:37→21:13)
[2024-01-05] MEDS: LINZESS 290 MCG PO (05:55)
[2024-01-05] MEDS: SYNTHROID 125 MCG PO (05:55)
[2024-01-05] MEDS: IMDUR (EXTENDED RELEASE) 30 MG PO (05:56)
[2024-01-05 07:18] VITALS: BP 139/81
--- NOTE | 2024-01-05 07:40 | CON.ORTHO ---
Consultation
-
Date/Time Consultation Requested: 01/04/24
Date/Time Consultation Performed: 01/05/24 @7:30am
Requesting Provider: Zari
Performing Provider: Kassie Pearson PA-C, Anika Robin DO
Reason for Consultation: right knee wound
Consultation - Orthopedics
History
HPI: 83yo female admitted to [facility] on 12/26/23 for worsening low back pain radiating to her legs. She reports that prior to her admission, she had a fall in the bathroom. She bumped her knee on either the floor or the toilet and
sustained a knee laceration with profuse bleeding. Currently, she is lying comfortably in bed. She reports that she has no pain in her knee, it just feels stiff. She denies fever, chills. She is able to perform range of motion of the knee. She is
planned for possible spinal surgery with Neurosurgery later this week. She reports that she is scheduled for a MRI of the knee today.
PAST MEDICAL HISTORY: chronic back pain, fibromyalgia, Sjogren's, CAD, GERD, NIDDM, IBS, hypercholesterolemia, history of DVT/PE, urinary retention, giant cell arteritis
PAST SURGICAL HISTORY: spinal fusion x2, cardiac stent, , thyroidectomy
SOCIAL HISTORY: denies tobacco and alcohol. lives in independent living at [facility]. ambulates with walker/wheelchair as needed
FAMILY HISTORY: Non contributory
REVIEW OF SYSTEMS: 12 point review of systems obtained and negative except those mentioned in the HPI
Allergies / Home Medications
Allergy/AdvReac Type Severity Reaction Status Date / Time
Iodinated Contrast Media Allergy Shortness Verified 11/17/22 10:04
[Iodinated Contrast Media - of Breath,
Oral and] rash
levofloxacin [From Levaquin] Allergy Shortness Verified 11/17/22 10:04
of Breath,
Rash
nabumetone [From Relafen] Allergy STOMACH Verified 11/17/22 10:04
PROBLEMS,
SOB
naproxen [Naproxen] Allergy STOMACH Verified 11/17/22 10:04
PROBLEMS,
SOB
nifedipine [From Procardia] Allergy VOMITED X Verified 11/17/22 10:04
24 HRS, SOB
Penicillins Allergy Rash/COULD Verified 11/17/22 10:04
NOT BREATHE
sulfamethoxazole Allergy STOMACH Verified 11/17/22 10:04
[Sulfamethoxazole] PROBLEMS,
SOB
vancomycin [Vancomycin] Allergy TROUBLE Verified 11/17/22 10:04
BREATHING
�Medication �Instructions �Recorded
cevimeline 30 mg capsule (Evoxac) 30 mg PO TID dry mouth 08/10/12
cyclosporine 0.05 % eye drops in a 1 drp BOTH EYES BID Eye condition 08/10/12
dropperette (Restasis)
gabapentin 300 mg capsule 300 mg PO TID Neurological 08/10/12
Condition
atorvastatin 20 mg tablet 40 mg PO HS High cholesterol 06/27/16
cholecalciferol (vitamin D3) 50 2,000 units PO QPM Supplement 01/15/17
mcg (2,000 unit) tablet
metoprolol succinate 25 mg 25 mg PO HS Heart disease/condition 01/15/17
tablet,extended release 24 hr
glipizide 5 mg tablet 5 mg PO DAILY Diabetes 02/02/17
Domperidone 10 mg PO TID Gastrointestinal issue 11/20/18
allopurinol 100 mg tablet 100 mg PO DAILY Gout 11/20/18
potassium chloride 10 mEq 10 meq PO TID Electrolyte Repletion 11/20/18
capsule,extended release
isosorbide mononitrate 30 mg 30 mg PO DAILY@0700 Heart 06/29/20
tablet,extended release 24 hr disease/condition
ezetimibe 10 mg tablet (Zetia) 10 mg PO HS High cholesterol 07/01/20
multivit with minerals-iron 18 1 ea PO DAILY Supplement 07/01/20
mg-folic ac 400 mcg-vit K 25 mcg
tablet (Adults Multivitamin)
levothyroxine 125 mcg tablet 125 mcg PO DAILY Thyroid 07/26/23
(Synthroid)
mirabegron 50 mg tablet,extended 50 mg PO DAILY Urinary Issue 07/26/23
release 24 hr (Myrbetriq)
oxycodone 10 mg tablet 10 mg PO Q5H Pain 07/26/23
polyethylene glycol 3350 17 gram 17 g PO DAILYPRN PRN constipation 07/26/23
oral powder packet (Miralax)
therapeutic multivitamin 1 tab PO DAILY Supplement 07/26/23
Tylenol 1,000 mg PO TID PRN pain 12/26/23
calcium carbonate 500 mg PO DAILY Supplement 12/26/23
esomeprazole magnesium 40 mg 40 mg PO DAILY Gastrointestinal 12/26/23
capsule,delayed release (Nexium) Issue
linaclotide 290 mcg capsule 290 mcg PO DAILY Constipation 12/26/23
(Linzess)
zolpidem 6.25 mg tablet,extended 6.25 mg PO HS Sleep 12/26/23
release,multiphase (Ambien CR)
Vital Signs / Lab Results
Temp Pulse Resp BP Pulse Ox
97.8 F 77 15 139/81 97
01/05/24 07:18 01/05/24 07:18 01/05/24 07:18 01/05/24 07:18 01/05/24 07:18
01/04/24 06:49
01/04/24 06:49
RADIOGRAPHIC FINDINGS:
Xrays right knee reveal diffuse demineralization. No acute fracture or dislocation. 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 Extensive vascular calcifications. Trace suprapatellar
joint effusion
Ultrasound right lower extremity reveals small 3.3 cm fluid collection in the soft tissues anterolateral to the right patella. Diagnostic possibilities are (1) a liquefied hematoma, (2) prepatellar bursitis, or (3) an abscess if there are
signs/symptoms of infection.
PHYSICAL EXAM:
General: no a cute distress
HEENT: NCAT, sclera anicteric, normal hearing
Heart: No JVD
Lungs: Normal work of breathing on room air
MSK: Directed exam of right knee reveal three lacerations to the anterior knee with few steri strips in place. Periwound mild erythema. No active drainage. Distal laceration with ecchymosis. No effusion. No fluctuance. ROM 0-100. Calf soft and
nontender. NVI distally
Assessment / Plan
ASSESSMENT: 83yo female with right knee laceration following a fall, low back pain
PLAN: Ms. Palafox has sustained lacerations to the right anterior knee. These appear to be healing well. She has good range of motion and little to no pain in the knee. No area of fluctuance. Will hold off on aspiration at this time. She may perform
range of motion and weight bear as tolerated to the right leg. Continue with local wound care. She is scheduled for MRI of the right knee today. Will follow up on results.
[2024-01-05 08:09] LABS: Glucose - Point of Care 135 mg/dl (70-99)
[2024-01-05] MEDS: PROTONIX 40 MG PO (08:28)
[2024-01-05] MEDS: GLUCOTROL 5 MG PO (08:28)
[2024-01-05] MEDS: NEURONTIN 300 MG PO ×3 (08:28→21:00)
[2024-01-05] MEDS: FLEXERIL 5 MG PO ×3 (08:28→21:12)
[2024-01-05] MEDS: OSCAL CAL 500 500 MG PO (08:28)
[2024-01-05] MEDS: THERAGRAN 1 TABLET PO (08:29)
[2024-01-05] MEDS: RESTASIS 0.05% OPHTHALMIC EMULSION 1 DROPS BOTH EYES ×2 (08:29→20:59)
[2024-01-05] MEDS: COLACE 100 MG PO ×2 (08:30→20:59)
[2024-01-05] MEDS: NON-FORMULARY ITEM 50 MG PO (08:31)
[2024-01-05] MEDS: ZYLOPRIM 100 MG PO (08:31)
[2024-01-05] MEDS: NON-FORMULARY ITEM 10 MG PO ×3 (08:31→21:01)
[2024-01-05] MEDS: NON-FORMULARY ITEM 1 UNIT PO ×3 (08:32→21:00)
[2024-01-05] MEDS: NON-FORMULARY ITEM 30 MG PO ×3 (08:32→20:59)
[2024-01-05] MEDS: SENOKOT PO (08:33)
[2024-01-05 08:39] LABS: % Eosinophils 0.8 % (0-6); % Immature Granulocytes 4.2 % (0-0.5); % Lymphocytes 10.3 % (20.5-51.1); % Monocytes 7.9 % (1.7-9.3); % Neutrophils 75.8 % (42.2-75.2); Absolute Basophils 0.1 10^3/uL (0-0.2); Absolute Eosinophils 0.1 10^3/uL (0-0.7); Absolute Immature Granulocytes 0.4 10^3/uL (0-0.05); Absolute Lymphocytes 0.9 10^3/uL (1.2-3.4); Absolute Monocytes 0.7 10^3/uL (0.1-0.6); Absolute Neutrophils 6.8 10^3/uL (1.4-6.5); Hematocrit 38.2 % (37.0-47.0); Hemoglobin 13.3 g/dL (12.0-16.0); Mean Corp Hgb Conc. 34.8 g/dL (33.0-37.0); Mean Platelet Volume 9.4 fL (7.4-10.4); Nucleated Red Blood Cells % 0 %; Platelet Count 189 10^3/uL (130-400); Red Blood Cell Count 4.15 10^6/uL (4.20-5.40); Red Cell Dist. Width 13.9 % (11.5-14.5); White Blood Cell Count 8.9 10^3/uL (4.8-10.8)
[2024-01-05 09:05] LABS: Blood Urea Nitrogen 10 mg/dl (7-17); Calcium 9.7 mg/dl (8.4-10.2); Carbon Dioxide 24 mmol/L (22-30); Chloride 105 mmol/L (98-107); Glucose 126 mg/dl (70-99); Magnesium 1.8 mg/dl (1.6-2.3); Potassium 4.4 mmol/L (3.5-5.1); Sodium 139 mmol/L (135-145); eGFR > 60.00
--- NOTE | 2024-01-05 10:21 | W.PN.UPDATE ---
Update Note
Progress Note Update
Patient seen and examined. Agree with orthopedic PA note. Patient is not complaining of discomfort. She had a fall that she had sustained on 12/26/2023 that caused lacerations at the area of her tibial tuberosity.
Right knee:She has minimal erythema around the area of laceration that is healing through secondary intention. No active drainage. No effusion when compared to the opposite side. Active range of motion 0 to 130 degrees. Patient is in no apparent
distress. No palpable masses or loculations
Impression right knee lacerations
Plan: Patient is obtaining an MRI to rule out abscess that may communicate with the joint. There is no evidence of loculation to aspirate. Even if there is a fluid collection it would likely be hematoma related. If there is concern that this is
infectious, then it would need to be aspirated then it should be done by interventional radiology through ultrasound or CT guidance.
[2024-01-05 12:46] VITALS: BP 132/90; PULSE 88; O2SAT 96
--- NOTE | 2024-01-05 13:34 | PN.NS ---
Subjective
-
No changes in complaints. No response to epidural steroid injection
Physical Exam
-
Exam:
Exam:
Awake, alert, no apparent distress.
Cranial nerves II through XII are grossly intact.
Motor: 5/5 strength bilaterally in upper extremities and lower extremities.
Kyphotic curvature.
Sensation to light touch intact bilaterally in upper EXTR lower EXTR
Tenderness to palpation over bilateral sacral area. Healed lumbar incision noted over L3-L5.
Head is normocephalic, atraumatic.
Neck is supple.
Breathing nonlabored
Abdomen is not distended
Cardiac: Regular rate
Extremities are warm
MRI of the lumbar spine performed on 12/29/2023 was reviewed. No obvious evidence of STIR signal hyperintensity in the lumbar spine or sacral spine to suggest fracture. Patient has evidence of L3-L5 pedicle based fusion. At L2-L3 there appears to
be significant new spinal stenosis with posterior/dorsal compression due to soft tissue lesion noted on the left more so than the right which causes near complete obliteration of the thecal sac at this level. Differential diagnosis is synovial cyst
versus disc herniation versus less likely infectious process.
Problems
-
Problem Status Onset Code
Falls R29.6
Ambulatory dysfunction R26.2
Back pain M54.9
Assessment / Plan
-
This is an 83-year-old female with a history of L3-L5 spinal fusion surgery, now with sudden onset of back pain. MRI of the lumbar spine reveals severe spinal stenosis at L2-L3 due to dorsal compression from soft tissue lesion.
Patient require surgical intervention. In my opinion this represents a large synovial cyst with small superimposed disc herniation.
Patient tentatively going to have surgery on Thursday. She is still pending MRI of her leg.
Will await results
Today's Communication
-
[2024-01-05] MEDS: ROXICODONE 5 MG PO (14:28)
[2024-01-05 15:30] VITALS: BP 153/76
--- NOTE | 2024-01-05 16:49 | W.PN.HOSP.TC ---
Today's Communication/Plan
-
MRI of the right knee tomorrow with anesthesia/sedation
Spine surgery tentatively scheduled for Monday, January 08, 2024
Assessment / Plan
Assessment / Plan
Physical Exam
General: Not in acute distress
HEENT: Normocephalic, Atraumatic
Respiratory: Clear to Auscultation Bilaterally
Cardiac: Regular Rhythm and S1/S2
GI: Soft, Nontender, Nondistended and Normal Bowel Sounds
Skin: Warm and Dry
Musculoskeletal: Right Knee covered in bandage and dressing
Neuro: Awake and Alert
Psych: Calm and Intact Judgement/Insight

CT THORACIC SPINE:
1. SEVERE CHRONIC FRACTURES of the T8 and T9 vertebral bodies with complete vertebral body collapse, severe retropulsion of the posterior cortex into the anterior epidural space, and a severe kyphosis in the mid-lower thoracic spine which appears
unchanged.
2. MODERATE SPINAL CORD COMPRESSION and CENTRAL CANAL STENOSIS at the T8-T9 levels which appears unchanged.
3. Severe bilateral neural foraminal narrowing at T8/T9.
4. Mild multilevel discogenic degenerative disease at the other thoracic levels.
5. Severe discogenic degenerative disease in the lower cervical spine with a disc-osteophyte complex at C5/C6 causing mild spinal cord compression, mild central canal stenosis, and severe right neural foraminal narrowing.
CT LUMBAR SPINE:
1. CHRONIC VERTEBRAL BODY ENDPLATE FRACTURES of L1 and L2 which have been treated with vertebroplasty. Moderate loss of vertebral body height at L1 with retropulsion of the posterior cortex into the anterior epidural space causing MODERATE CENTRAL
CANAL STENOSIS which appears unchanged.
2. MODERATE to SEVERE CENTRAL CANAL STENOSIS at L2/L3 secondary to a large diffuse disc bulge and bilateral facet joint arthrosis. Moderate to severe left neural foraminal narrowing at L2/L3.
3. Previous laminectomies and bilateral posterior instrumentation at L3/L4 and L4/L5.
4. 8.2 mm grade 2 anterolisthesis of L4 on L5 which appears unchanged.'
MRI lumbar/sacral spine:
Postoperative changes of L3-S1 posterior decompression with L3-L5 posterior spinal fusion. There is unchanged grade 1 anterolisthesis of L4 on L5.
Multilevel degenerative disc disease and facet arthropathy. This is most pronounced at L2-L3. There is severe canal stenosis and severe bilateral neuroforaminal narrowing at this level with T2 intermediate signal, favoring large left subarticular
disc extrusion, and bilateral facet arthropathy. Individual levels as above.
Chronic L1 and L2 compression fractures with post changes of kyphoplasty. There is retropulsion at L1 with associated mild/moderate canal stenosis at the superior L1 level, similar to prior.
RIGHT KNEE X-RAY ( PER RADIOLOGIST'S REPORT)
'IMPRESSION:
Diffuse demineralization. No acute fracture or dislocation. 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 Extensive vascular calcifications. Trace suprapatellar joint effusion.'
RIGHT LOWER EXTREMITY ULTRASOUND ( PER RADIOLOGIST'S REPORT)
'IMPRESSION:
Small 3.3 cm fluid collection in the soft tissues anterolateral to the right patella. Diagnostic possibilities are (1) a liquefied hematoma, (2) prepatellar bursitis, or (3) an abscess if there are signs/symptoms of infection.'

Assessment/Plan
# Acute LBP/sacral area pain, with acute gait dysfunction, weakness and fall
# History of L3-L5 spinal fusion surgery
# Severe Spinal Canal Stenosis
Currently on Medrol dose pack by PCP
No bowel or bladder incontinence, no saddle anaesthesia
CT imaging report as above
MRI lumbar and pelvis noted severe canal stenosis.
Neuro surgery recc: 1. Pain control, PT, and completion fo course of steroids. 2. JOSH. 3. Decompression via surgery.
s/p Epidural Steroid Injection by IR on 01/01/24
Lower back pain has improved, however, patient and her family would like to proceed with surgery with neurosurgery -- however surgery is on hold (tentatively scheduled for Monday, January 08, 2024) until her right knee issues are addressed, as
below.
Patient has capacity to make medical decisions per Psychiatry
Of note, CRP negative which rules out inflammatory process
#Right Knee lacerations (with profuse bleeding) after fall.
-Right knee ultrasound shows small 3.3 cm fluid collection -- suspected to be hematoma
-Hold antibiotics as patient is stable -- no need for antibiotics right now
-Consulted orthopedics, appreciate evaluation and recommendations
-Consulted infectious disease, appreciate evaluation and recommendations
-Ordered MRI with and without contrast to rule out abscess that may communicate with the joint -- MRI with anesthesia scheduled for 01/06/24
-On 01/04/24, I discussed all of the above with orthopedics, infectious disease and neurosurgery
Other chronic medical conditions
# CAD with stents, continue home high-intensity statin, isosorbide mononitrate, metoprolol succinate, and potassium chloride
# GERD on Nexium
# Hypercholesterolemia, continue home statin
# NIDDM on Glipizide, continue Insulin Sliding Scale
# Fibromyalgia, Sjogren's syndrome
# IBS, continue Linzess
# h/o PE, completed course of DOAC for 1 year, was seeing Heme for this
# Urinary retention
# giant cell arteritis
# Hypothyroid s/p Thyroidectomy on LT4
DVT Px: LMWH
Code: Full Code
Anticipated Discharge: > 48 hours
Subjective/Interval History
-
Date of Service: January 05, 2024
Patient was seen and examined. She denied any new symptoms or complaints.
Objective Data
-
Labs:
Laboratory Results
01/05/24
08:25
WBC 8.9
Hgb 13.3
Hct 38.2
Plt Count 189
Sodium 139
Potassium 4.4
Chloride 105
Carbon Dioxide 24
BUN 10
Creatinine 0.5 L
Glucose 126 H
Calcium 9.7
Vital Signs:
Vital Signs
Temp Pulse Resp BP Pulse Ox
97.8 F 77 15 139/81 97
01/05/24 07:18 01/05/24 07:18 01/05/24 07:18 01/05/24 07:18 01/05/24 07:18
I&O
01/04/24 01/05/24 01/06/24
06:59 06:59 06:59
Intake Total 1979 650 / 650
Output Total 400 / 400
Balance 1979 250 / 250
[2024-01-05] MEDS: VITAMIN D3 (cholecalciferol) 50 MCG PO (17:19)
[2024-01-05] MEDS: LOVENOX 40 MG SC (17:19)
[2024-01-05] MEDS: SENOKOT 17.2 MG PO (20:59)
[2024-01-05] MEDS: LIPITOR 40 MG PO (21:00)
[2024-01-05] MEDS: ZETIA 10 MG PO (21:00)
[2024-01-05] MEDS: TOPROL XL 25 MG PO (21:00)
[2024-01-05 21:11] LABS: Glucose - Point of Care 259 mg/dl (70-99)
[2024-01-05] MEDS: NON-FORMULARY ITEM 6.25 MG PO (23:08)
[2024-01-05 23:30] VITALS: BP 146/76
[2024-01-06] MEDS: TYLENOL PO (01:10)
[2024-01-06] MEDS: ROXICODONE 5 MG PO ×3 (01:58→17:33)
[2024-01-06] MEDS: ROXICODONE 10 MG PO ×4 (04:37→20:08)
[2024-01-06] MEDS: TYLENOL 650 MG PO ×5 (04:37→20:10)
[2024-01-06] MEDS: IMDUR (EXTENDED RELEASE) 30 MG PO (06:08)
[2024-01-06] MEDS: SYNTHROID 125 MCG PO (06:09)
[2024-01-06] MEDS: LINZESS 290 MCG PO (06:09)
--- NOTE | 2024-01-06 07:19 | W.PN.UPDATE ---
Update Note
Progress Note Update
Ms. Palafox is resting comfortably in bed this morning. She denies any significant changes in her knee pain since yesterday. We are awaiting MRI of her right knee for further evaluation and management.
Directed exam of the right knee reveals mild hue of erythema about the anterior knee, and lacerations overlying the tibial tubercle. No obvious effusion or collections. Pain with knee ROM. Calf soft and nontender. Neurovascularly intact distally.
Patient may benefit from non-adherent dressing over the lacerations. Continue pain control per primary. Orthopedics will continue to follow along. Will reevaluate once MRI has been completed. Holding antibiotics for now.
[2024-01-06 07:40] VITALS: BP 128/64
[2024-01-06 08:01] LABS: Glucose - Point of Care 152 mg/dl (70-99)
[2024-01-06] MEDS: FLEXERIL 5 MG PO ×3 (08:07→21:47)
[2024-01-06] MEDS: PROTONIX 40 MG PO (08:07)
[2024-01-06] MEDS: RESTASIS 0.05% OPHTHALMIC EMULSION 1 DROPS BOTH EYES ×2 (08:07→20:11)
[2024-01-06] MEDS: THERAGRAN 1 TABLET PO (08:08)
[2024-01-06] MEDS: COLACE 100 MG PO ×2 (08:08→20:09)
[2024-01-06] MEDS: OSCAL CAL 500 500 MG PO (08:09)
[2024-01-06] MEDS: ZYLOPRIM 100 MG PO (08:09)
[2024-01-06] MEDS: SENOKOT 17.2 MG PO ×2 (08:09→20:09)
[2024-01-06] MEDS: NEURONTIN 300 MG PO ×3 (08:09→21:50)
[2024-01-06] MEDS: NON-FORMULARY ITEM 1 UNIT PO ×3 (08:09→21:51)
[2024-01-06] MEDS: NON-FORMULARY ITEM 50 MG PO (08:10)
[2024-01-06] MEDS: NON-FORMULARY ITEM 30 MG PO ×2 (08:10→15:23)
[2024-01-06] MEDS: NON-FORMULARY ITEM 10 MG PO ×2 (08:10→15:21)
[2024-01-06] MEDS: GLUCOTROL PO (08:11)
[2024-01-06 09:59] LABS: % Basophils 0.8 % (0-2); % Immature Granulocytes 4.8 % (0-0.5); % Lymphocytes 10.7 % (20.5-51.1); % Monocytes 8.3 % (1.7-9.3); % Neutrophils 74.4 % (42.2-75.2); Absolute Basophils 0.1 10^3/uL (0-0.2); Absolute Eosinophils 0.1 10^3/uL (0-0.7); Absolute Immature Granulocytes 0.4 10^3/uL (0-0.05); Absolute Monocytes 0.8 10^3/uL (0.1-0.6); Absolute Neutrophils 6.9 10^3/uL (1.4-6.5); Hematocrit 38.1 % (37.0-47.0); Mean Corp Hgb Conc. 34.1 g/dL (33.0-37.0); Mean Corpuscular Hgb 32.2 pg (27.0-31.0); Mean Corpuscular Volume 94.3 fL (81.0-99.0); Mean Platelet Volume 9.4 fL (7.4-10.4); Nucleated Red Blood Cells % 0 %; Platelet Count 217 10^3/uL (130-400); Red Blood Cell Count 4.04 10^6/uL (4.20-5.40); Red Cell Dist. Width 13.9 % (11.5-14.5); White Blood Cell Count 9.2 10^3/uL (4.8-10.8)
[2024-01-06 10:54] LABS: Blood Urea Nitrogen 15 mg/dl (7-17); Carbon Dioxide 21 mmol/L (22-30); Chloride 103 mmol/L (98-107); Glucose 148 mg/dl (70-99); Potassium 4.4 mmol/L (3.5-5.1); Sodium 137 mmol/L (135-145); eGFR > 60.00
--- NOTE | 2024-01-06 12:12 | CM ---
CM following re: discharge planning.
Reviewed pt's chart.
Per chart review, patient tentatively going to have surgery on Thursday. MRI of her leg today.
PT and OT evaluations noted - SNF level of care recommended. Both pt and her family are aware, [facility] preferred.
D/C plan: [facility] based on bed availability on the day of discharge.
CM will follow with discharge plan updates as hospitalization progresses
[2024-01-06 12:15] VITALS: BP 139/53
[2024-01-06 12:26] VITALS: BP 122/61
--- NOTE | 2024-01-06 15:27 | W.PN.HOSP.TC ---
Today's Communication/Plan
-
MRI
Spine surgery tenatively for Thursday
Assessment / Plan
Assessment / Plan
Physical Exam
Physical Exam was not performed as patient was not present in his room at the time of attempted patient encounter.

CT THORACIC SPINE:
1. SEVERE CHRONIC FRACTURES of the T8 and T9 vertebral bodies with complete vertebral body collapse, severe retropulsion of the posterior cortex into the anterior epidural space, and a severe kyphosis in the mid-lower thoracic spine which appears
unchanged.
2. MODERATE SPINAL CORD COMPRESSION and CENTRAL CANAL STENOSIS at the T8-T9 levels which appears unchanged.
3. Severe bilateral neural foraminal narrowing at T8/T9.
4. Mild multilevel discogenic degenerative disease at the other thoracic levels.
5. Severe discogenic degenerative disease in the lower cervical spine with a disc-osteophyte complex at C5/C6 causing mild spinal cord compression, mild central canal stenosis, and severe right neural foraminal narrowing.
CT LUMBAR SPINE:
1. CHRONIC VERTEBRAL BODY ENDPLATE FRACTURES of L1 and L2 which have been treated with vertebroplasty. Moderate loss of vertebral body height at L1 with retropulsion of the posterior cortex into the anterior epidural space causing MODERATE CENTRAL
CANAL STENOSIS which appears unchanged.
2. MODERATE to SEVERE CENTRAL CANAL STENOSIS at L2/L3 secondary to a large diffuse disc bulge and bilateral facet joint arthrosis. Moderate to severe left neural foraminal narrowing at L2/L3.
3. Previous laminectomies and bilateral posterior instrumentation at L3/L4 and L4/L5.
4. 8.2 mm grade 2 anterolisthesis of L4 on L5 which appears unchanged.'
MRI lumbar/sacral spine:
Postoperative changes of L3-S1 posterior decompression with L3-L5 posterior spinal fusion. There is unchanged grade 1 anterolisthesis of L4 on L5.
Multilevel degenerative disc disease and facet arthropathy. This is most pronounced at L2-L3. There is severe canal stenosis and severe bilateral neuroforaminal narrowing at this level with T2 intermediate signal, favoring large left subarticular
disc extrusion, and bilateral facet arthropathy. Individual levels as above.
Chronic L1 and L2 compression fractures with post changes of kyphoplasty. There is retropulsion at L1 with associated mild/moderate canal stenosis at the superior L1 level, similar to prior.
RIGHT KNEE X-RAY ( PER RADIOLOGIST'S REPORT)
'IMPRESSION:
Diffuse demineralization. No acute fracture or dislocation. 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 Extensive vascular calcifications. Trace suprapatellar joint effusion.'
RIGHT LOWER EXTREMITY ULTRASOUND ( PER RADIOLOGIST'S REPORT)
'IMPRESSION:
Small 3.3 cm fluid collection in the soft tissues anterolateral to the right patella. Diagnostic possibilities are (1) a liquefied hematoma, (2) prepatellar bursitis, or (3) an abscess if there are signs/symptoms of infection.'

Assessment/Plan
# Acute LBP/sacral area pain, with acute gait dysfunction, weakness and fall
# History of L3-L5 spinal fusion surgery
# Severe Spinal Canal Stenosis
Currently on Medrol dose pack by PCP
No bowel or bladder incontinence, no saddle anaesthesia
CT imaging report as above
MRI lumbar and pelvis noted severe canal stenosis.
Neuro surgery recc: 1. Pain control, PT, and completion fo course of steroids. 2. JOSH. 3. Decompression via surgery.
s/p Epidural Steroid Injection by IR on 01/01/24
Lower back pain has improved, however, patient and her family would like to proceed with surgery with neurosurgery -- however surgery is on hold (tentatively scheduled for Monday, January 08, 2024) until her right knee issues are addressed, as
below.
Patient has capacity to make medical decisions per Psychiatry
Of note, CRP negative which rules out inflammatory process
#Right Knee lacerations (with profuse bleeding) after fall.
-Right knee ultrasound shows small 3.3 cm fluid collection -- suspected to be hematoma
-Hold antibiotics as patient is stable -- no need for antibiotics right now
-Consulted orthopedics, appreciate evaluation and recommendations
-Consulted infectious disease, appreciate evaluation and recommendations
-Ordered MRI with and without contrast to rule out abscess that may communicate with the joint -- MRI with anesthesia performed on 01/06/24
-On 01/04/24, I discussed all of the above with orthopedics, infectious disease and neurosurgery
Other chronic medical conditions
# CAD with stents, continue home high-intensity statin, isosorbide mononitrate, metoprolol succinate, and potassium chloride
# GERD on Nexium
# Hypercholesterolemia, continue home statin
# NIDDM on Glipizide, continue Insulin Sliding Scale
# Fibromyalgia, Sjogren's syndrome
# IBS, continue Linzess
# h/o PE, completed course of DOAC for 1 year, was seeing Heme for this
# Urinary retention
# giant cell arteritis
# Hypothyroid s/p Thyroidectomy on LT4
DVT Px: LMWH
Code: Full Code
Anticipated Discharge: > 48 hours
Subjective/Interval History
-
Date of Service: January 06, 2024
Patient was not present in her room at the time of attempted patient encounter. Chart reviewed.
Objective Data
-
Labs:
Laboratory Results
01/06/24
09:09
WBC 9.2
Hgb 13.0
Hct 38.1
Plt Count 217
Sodium 137
Potassium 4.4
Chloride 103
Carbon Dioxide 21 L
BUN 15
Creatinine 0.6
Glucose 148 H
Calcium 10.0
Vital Signs:
Vital Signs
Temp Pulse Resp BP Pulse Ox
97.6 F 77 18 122/61 93
01/06/24 12:20 01/06/24 12:26 01/06/24 12:10 01/06/24 12:26 01/06/24 12:26
I&O
01/05/24 01/06/24 01/07/24
06:59 06:59 06:59
Intake Total 650 / 650 840 / 840
Output Total 400 / 400
Balance 250 / 250 840 / 840
[2024-01-06 15:55] VITALS: BP 148/79
[2024-01-06] MEDS: VITAMIN D3 (cholecalciferol) 50 MCG PO (17:33)
[2024-01-06] MEDS: LOVENOX 40 MG SC (17:34)
[2024-01-06] MEDS: TOPROL XL 25 MG PO (21:50)
[2024-01-06] MEDS: LIPITOR 40 MG PO (21:50)
[2024-01-06] MEDS: ZETIA 10 MG PO (21:50)
[2024-01-06] MEDS: NON-FORMULARY ITEM 6.25 MG PO (22:02)
[2024-01-06] MEDS: NON-FORMULARY ITEM 1 MG PO ×2 (22:03→22:04)
[2024-01-06 22:39] VITALS: BP 166/88
--- NOTE | 2024-01-06 23:38 | PTCARENOTE ---
Pt refused 2200 accucheck.
[2024-01-07] MEDS: ROXICODONE 10 MG PO ×5 (00:04→20:30)
[2024-01-07] MEDS: TYLENOL 650 MG PO ×6 (00:04→23:00)
[2024-01-07] MEDS: SYNTHROID 125 MCG PO (06:30)
[2024-01-07] MEDS: LINZESS 290 MCG PO (06:30)
[2024-01-07 07:10] VITALS: BP 142/65
--- NOTE | 2024-01-07 07:10 | W.PN.UPDATE ---
Update Note
Progress Note Update
Right knee pain unchanged and exam unchanged since yesterday. No signs of infection noted today. Vital signs are stable. MRI of the right knee shows extensive edema anterior/lateral aspect of the knee consistent with knee contusion. No evidence
of acute fracture. Questionable horizontal tear involving lateral meniscus. Mild to moderate chondromalacia present. No evidence of infection. Recommend local wound care for skin tear, weightbearing as tolerated, ice/Tylenol as needed for pain,
gradual increase activities as pain permits, physical therapy and follow-up with orthopedics 2 to 3 weeks to check her progress. Orthopedics to sign off for now.
[2024-01-07] MEDS: FLEXERIL 5 MG PO ×3 (08:22→22:34)
[2024-01-07] MEDS: COLACE 100 MG PO ×2 (08:22→20:30)
[2024-01-07] MEDS: OSCAL CAL 500 500 MG PO (08:23)
[2024-01-07] MEDS: THERAGRAN 1 TABLET PO (08:23)
[2024-01-07] MEDS: ZYLOPRIM 100 MG PO (08:23)
[2024-01-07] MEDS: NEURONTIN 300 MG PO ×3 (08:23→22:36)
[2024-01-07] MEDS: IMDUR (EXTENDED RELEASE) 30 MG PO (08:23)
[2024-01-07] MEDS: GLUCOTROL 5 MG PO (08:23)
[2024-01-07] MEDS: PROTONIX 40 MG PO (08:24)
[2024-01-07] MEDS: RESTASIS 0.05% OPHTHALMIC EMULSION 1 DROPS BOTH EYES ×2 (08:24→20:31)
[2024-01-07] MEDS: NON-FORMULARY ITEM 30 MG PO ×3 (08:24→22:40)
[2024-01-07] MEDS: SENOKOT 17.2 MG PO ×2 (08:24→20:30)
[2024-01-07] MEDS: NON-FORMULARY ITEM 50 MG PO (08:25)
[2024-01-07] MEDS: NON-FORMULARY ITEM 1 UNIT PO ×3 (08:25→22:38)
[2024-01-07] MEDS: NON-FORMULARY ITEM 10 MG PO ×3 (08:26→22:39)
--- NOTE | 2024-01-07 08:53 | WOUNDNOTE ---
WO RN Note: Patient's R knee slightly improved with slightly less erythema, proximal ulcer more pink. R knee wound care done using Vashe wound cleanser to clean, honey gel to distal scabbed knee wound, adaptic, silicone border foam, Spandage
stockinet. Patient ambulates to bathroom with walker and supervision. Sacral and heel skin intact. L heel blanchable mild red. Protective foam applied to heels. Po intake has been greater than 50%. ID and Ortho have seen patient. [place]le air overlay
flat. Suggested switching bed to an air mattress with AUBRIE Mcrae. t/c bed tech Tacho who will bring over an air bed. Patient for lumbar surgery tomorrow. Will follow as needed.
--- NOTE | 2024-01-07 10:36 | W.PN.ID1 ---
Date of Service
Date of Service: January 07, 2024
Today's Communication
Observe off abx.
ID will sign off.
Assessment / Plan
# Right pre-patella lacerations (with profuse bleeding) after fall.
- No overt signs of cellulitis.
Expected to have tania-wound hyperemia from inflammation.
-MRI knee: no abscess
- Continue to observe off abx.
# Lumbar spinal stenosis with refractory severe back pain.
- From ID standpoint, she is cleared for decompression surgery.
# Multiple abx allergies: PCN, levofloxacin, sulfa, Vancomycin all difficulty breathing.
ID will sign off.
#Additional Past Medical History:
DM
CAD s/p stents
GERD
Hypercholesterolemia
giant cell arteritis (left vision loss)
Sjogren's syndrome
Hypothyroidism
IBS
PE/DVT
gout
Fibromyalgia
Thyroidectomy,
Lumbar fusion x2, Lumbar laminectomies x 2 with instrumentation
Right hip nondisplaced fracture status post closed reduction percutaneous pinning
Chief Complaint
-: Other (laceration wound)
Subjective / Review of Systems
Anxious about tomorrow's lumbar surgery. Has many questions.
Vital Signs / Physical Exam
Vital Signs
Vital Signs
Temp Pulse Resp BP Pulse Ox
98.1 F 60 16 142/65 98
01/07/24 07:10 01/07/24 07:10 01/07/24 07:10 01/07/24 07:10 01/07/24 08:34
Physical Exam
Constitutional: No Acute Distress and Comfortable
Gastrointestinal: Soft, Non Tender, Non Distended and Normal Bowel Sounds
Wound: Other (Reviewed today's wound photos: Right knee lacerations dry with eschar, mild surrounding erythema darker)
Objective Data
Lab Data
Lab Results
01/06/24 09:09
01/06/24 09:09
PT 13.7 Sec (11.4-14.6) 01/01/24 06:14
INR 1.05 01/01/24 06:14
Total Bilirubin 0.5 mg/dl (0.2-1.3) 12/26/23 02:40
AST 20 U/L (14-36) 12/26/23 02:40
ALT 18 U/L (0-35) 12/26/23 02:40
Alkaline Phosphatase 69 U/L (38-126) 12/26/23 02:40
C-Reactive Protein < 5.00 mg/L (0.0-10.00) 01/04/24 06:49
Most recent labs reviewed.
Micro Results:
12/27/23 15:38 Urine Culture - Final
Urine NO GROWTH
01/04/24 RLE US: Small 3.3 cm fluid collection in the soft tissues anterolateral to the right patella. Diagnostic possibilities are (1) a liquefied hematoma, (2) prepatellar bursitis, or (3) an abscess if there are signs/symptoms of infection.
01/03/24 Knee XRAY: Diffuse demineralization. No acute fracture or dislocation. 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 Extensive vascular calcifications. Trace suprapatellar joint
effusion.
--- NOTE | 2024-01-07 10:52 | W.PN.HOSP.TC ---
Today's Communication/Plan
-
Spine surgery tentatively for tomorrow
Assessment / Plan
Assessment / Plan
Physical Exam
General: Not in acute distress
HEENT: Normocephalic, Atraumatic
Respiratory: Clear to Auscultation Bilaterally
Cardiac: Regular Rhythm and S1/S2
GI: Soft, Nontender, Nondistended and Normal Bowel Sounds
Skin: Warm and Dry
Musculoskeletal: Right Knee covered in bandage and dressing
Neuro: Awake and Alert
Psych: Calm and Intact Judgement/Insight

CT THORACIC SPINE:
1. SEVERE CHRONIC FRACTURES of the T8 and T9 vertebral bodies with complete vertebral body collapse, severe retropulsion of the posterior cortex into the anterior epidural space, and a severe kyphosis in the mid-lower thoracic spine which appears
unchanged.
2. MODERATE SPINAL CORD COMPRESSION and CENTRAL CANAL STENOSIS at the T8-T9 levels which appears unchanged.
3. Severe bilateral neural foraminal narrowing at T8/T9.
4. Mild multilevel discogenic degenerative disease at the other thoracic levels.
5. Severe discogenic degenerative disease in the lower cervical spine with a disc-osteophyte complex at C5/C6 causing mild spinal cord compression, mild central canal stenosis, and severe right neural foraminal narrowing.
CT LUMBAR SPINE:
1. CHRONIC VERTEBRAL BODY ENDPLATE FRACTURES of L1 and L2 which have been treated with vertebroplasty. Moderate loss of vertebral body height at L1 with retropulsion of the posterior cortex into the anterior epidural space causing MODERATE CENTRAL
CANAL STENOSIS which appears unchanged.
2. MODERATE to SEVERE CENTRAL CANAL STENOSIS at L2/L3 secondary to a large diffuse disc bulge and bilateral facet joint arthrosis. Moderate to severe left neural foraminal narrowing at L2/L3.
3. Previous laminectomies and bilateral posterior instrumentation at L3/L4 and L4/L5.
4. 8.2 mm grade 2 anterolisthesis of L4 on L5 which appears unchanged.'
MRI lumbar/sacral spine:
Postoperative changes of L3-S1 posterior decompression with L3-L5 posterior spinal fusion. There is unchanged grade 1 anterolisthesis of L4 on L5.
Multilevel degenerative disc disease and facet arthropathy. This is most pronounced at L2-L3. There is severe canal stenosis and severe bilateral neuroforaminal narrowing at this level with T2 intermediate signal, favoring large left subarticular
disc extrusion, and bilateral facet arthropathy. Individual levels as above.
Chronic L1 and L2 compression fractures with post changes of kyphoplasty. There is retropulsion at L1 with associated mild/moderate canal stenosis at the superior L1 level, similar to prior.
RIGHT KNEE X-RAY ( PER RADIOLOGIST'S REPORT)
'IMPRESSION:
Diffuse demineralization. No acute fracture or dislocation. 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 Extensive vascular calcifications. Trace suprapatellar joint effusion.'
RIGHT LOWER EXTREMITY ULTRASOUND ( PER RADIOLOGIST'S REPORT)
'IMPRESSION:
Small 3.3 cm fluid collection in the soft tissues anterolateral to the right patella. Diagnostic possibilities are (1) a liquefied hematoma, (2) prepatellar bursitis, or (3) an abscess if there are signs/symptoms of infection.'

Assessment/Plan
# Acute LBP/sacral area pain, with acute gait dysfunction, weakness and fall
# History of L3-L5 spinal fusion surgery
# Severe Spinal Canal Stenosis
# Multiple antibiotic allergies: PCN, levofloxacin, sulfa, Vancomycin -- all with difficulty breathing.
Currently on Medrol dose pack by PCP
No bowel or bladder incontinence, no saddle anaesthesia
CT imaging report as above
MRI lumbar and pelvis noted severe canal stenosis.
Neuro surgery recc: 1. Pain control, PT, and completion fo course of steroids. 2. JOSH. 3. Decompression via surgery.
s/p Epidural Steroid Injection by IR on 01/01/24
Lower back pain has improved, however, patient and her family would like to proceed with surgery with neurosurgery -- surgery tentatively scheduled for 01/08/24
Patient has capacity to make medical decisions per Psychiatry
Of note, CRP negative which rules out inflammatory process
#Right Knee lacerations (with profuse bleeding) after fall.
-Right knee ultrasound showed small 3.3 cm fluid collection -- suspected to be hematoma
-No need for antibiotics right now
-Consulted orthopedics, appreciate evaluation and recommendations
-Consulted infectious disease, appreciate evaluation and recommendations
-MRI or RT knee with and without contrast: no abscess
-On 01/04/24, I discussed all of the above with orthopedics, infectious disease and neurosurgery
Other chronic medical conditions
# CAD with stents, continue home high-intensity statin, isosorbide mononitrate, metoprolol succinate, and potassium chloride
# GERD on Nexium
# Hypercholesterolemia, continue home statin
# NIDDM on Glipizide, continue Insulin Sliding Scale
# Fibromyalgia, Sjogren's syndrome
# IBS, continue Linzess
# h/o PE, completed course of DOAC for 1 year, was seeing Heme for this
# Urinary retention
# giant cell arteritis
# Hypothyroid s/p Thyroidectomy on LT4
DVT PPx: LMWH
Code: Full Code
Anticipated Discharge: > 48 hours
Subjective/Interval History
-
Date of Service: January 07, 2024
Patient was seen and examined. She reported no new symptoms or complaints.
Objective Data
-
Vital Signs:
Vital Signs
Temp Pulse Resp BP Pulse Ox
98.1 F 60 16 142/65 98
01/07/24 07:10 01/07/24 07:10 01/07/24 07:10 01/07/24 07:10 01/07/24 08:34
I&O
01/06/24 01/07/24 01/08/24
06:59 06:59 06:59
Intake Total 840 / 840 240 / 240
Balance 840 / 840 240 / 240
[2024-01-07 11:00] VITALS: BP 140/78
[2024-01-07] MEDS: TYLENOL PO (11:52)
[2024-01-07 15:10] VITALS: BP 141/86
[2024-01-07 15:30] VITALS: BP 141/86; PULSE 93; O2SAT 95
--- NOTE | 2024-01-07 17:39 | PN.NS ---
Subjective
-
Patient seen and examined. Continues to report significant back pain, and bilateral lower extremity weakness.
Physical Exam
-
Exam:
Awake, alert, no apparent distress.
Cranial nerves II through XII are grossly intact.
Motor: 5/5 strength bilaterally in upper extremities and lower extremities.
Kyphotic curvature.
Sensation to light touch intact bilaterally in upper EXTR lower EXTR
Tenderness to palpation over bilateral sacral area. Healed lumbar incision noted over L3-L5.
Head is normocephalic, atraumatic.
Neck is supple.
Breathing nonlabored
Abdomen is not distended
Cardiac: Regular rate
Extremities are warm
MRI of the lumbar spine performed on 12/29/2023 was reviewed. No obvious evidence of STIR signal hyperintensity in the lumbar spine or sacral spine to suggest fracture. Patient has evidence of L3-L5 pedicle based fusion. At L2-L3 there appears to
be significant new spinal stenosis with posterior/dorsal compression due to soft tissue lesion noted on the left more so than the right which causes near complete obliteration of the thecal sac at this level. Differential diagnosis is synovial cyst
versus disc herniation versus less likely infectious process.
Problems
-
Problem Status Onset Code
Falls R29.6
Ambulatory dysfunction R26.2
Back pain M54.9
Assessment / Plan
-
This is an 83-year-old female with a history of L3-L5 spinal fusion surgery, now with sudden onset of back pain. MRI of the lumbar spine reveals severe spinal stenosis at L2-L3 due to dorsal compression from soft tissue lesion.
MRI of the lower extremity negative for infection.
Patient cleared from infectious disease standpoint.
Will make patient n.p.o. after midnight for surgery tomorrow. L2-L3 decompression
Discussed again with patient perioperative course, and all questions and concerns were answered and addressed to her satisfaction.
Today's Communication
-
Discussed with hospital medicine, patient.
[2024-01-07] MEDS: LOVENOX 40 MG SC (17:42)
[2024-01-07] MEDS: VITAMIN D3 (cholecalciferol) 50 MCG PO (17:42)
[2024-01-07 21:27] LABS: Glucose - Point of Care 203 mg/dl (70-99)
[2024-01-07] MEDS: NON-FORMULARY ITEM 6.25 MG PO (22:30)
[2024-01-07] MEDS: ZETIA 10 MG PO (22:36)
[2024-01-07] MEDS: LIPITOR 40 MG PO (22:37)
[2024-01-07] MEDS: TOPROL XL 25 MG PO (22:37)
[2024-01-07 23:43] VITALS: BP 146/75
[2024-01-08] VITALS (12 sets, daily range): BP systolic 112–171; BP diastolic 57–88
[2024-01-08] MEDS: ROXICODONE 10 MG PO ×4 (00:07→22:17)
[2024-01-08] MEDS: TYLENOL 650 MG PO ×3 (04:26→20:29)
[2024-01-08] MEDS: LINZESS 290 MCG PO (05:00)
[2024-01-08] MEDS: SYNTHROID 125 MCG PO (05:01)
[2024-01-08 06:55] LABS: % Basophils 0.6 % (0-2); % Eosinophils 1.5 % (0-6); % Immature Granulocytes 3.6 % (0-0.5); % Lymphocytes 13.7 % (20.5-51.1); % Monocytes 8.6 % (1.7-9.3); Absolute Eosinophils 0.1 10^3/uL (0-0.7); Absolute Immature Granulocytes 0.3 10^3/uL (0-0.05); Absolute Monocytes 0.6 10^3/uL (0.1-0.6); Absolute Neutrophils 5.2 10^3/uL (1.4-6.5); Hematocrit 33.7 % (37.0-47.0); Hemoglobin 11.5 g/dL (12.0-16.0); Mean Corp Hgb Conc. 34.1 g/dL (33.0-37.0); Mean Corpuscular Hgb 31.2 pg (27.0-31.0); Mean Corpuscular Volume 91.3 fL (81.0-99.0); Mean Platelet Volume 9.4 fL (7.4-10.4); Nucleated Red Blood Cells % 0 %; Platelet Count 183 10^3/uL (130-400); Red Blood Cell Count 3.69 10^6/uL (4.20-5.40); White Blood Cell Count 7.2 10^3/uL (4.8-10.8)
[2024-01-08 07:23] LABS: Blood Urea Nitrogen 13 mg/dl (7-17); Calcium 9.5 mg/dl (8.4-10.2); Carbon Dioxide 26 mmol/L (22-30); Chloride 104 mmol/L (98-107); Estimated Creatinine Clearance 54 ml/min; Glucose 115 mg/dl (70-99); Potassium 4.3 mmol/L (3.5-5.1); Sodium 139 mmol/L (135-145); eGFR > 60.00
[2024-01-08 07:50] LABS: Glucose - Point of Care 114 mg/dl (70-99)
--- NOTE | 2024-01-08 09:20 | WOUNDNOTE ---
WOC RN note: Confirmed patient has a [facility] air bed.
[2024-01-08] MEDS: PROTONIX 40 MG PO (09:24)
[2024-01-08] MEDS: NEURONTIN 300 MG PO ×3 (09:24→22:17)
[2024-01-08] MEDS: SENOKOT 17.2 MG PO (09:24)
[2024-01-08] MEDS: ZYLOPRIM 100 MG PO (09:24)
[2024-01-08] MEDS: RESTASIS 0.05% OPHTHALMIC EMULSION 1 DROPS BOTH EYES ×2 (09:25→20:30)
[2024-01-08] MEDS: THERAGRAN 1 TABLET PO (09:25)
[2024-01-08] MEDS: NON-FORMULARY ITEM 1 MG PO ×3 (09:25→09:28)
[2024-01-08] MEDS: OSCAL CAL 500 500 MG PO (09:25)
[2024-01-08] MEDS: NON-FORMULARY ITEM 1 UNIT PO ×2 (09:26→20:33)
[2024-01-08] MEDS: COLACE 100 MG PO (09:28)
[2024-01-08] MEDS: FLEXERIL 5 MG PO ×2 (09:29→22:18)
[2024-01-08] MEDS: IMDUR (EXTENDED RELEASE) 30 MG PO (09:30)
[2024-01-08] MEDS: GLUCOTROL PO (09:40)
[2024-01-08] MEDS: ROXICODONE PO (11:03)
[2024-01-08 11:34] LABS: Glucose - Point of Care 104 mg/dl (70-99)
--- NOTE | 2024-01-08 14:05 | W.PN.HOSP.TC ---
Today's Communication/Plan
-
Surgery today
Assessment / Plan
Assessment / Plan
Physical Exam
General: Not in acute distress
HEENT: Normocephalic, Atraumatic
Respiratory: Clear to Auscultation Bilaterally
Cardiac: Regular Rhythm and S1/S2
GI: Soft, Nontender, Nondistended and Normal Bowel Sounds
Skin: Warm and Dry
Musculoskeletal: Right Knee covered in bandage and dressing
Neuro: Awake and Alert
Psych: Calm and Intact Judgement/Insight

CT THORACIC SPINE:
1. SEVERE CHRONIC FRACTURES of the T8 and T9 vertebral bodies with complete vertebral body collapse, severe retropulsion of the posterior cortex into the anterior epidural space, and a severe kyphosis in the mid-lower thoracic spine which appears
unchanged.
2. MODERATE SPINAL CORD COMPRESSION and CENTRAL CANAL STENOSIS at the T8-T9 levels which appears unchanged.
3. Severe bilateral neural foraminal narrowing at T8/T9.
4. Mild multilevel discogenic degenerative disease at the other thoracic levels.
5. Severe discogenic degenerative disease in the lower cervical spine with a disc-osteophyte complex at C5/C6 causing mild spinal cord compression, mild central canal stenosis, and severe right neural foraminal narrowing.
CT LUMBAR SPINE:
1. CHRONIC VERTEBRAL BODY ENDPLATE FRACTURES of L1 and L2 which have been treated with vertebroplasty. Moderate loss of vertebral body height at L1 with retropulsion of the posterior cortex into the anterior epidural space causing MODERATE CENTRAL
CANAL STENOSIS which appears unchanged.
2. MODERATE to SEVERE CENTRAL CANAL STENOSIS at L2/L3 secondary to a large diffuse disc bulge and bilateral facet joint arthrosis. Moderate to severe left neural foraminal narrowing at L2/L3.
3. Previous laminectomies and bilateral posterior instrumentation at L3/L4 and L4/L5.
4. 8.2 mm grade 2 anterolisthesis of L4 on L5 which appears unchanged.'
MRI lumbar/sacral spine:
Postoperative changes of L3-S1 posterior decompression with L3-L5 posterior spinal fusion. There is unchanged grade 1 anterolisthesis of L4 on L5.
Multilevel degenerative disc disease and facet arthropathy. This is most pronounced at L2-L3. There is severe canal stenosis and severe bilateral neuroforaminal narrowing at this level with T2 intermediate signal, favoring large left subarticular
disc extrusion, and bilateral facet arthropathy. Individual levels as above.
Chronic L1 and L2 compression fractures with post changes of kyphoplasty. There is retropulsion at L1 with associated mild/moderate canal stenosis at the superior L1 level, similar to prior.
RIGHT KNEE X-RAY ( PER RADIOLOGIST'S REPORT)
'IMPRESSION:
Diffuse demineralization. No acute fracture or dislocation. 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 Extensive vascular calcifications. Trace suprapatellar joint effusion.'
RIGHT LOWER EXTREMITY ULTRASOUND ( PER RADIOLOGIST'S REPORT)
'IMPRESSION:
Small 3.3 cm fluid collection in the soft tissues anterolateral to the right patella. Diagnostic possibilities are (1) a liquefied hematoma, (2) prepatellar bursitis, or (3) an abscess if there are signs/symptoms of infection.'

Assessment/Plan
# Acute LBP/sacral area pain, with acute gait dysfunction, weakness and fall
# History of L3-L5 spinal fusion surgery
# Severe Spinal Canal Stenosis
# Multiple antibiotic allergies: PCN, levofloxacin, sulfa, Vancomycin -- all with difficulty breathing.
Currently on Medrol dose pack by PCP
No bowel or bladder incontinence, no saddle anaesthesia
CT imaging report as above
MRI lumbar and pelvis noted severe canal stenosis.
Neuro surgery recc: 1. Pain control, PT, and completion fo course of steroids. 2. JOSH. 3. Decompression via surgery.
s/p Epidural Steroid Injection by IR on 01/01/24
Lower back pain has improved, however, patient and her family would like to proceed with surgery with neurosurgery -- surgery tentatively scheduled for 01/08/24
Patient has capacity to make medical decisions per Psychiatry
Of note, CRP negative which rules out inflammatory process
#Right Knee lacerations (with profuse bleeding) after fall.
-Right knee ultrasound showed small 3.3 cm fluid collection -- suspected to be hematoma
-No need for antibiotics right now
-Consulted orthopedics, appreciate evaluation and recommendations
-Consulted infectious disease, appreciate evaluation and recommendations
-MRI or RT knee with and without contrast: no abscess
-On 01/04/24, I discussed all of the above with orthopedics, infectious disease and neurosurgery
Other chronic medical conditions
# CAD with stents, continue home high-intensity statin, isosorbide mononitrate, metoprolol succinate, and potassium chloride
# GERD on Nexium
# Hypercholesterolemia, continue home statin
# NIDDM on Glipizide, continue Insulin Sliding Scale
# Fibromyalgia, Sjogren's syndrome
# IBS, continue Linzess
# h/o PE, completed course of DOAC for 1 year, was seeing Heme for this
# Urinary retention
# giant cell arteritis
# Hypothyroid s/p Thyroidectomy on LT4
DVT PPx: LMWH
Code: Full Code
Anticipated Discharge: > 48 hours
Subjective/Interval History
-
Date of Service: January 08, 2024
Patient was seen and examined. She denied any new symptoms or complaints.
Objective Data
-
Labs:
Laboratory Results
01/08/24
06:30
WBC 7.2
Hgb 11.5 L
Hct 33.7 L
Plt Count 183
Sodium 139
Potassium 4.3
Chloride 104
Carbon Dioxide 26
BUN 13
Creatinine 0.5 L
Glucose 115 H
Calcium 9.5
Vital Signs:
Vital Signs
Temp Pulse Resp BP Pulse Ox
97.7 F 65 17 137/71 96
01/08/24 07:00 01/08/24 07:00 01/08/24 07:00 01/08/24 07:00 01/08/24 07:00
I&O
01/07/24 01/08/24 01/09/24
06:59 06:59 06:59
Intake Total 240 / 240 900 / 900
Balance 240 / 240 900 / 900
--- NOTE | 2024-01-08 14:54 | OR.RPT ---
Operative Report
Operative Report
Date of surgery: 01/08/2024
Preoperative diagnosis: L2-L3 spinal stenosis
Postoperative diagnosis: Same
Procedure: Left L2-L3 hemilaminectomy for decompression of thecal sac, evacuation of epidural hematoma, resection of synovial cyst
Surgeon: Natacha Posada MD
Dynamics Ax Developer: NEVIN Pandey
Anesthesia: 1. General
2. Local
Anesthesiologist:
Intraoperative findings: Significant for dorsal epidural hematoma, severe facet hypertrophy, ligamentum flavum thickening, causing central canal stenosis. This was superimposed upon with a synovial cyst, as well as extruded disc herniation.
Specimens: Tissue was sent off to pathology for permanent specimen. Additionally, cultures were also taken.
Complications: None
Drains: None
Estimated blood loss: 50 cc
Disposition: Patient was activated and transferred to the PACU, and ultimately to the floor in stable condition.
Indications for the procedure: This is an 83-year-old female with a history of L3-L5 pedicle based fusion years prior, as well as L1, L2 compression fracture, status post kyphoplasty, who presented with sudden onset of back pain, and bilateral lower
extremity radicular pain, and lower extremity weakness. She had an MRI of the lumbar spine that demonstrated severe spinal stenosis at L2-L3 due to dorsal compression from soft tissue. Radiology report felt that this was likely secondary to
extruded disc herniation. Patient was offered surgical decompression versus epidural steroid injection. Initially, she, and family opted to proceed with epidural steroid injection. She had ongoing pain and weakness, and ultimately wished to
proceed with surgical decompression. She underwent preoperative cardiac clearance. I fully discussed with the patient, as well as her , daughter all indications, risks, benefits, alternatives to the procedure which included, with but was
not limited to bleeding, infection, injury to arteries, nerves, veins, CSF leak, failure to improve symptoms, recurrence of symptoms, need for further surgery. She expressed understanding of this, and gave consent to proceed.
Description of the procedure: Patient was seen in the preoperative holding area, and consents were signed. Patient's lumbar spine was marked. She was then brought into the operating room. She was then induced under general endotracheal tube
anesthesia. She was then carefully positioned from the supine position to the prone position onto the Eusebio table. Special care was taken to ensure that all pressure points, including her eyes, chin, bilateral neck, chest, groin, knees were
properly padded. A 1010 drape was placed over the gluteal fold. The lumbosacral spine was then cleaned. Fluoroscopic x-rays were taken to localize the L2-L3 area. This area was marked, and prepped and draped in standard surgical fashion.
After appropriate timeout was obtained, patient received preoperative antibiotics. Local anesthetic was infiltrated to the marked incision. Using a 10 blade, an incision was made through the skin. Dissection was then carried down through the
subcutaneous tissue to the lumbodorsal fascia. Using Bovie electrocautery, an incision was made just lateral to the spinous process and periosteal dissection was then carried down over the lamina of L2, as well as the lamina of L3. Beverly 4
dissector was placed in the interlaminar space, and we confirmed that we were at the L2-L3 level. Sanchez retractors were then placed, and microscope was brought in for appropriate visualization and dissection. Using pituitary rongeurs, soft
tissue was then cleared off from within the interlaminar space. Using the Cerebrex matched head mela, hemilaminectomy was then performed removing the inferior aspect of L2, and the superior aspect of L3. Once ligamentum flavum was encountered,
Kerrison punch rongeurs were utilized to remove the intervening ligamentum flavum. We were able to localize the thecal sac rostrally, and then followed this plane caudally. There was significant adhesions and extruded synovial cyst material, as
well as extruded disc material in the dorsal lateral epidural space. We continued the dissection rostrally. At this point, we also noted that there was evidence of epidural hematoma that self expresses self on the left side at the rostral level of
C2. This was then appropriately evacuated. Once the thecal sac was identified, this plane was then followed caudally and all of the rostral tissue including thickened ligamentum flavum, facet hypertrophy, synovial cyst material, as well as
extruded disc material was excised and removed. We followed this plane completely rostral to the C3 pedicle level. At this point, x-rays were taken and after ensuring that we were completely over the area and caudal to the area where the MRI
demonstrated severe compression. We ultimately elected to close. This was after a Alice dissector was placed into the lateral gutters as well as over to the contralateral side at L2-L3 and confirming that there was satisfactory contralateral
decompression from the left side over to the right side. The wound was then thoroughly irrigated with Betadine containing normal saline irrigation. Meticulous hemostasis was then achieved using surgical hemostatic material, as well as bipolar
electrocautery. The retractors removed. Additional local anesthetic was then infiltrated to the subfascial musculature. At this point the fascia was then reapproximated using interrupted 0 Vicryl sutures. The subcutaneous dilator was then
reapproximated using interrupted 2-0 Vicryl sutures. And lastly, the epidermal/subdermal layers were then reapproximated using interrupted, inverted, 3-0 Vicryl sutures. The skin was then closed using a skin stapler. The wound was then dressed
using Xeroform, Telfa, and Medipore tape. No complications were encountered. All needle sponge counts were correct at the end of the procedure. Patient was then carefully positioned from the prone position to the supine position and extubated.
She was then transferred to the PACU. Her neurological examination remained stable, compared with her preoperative neurological examination. The patient's family was called, and made aware of the intraoperative, as well as tania and postoperative
course expected, to which they expressed understanding.
My veterinary assistant, NEVIN Durán, was necessary for all vital portions of the procedure including dissection, retraction, suctioning, irrigation, and suture management.
[2024-01-08 15:12] LABS: Glucose - Point of Care 102 mg/dl (70-99)
[2024-01-08] MEDS: DILAUDID 0.5 MG IV (16:09)
[2024-01-08] MEDS: NSS 1000 IV (16:09)
[2024-01-08] MEDS: TYLENOL PO ×2 (16:34→18:50)
--- NOTE | 2024-01-08 17:00 | PTCARENOTE ---
Pt received from the PACU via [facility] Air [facility]. Transport was w/o incident. Pt is AAOx3, HRR, lungs are clear, sl decreased. Pt encouraged to cough and deep breathe every hour, pulse ox 93% on 2Lvia nc. VSS, Pt is afebrile. Pt with dressings to b/l
heels, right knee, and new lumbar back dressing which is C/D/I no drainage noted at this time. Pt instructed on plan of care, Pt verbalized understanding of instructions. Call walker is within reach.
[2024-01-08] MEDS: NON-FORMULARY ITEM 30 MG PO ×2 (18:46→20:31)
[2024-01-08] MEDS: VITAMIN D3 (cholecalciferol) 50 MCG PO (18:47)
[2024-01-08] MEDS: NON-FORMULARY ITEM 10 MG PO ×2 (18:48→22:22)
[2024-01-08] MEDS: FLEXERIL PO (18:49)
[2024-01-08] MEDS: NON-FORMULARY ITEM PO (18:50)
[2024-01-08] MEDS: LOVENOX 40 MG SC (18:52)
[2024-01-08] MEDS: SENOKOT PO (20:30)
[2024-01-08] MEDS: COLACE PO (20:30)
[2024-01-08] MEDS: CLEOCIN 50 IV (20:30)
[2024-01-08 21:33] LABS: Glucose - Point of Care 242 mg/dl (70-99)
[2024-01-08] MEDS: ZETIA 10 MG PO (22:17)
[2024-01-08] MEDS: LIPITOR 40 MG PO (22:18)
[2024-01-08] MEDS: TOPROL XL 25 MG PO (22:20)
[2024-01-08] MEDS: NON-FORMULARY ITEM 6.25 MG PO (23:11)
[2024-01-09] MEDS: TYLENOL PO (01:02)
[2024-01-09 02:15] VITALS: BP 116/59
[2024-01-09] MEDS: ROXICODONE 10 MG PO ×4 (03:06→21:14)
[2024-01-09] MEDS: TYLENOL 650 MG PO ×5 (03:08→19:21)
[2024-01-09] MEDS: NSS 1000 IV (03:08)
[2024-01-09] MEDS: CLEOCIN 50 IV ×2 (03:08→11:47)
[2024-01-09] MEDS: LINZESS 290 MCG PO (05:54)
[2024-01-09] MEDS: SYNTHROID 125 MCG PO (05:54)
[2024-01-09 06:15] VITALS: BP 112/62
[2024-01-09 06:38] LABS: % Basophils 0.4 % (0-2); % Eosinophils 1.4 % (0-6); % Immature Granulocytes 1.9 % (0-0.5); % Lymphocytes 7.4 % (20.5-51.1); % Monocytes 8.7 % (1.7-9.3); % Neutrophils 80.2 % (42.2-75.2); Absolute Eosinophils 0.1 10^3/uL (0-0.7); Absolute Immature Granulocytes 0.2 10^3/uL (0-0.05); Absolute Lymphocytes 0.6 10^3/uL (1.2-3.4); Absolute Monocytes 0.7 10^3/uL (0.1-0.6); Absolute Neutrophils 6.4 10^3/uL (1.4-6.5); Hematocrit 29.9 % (37.0-47.0); Hemoglobin 10.3 g/dL (12.0-16.0); Mean Corp Hgb Conc. 34.4 g/dL (33.0-37.0); Mean Corpuscular Hgb 31.7 pg (27.0-31.0); Mean Platelet Volume 9.5 fL (7.4-10.4); Nucleated Red Blood Cells % 0 %; Platelet Count 163 10^3/uL (130-400); Red Blood Cell Count 3.25 10^6/uL (4.20-5.40); Red Cell Dist. Width 14.3 % (11.5-14.5); White Blood Cell Count 7.9 10^3/uL (4.8-10.8)
[2024-01-09 07:01] LABS: Blood Urea Nitrogen 11 mg/dl (7-17); Calcium 8.4 mg/dl (8.4-10.2); Carbon Dioxide 23 mmol/L (22-30); Chloride 108 mmol/L (98-107); Estimated Creatinine Clearance 54 ml/min; Glucose 118 mg/dl (70-99); Potassium 4.1 mmol/L (3.5-5.1); Sodium 141 mmol/L (135-145); eGFR > 60.00
[2024-01-09 07:51] LABS: Glucose - Point of Care 110 mg/dl (70-99)
[2024-01-09 08:05] VITALS: BP 129/59
[2024-01-09] MEDS: IMDUR (EXTENDED RELEASE) 30 MG PO (08:57)
[2024-01-09] MEDS: PROTONIX 40 MG PO (08:57)
[2024-01-09] MEDS: GLUCOTROL 5 MG PO (08:58)
[2024-01-09] MEDS: SENOKOT PO ×2 (08:58→09:12)
[2024-01-09] MEDS: THERAGRAN 1 TABLET PO (08:58)
[2024-01-09] MEDS: ZYLOPRIM 100 MG PO (08:58)
[2024-01-09] MEDS: COLACE PO ×2 (08:59→09:12)
[2024-01-09] MEDS: NON-FORMULARY ITEM 30 MG PO ×3 (08:59→21:09)
[2024-01-09] MEDS: OSCAL CAL 500 500 MG PO (08:59)
[2024-01-09] MEDS: NEURONTIN 300 MG PO ×3 (08:59→21:11)
[2024-01-09] MEDS: NON-FORMULARY ITEM 10 MG PO ×3 (09:00→21:10)
[2024-01-09] MEDS: NON-FORMULARY ITEM 50 MG PO (09:00)
[2024-01-09] MEDS: NON-FORMULARY ITEM 1 UNIT PO ×3 (09:02→21:12)
[2024-01-09] MEDS: RESTASIS 0.05% OPHTHALMIC EMULSION 1 DROPS BOTH EYES ×2 (09:02→19:26)
[2024-01-09] MEDS: FLEXERIL PO ×2 (09:05→23:04)
[2024-01-09] MEDS: ROXICODONE PO (09:05)
--- NOTE | 2024-01-09 10:24 | CM ---
Case management following for discharge planning
Pt for [facility]
Per Patti at [facility] - no bed available today - possibly tomorrow
Will check back in AM for bed availability
Plan - [facility] when bed available/medically ready
[2024-01-09 11:12] VITALS: BP 115/64
[2024-01-09 11:31] LABS: Glucose - Point of Care 227 mg/dl (70-99)
--- NOTE | 2024-01-09 11:39 | PTCARENOTE ---
Pt refusing insulin. Pt educated on hyperglycemia and correlation to infections, Pt verbalized understanding and continues to refuse insulin. Dr Hameed made aware. Care ongoing at this time.
--- NOTE | 2024-01-09 12:23 | PN.NS ---
Subjective
-
Patient seen and examined. Complains of some incisional pain. However, reports that her radiating pain down her legs, and the weakness in her legs has improved.
Physical Exam
-
Exam:
Exam:
Awake, alert, no apparent distress.
Cranial nerves II through XII are grossly intact.
Motor: 5/5 strength bilaterally in upper extremities and lower extremities.
Kyphotic curvature.
Sensation to light touch intact bilaterally in upper EXTR lower EXTR
Lumbar dressing is clean and dry
Head is normocephalic, atraumatic.
Neck is supple.
Breathing nonlabored
Abdomen is not distended
Cardiac: Regular rate
Extremities are warm
Problems
-
Problem Status Onset Code
Falls R29.6
Ambulatory dysfunction R26.2
Back pain M54.9
Assessment / Plan
-
This is an 83-year-old female with a history of L3-L5 spinal fusion surgery, now with sudden onset of back pain. MRI of the lumbar spine reveals severe spinal stenosis at L2-L3 due to dorsal compression from soft tissue lesion.
She is postoperative day 1, status post left L2-L3 hemilaminectomy for decompression, resection of epidural hematoma, synovial cyst, disc herniation.
-- Doing well postoperatively.
--Antibiotics x 3 doses/24 hours postoperatively.
--Okay to mobilize as tolerated.
--Okay for DVT prophylaxis.
--PT/OT
--Pain control
--Patient can be discharged from neurosurgical standpoint. Patient will need to follow-up in approximately 2 weeks for wound check.
Today's Communication
-
Discussed with RN, patient, and hospitalist.
--- NOTE | 2024-01-09 13:47 | W.PN.HOSP.TC ---
Today's Communication/Plan
-
Patient doing well post-op
Appreciate neurosurgery
Pain control
Bowel regimen
Per case management, no SNF/rehab bed available until tomorrow
Assessment / Plan
Assessment / Plan
Physical Exam
General: Not in acute distress
HEENT: Normocephalic, Atraumatic
Respiratory: Clear to Auscultation Bilaterally
Cardiac: Regular Rhythm and S1/S2
GI: Soft, Nontender, Nondistended and Normal Bowel Sounds
Skin: Warm and Dry
Musculoskeletal: Right Knee covered in bandage and dressing
Neuro: Awake and Alert
Psych: Calm and Intact Judgement/Insight

CT THORACIC SPINE:
1. SEVERE CHRONIC FRACTURES of the T8 and T9 vertebral bodies with complete vertebral body collapse, severe retropulsion of the posterior cortex into the anterior epidural space, and a severe kyphosis in the mid-lower thoracic spine which appears
unchanged.
2. MODERATE SPINAL CORD COMPRESSION and CENTRAL CANAL STENOSIS at the T8-T9 levels which appears unchanged.
3. Severe bilateral neural foraminal narrowing at T8/T9.
4. Mild multilevel discogenic degenerative disease at the other thoracic levels.
5. Severe discogenic degenerative disease in the lower cervical spine with a disc-osteophyte complex at C5/C6 causing mild spinal cord compression, mild central canal stenosis, and severe right neural foraminal narrowing.
CT LUMBAR SPINE:
1. CHRONIC VERTEBRAL BODY ENDPLATE FRACTURES of L1 and L2 which have been treated with vertebroplasty. Moderate loss of vertebral body height at L1 with retropulsion of the posterior cortex into the anterior epidural space causing MODERATE CENTRAL
CANAL STENOSIS which appears unchanged.
2. MODERATE to SEVERE CENTRAL CANAL STENOSIS at L2/L3 secondary to a large diffuse disc bulge and bilateral facet joint arthrosis. Moderate to severe left neural foraminal narrowing at L2/L3.
3. Previous laminectomies and bilateral posterior instrumentation at L3/L4 and L4/L5.
4. 8.2 mm grade 2 anterolisthesis of L4 on L5 which appears unchanged.'
MRI lumbar/sacral spine:
Postoperative changes of L3-S1 posterior decompression with L3-L5 posterior spinal fusion. There is unchanged grade 1 anterolisthesis of L4 on L5.
Multilevel degenerative disc disease and facet arthropathy. This is most pronounced at L2-L3. There is severe canal stenosis and severe bilateral neuroforaminal narrowing at this level with T2 intermediate signal, favoring large left subarticular
disc extrusion, and bilateral facet arthropathy. Individual levels as above.
Chronic L1 and L2 compression fractures with post changes of kyphoplasty. There is retropulsion at L1 with associated mild/moderate canal stenosis at the superior L1 level, similar to prior.
RIGHT KNEE X-RAY ( PER RADIOLOGIST'S REPORT)
'IMPRESSION:
Diffuse demineralization. No acute fracture or dislocation. 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 Extensive vascular calcifications. Trace suprapatellar joint effusion.'
RIGHT LOWER EXTREMITY ULTRASOUND ( PER RADIOLOGIST'S REPORT)
'IMPRESSION:
Small 3.3 cm fluid collection in the soft tissues anterolateral to the right patella. Diagnostic possibilities are (1) a liquefied hematoma, (2) prepatellar bursitis, or (3) an abscess if there are signs/symptoms of infection.'

Assessment/Plan
# Acute LBP/sacral area pain, with acute gait dysfunction, weakness and fall status post left L2-L3 hemilaminectomy for decompression of thecal sac, evacuation of epidural hematoma, resection of synovial cyst on 01/08/24
# History of L3-L5 spinal fusion surgery
# Severe Spinal Canal Stenosis
# Multiple antibiotic allergies: PCN, levofloxacin, sulfa, Vancomycin -- all with difficulty breathing.
Currently on Medrol dose pack by PCP
No bowel or bladder incontinence, no saddle anaesthesia
CT imaging report as above
MRI lumbar and pelvis noted severe canal stenosis.
Neuro surgery recc: 1. Pain control, PT, and completion fo course of steroids. 2. JOSH. 3. Decompression via surgery.
s/p Epidural Steroid Injection by IR on 01/01/24
Patient has capacity to make medical decisions per Psychiatry
Of note, CRP negative which rules out inflammatory process
Status post left L2-L3 hemilaminectomy for decompression of thecal sac, evacuation of epidural hematoma, resection of synovial cyst on 01/08/24
#Right Knee lacerations (with profuse bleeding) after fall.
-Right knee ultrasound showed small 3.3 cm fluid collection -- suspected to be hematoma
-No need for antibiotics right now
-Consulted orthopedics, appreciate evaluation and recommendations
-Consulted infectious disease, appreciate evaluation and recommendations
-MRI or RT knee with and without contrast: no abscess
-On 01/04/24, I discussed all of the above with orthopedics, infectious disease and neurosurgery
Other chronic medical conditions
# CAD with stents, continue home high-intensity statin, isosorbide mononitrate, metoprolol succinate, and potassium chloride
# GERD on Nexium
# Hypercholesterolemia, continue home statin
# NIDDM on Glipizide, continue Insulin Sliding Scale
# Fibromyalgia, Sjogren's syndrome
# IBS, continue Linzess
# h/o PE, completed course of DOAC for 1 year, was seeing Heme for this
# Urinary retention
# giant cell arteritis
# Hypothyroid s/p Thyroidectomy on LT4
DVT Prophylaxis: LMWH
Code: Full Code
Anticipated Discharge: Within 24 hours
Subjective/Interval History
-
Date of Service: January 09, 2024
Patient was seen and examined. She was doing well after her surgery, she stated she would like her home Oxycodone resumed.
Objective Data
-
Labs:
Laboratory Results
01/09/24
05:57
WBC 7.9
Hgb 10.3 L
Hct 29.9 L
Plt Count 163
Sodium 141
Potassium 4.1
Chloride 108 H
Carbon Dioxide 23
BUN 11
Creatinine 0.5 L
Glucose 118 H
Calcium 8.4
Vital Signs:
Vital Signs
Temp Pulse Resp BP Pulse Ox
98.6 F 76 16 115/64 95
01/09/24 11:12 01/09/24 11:12 01/09/24 11:12 01/09/24 11:12 01/09/24 11:12
I&O
01/08/24 01/09/24 01/10/24
06:59 06:59 06:59
Intake Total 900 / 900 1660 / 1660
Output Total 475 / 475
Balance 900 / 900 1185 / 1185
[2024-01-09 15:39] VITALS: BP 127/66
[2024-01-09 16:55] LABS: Glucose - Point of Care 204 mg/dl (70-99)
[2024-01-09] MEDS: VITAMIN D3 (cholecalciferol) 50 MCG PO (17:16)
[2024-01-09] MEDS: LOVENOX 40 MG SC (17:17)
[2024-01-09] MEDS: FLEXERIL 5 MG PO (17:17)
[2024-01-09] MEDS: SENOKOT 17.2 MG PO (19:23)
[2024-01-09] MEDS: COLACE 100 MG PO (19:23)
[2024-01-09] MEDS: LIPITOR 40 MG PO (21:11)
[2024-01-09] MEDS: ZETIA 10 MG PO (21:14)
[2024-01-09] MEDS: TOPROL XL 25 MG PO (21:14)
--- NOTE | 2024-01-09 22:00 | PTCARENOTE ---
patient refused to have blood sugar checked.
[2024-01-09] MEDS: NON-FORMULARY ITEM 1 MG PO (23:02)
[2024-01-09 23:36] VITALS: BP 130/67
[2024-01-10] MEDS: TYLENOL PO ×2 (00:07→05:02)
[2024-01-10] MEDS: REFRESH EYE DROPS (PF) 1 DROPS OPHTH (01:53)
[2024-01-10] MEDS: ROXICODONE PO (03:54)
[2024-01-10] MEDS: SYNTHROID 125 MCG PO (05:55)
[2024-01-10] MEDS: LINZESS 290 MCG PO (05:55)
[2024-01-10] MEDS: IMDUR (EXTENDED RELEASE) 30 MG PO (05:55)
[2024-01-10 07:16] VITALS: BP 138/67
[2024-01-10 07:38] LABS: % Basophils 0.6 % (0-2); % Eosinophils 1.4 % (0-6); % Immature Granulocytes 2.2 % (0-0.5); % Lymphocytes 8.5 % (20.5-51.1); % Monocytes 9.1 % (1.7-9.3); % Neutrophils 78.2 % (42.2-75.2); Absolute Eosinophils 0.1 10^3/uL (0-0.7); Absolute Immature Granulocytes 0.2 10^3/uL (0-0.05); Absolute Lymphocytes 0.6 10^3/uL (1.2-3.4); Absolute Monocytes 0.6 10^3/uL (0.1-0.6); Absolute Neutrophils 5.4 10^3/uL (1.4-6.5); Hematocrit 31.1 % (37.0-47.0); Hemoglobin 10.6 g/dL (12.0-16.0); Mean Corp Hgb Conc. 34.1 g/dL (33.0-37.0); Mean Corpuscular Hgb 32.4 pg (27.0-31.0); Mean Corpuscular Volume 95.1 fL (81.0-99.0); Mean Platelet Volume 9.7 fL (7.4-10.4); Nucleated Red Blood Cells % 0 %; Platelet Count 147 10^3/uL (130-400); Red Blood Cell Count 3.27 10^6/uL (4.20-5.40); Red Cell Dist. Width 14.3 % (11.5-14.5); White Blood Cell Count 6.9 10^3/uL (4.8-10.8)
[2024-01-10 08:10] LABS: Blood Urea Nitrogen 9 mg/dl (7-17); Calcium 8.8 mg/dl (8.4-10.2); Carbon Dioxide 21 mmol/L (22-30); Chloride 108 mmol/L (98-107); Estimated Creatinine Clearance 54 ml/min; Glucose 132 mg/dl (70-99); Potassium 4.2 mmol/L (3.5-5.1); Sodium 139 mmol/L (135-145); eGFR > 60.00
[2024-01-10 08:28] LABS: Glucose - Point of Care 120 mg/dl (70-99)
[2024-01-10] MEDS: FLEXERIL PO ×3 (08:28→21:27)
[2024-01-10] MEDS: PROTONIX 40 MG PO (08:29)
[2024-01-10] MEDS: GLUCOTROL 5 MG PO (08:29)
[2024-01-10] MEDS: ZYLOPRIM 100 MG PO (08:29)
[2024-01-10] MEDS: THERAGRAN 1 TABLET PO (08:29)
[2024-01-10] MEDS: SENOKOT 17.2 MG PO (08:29)
[2024-01-10] MEDS: RESTASIS 0.05% OPHTHALMIC EMULSION 1 DROPS BOTH EYES ×2 (08:29→19:26)
[2024-01-10] MEDS: TYLENOL 650 MG PO ×4 (08:30→19:26)
[2024-01-10] MEDS: OSCAL CAL 500 500 MG PO (08:30)
[2024-01-10] MEDS: COLACE 100 MG PO (08:30)
[2024-01-10] MEDS: ROXICODONE 10 MG PO ×4 (08:30→22:30)
[2024-01-10] MEDS: NEURONTIN 300 MG PO ×3 (08:30→21:28)
[2024-01-10] MEDS: NON-FORMULARY ITEM 50 MG PO (08:31)
[2024-01-10] MEDS: NON-FORMULARY ITEM 10 MG PO ×2 (08:31→17:30)
[2024-01-10] MEDS: NON-FORMULARY ITEM 1 UNIT PO ×3 (08:32→22:29)
[2024-01-10] MEDS: NON-FORMULARY ITEM 30 MG PO ×2 (08:32→17:31)
--- NOTE | 2024-01-10 10:43 | CM ---
Case management following for discharge planning
Per Patti at the [facility] - bed not available today
Pt updated at bedside - questions answered
Plan - Transfer to [facility] when bed available
--- NOTE | 2024-01-10 11:27 | PTCARENOTE ---
Pt refusing accuchecks at this time, stated ' i will let you check it once a day'. Care remains ongoing.
--- NOTE | 2024-01-10 11:44 | W.PN.HOSP.TC ---
Today's Communication/Plan
-
Per case management, acute rehab bed not available today but possibly tomorrow
Assessment / Plan
Assessment / Plan
Physical Exam
General: Not in acute distress
HEENT: Normocephalic, Atraumatic
Respiratory: Clear to Auscultation Bilaterally
Cardiac: Regular Rhythm and S1/S2
GI: Soft, Nontender, Nondistended and Normal Bowel Sounds
Skin: Warm and Dry
Musculoskeletal: Right Knee covered in bandage and dressing
Neuro: Awake and Alert
Psych: Calm and Intact Judgement/Insight

CT THORACIC SPINE:
1. SEVERE CHRONIC FRACTURES of the T8 and T9 vertebral bodies with complete vertebral body collapse, severe retropulsion of the posterior cortex into the anterior epidural space, and a severe kyphosis in the mid-lower thoracic spine which appears
unchanged.
2. MODERATE SPINAL CORD COMPRESSION and CENTRAL CANAL STENOSIS at the T8-T9 levels which appears unchanged.
3. Severe bilateral neural foraminal narrowing at T8/T9.
4. Mild multilevel discogenic degenerative disease at the other thoracic levels.
5. Severe discogenic degenerative disease in the lower cervical spine with a disc-osteophyte complex at C5/C6 causing mild spinal cord compression, mild central canal stenosis, and severe right neural foraminal narrowing.
CT LUMBAR SPINE:
1. CHRONIC VERTEBRAL BODY ENDPLATE FRACTURES of L1 and L2 which have been treated with vertebroplasty. Moderate loss of vertebral body height at L1 with retropulsion of the posterior cortex into the anterior epidural space causing MODERATE CENTRAL
CANAL STENOSIS which appears unchanged.
2. MODERATE to SEVERE CENTRAL CANAL STENOSIS at L2/L3 secondary to a large diffuse disc bulge and bilateral facet joint arthrosis. Moderate to severe left neural foraminal narrowing at L2/L3.
3. Previous laminectomies and bilateral posterior instrumentation at L3/L4 and L4/L5.
4. 8.2 mm grade 2 anterolisthesis of L4 on L5 which appears unchanged.'
MRI lumbar/sacral spine:
Postoperative changes of L3-S1 posterior decompression with L3-L5 posterior spinal fusion. There is unchanged grade 1 anterolisthesis of L4 on L5.
Multilevel degenerative disc disease and facet arthropathy. This is most pronounced at L2-L3. There is severe canal stenosis and severe bilateral neuroforaminal narrowing at this level with T2 intermediate signal, favoring large left subarticular
disc extrusion, and bilateral facet arthropathy. Individual levels as above.
Chronic L1 and L2 compression fractures with post changes of kyphoplasty. There is retropulsion at L1 with associated mild/moderate canal stenosis at the superior L1 level, similar to prior.
RIGHT KNEE X-RAY ( PER RADIOLOGIST'S REPORT)
'IMPRESSION:
Diffuse demineralization. No acute fracture or dislocation. 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 Extensive vascular calcifications. Trace suprapatellar joint effusion.'
RIGHT LOWER EXTREMITY ULTRASOUND ( PER RADIOLOGIST'S REPORT)
'IMPRESSION:
Small 3.3 cm fluid collection in the soft tissues anterolateral to the right patella. Diagnostic possibilities are (1) a liquefied hematoma, (2) prepatellar bursitis, or (3) an abscess if there are signs/symptoms of infection.'

Assessment/Plan
# Acute LBP/sacral area pain, with acute gait dysfunction, weakness and fall status post left L2-L3 hemilaminectomy for decompression of thecal sac, evacuation of epidural hematoma, resection of synovial cyst on 01/08/24
# History of L3-L5 spinal fusion surgery
# Severe Spinal Canal Stenosis
# Multiple antibiotic allergies: PCN, levofloxacin, sulfa, Vancomycin -- all with difficulty breathing.
Currently on Medrol dose pack by PCP
No bowel or bladder incontinence, no saddle anaesthesia
CT imaging report as above
MRI lumbar and pelvis noted severe canal stenosis.
Neuro surgery recc: 1. Pain control, PT, and completion fo course of steroids. 2. JOSH. 3. Decompression via surgery.
s/p Epidural Steroid Injection by IR on 01/01/24
Patient has capacity to make medical decisions per Psychiatry
Of note, CRP negative which rules out inflammatory process
Status post left L2-L3 hemilaminectomy for decompression of thecal sac, evacuation of epidural hematoma, resection of synovial cyst on 01/08/24
#Right Knee lacerations (with profuse bleeding) after fall.
-Right knee ultrasound showed small 3.3 cm fluid collection -- suspected to be hematoma
-No need for antibiotics right now
-Consulted orthopedics, appreciate evaluation and recommendations
-Consulted infectious disease, appreciate evaluation and recommendations
-MRI or RT knee with and without contrast: no abscess
-On 01/04/24, I discussed all of the above with orthopedics, infectious disease and neurosurgery
Other chronic medical conditions
# CAD with stents, continue home high-intensity statin, isosorbide mononitrate, metoprolol succinate, and potassium chloride
# GERD on Nexium
# Hypercholesterolemia, continue home statin
# NIDDM on Glipizide, continue Insulin Sliding Scale
# Fibromyalgia, Sjogren's syndrome
# IBS, continue Linzess
# h/o PE, completed course of DOAC for 1 year, was seeing Heme for this
# Urinary retention
# giant cell arteritis
# Hypothyroid s/p Thyroidectomy on LT4
DVT Prophylaxis: LMWH
Code: Full Code
Anticipated Discharge: Within 24 hours
Subjective/Interval History
-
Date of Service: January 10, 2024
Patient was seen and examined. She reported some post-surgical pain but otherwise was without any new, significant symptoms or complaints.
Objective Data
-
Labs:
Laboratory Results
01/10/24
05:50
WBC 6.9
Hgb 10.6 L
Hct 31.1 L
Plt Count 147
Sodium 139
Potassium 4.2
Chloride 108 H
Carbon Dioxide 21 L
BUN 9
Creatinine 0.5 L
Glucose 132 H
Calcium 8.8
Vital Signs:
Vital Signs
Temp Pulse Resp BP Pulse Ox
97.8 F 77 16 138/67 97
01/10/24 07:16 01/10/24 07:16 01/10/24 07:16 01/10/24 07:16 01/10/24 07:16
I&O
01/09/24 01/10/24 01/11/24
06:59 06:59 06:59
Intake Total 1660 / 1660 1250 / 1250 480 / 480
Output Total 475 / 475
Balance 1185 / 1185 1250 / 1250 480 / 480
[2024-01-10 15:06] VITALS: BP 156/87
[2024-01-10] MEDS: VITAMIN D3 (cholecalciferol) 50 MCG PO (17:29)
[2024-01-10] MEDS: LOVENOX 40 MG SC (17:29)
[2024-01-10] MEDS: MILK OF MAGNESIA 30 ML PO (17:30)
[2024-01-10] MEDS: SENOKOT PO (19:26)
[2024-01-10] MEDS: COLACE PO (19:26)
[2024-01-10] MEDS: NON-FORMULARY ITEM 1 MG PO ×2 (21:24→21:25)
[2024-01-10] MEDS: LIPITOR 40 MG PO (21:26)
[2024-01-10] MEDS: ZETIA 10 MG PO (21:26)
--- NOTE | 2024-01-10 21:32 | PTCARENOTE ---
Pt refused HS accucheck. Pt stated 'my fingers are all sore from those needles'. Education provided about diabetes and need for glucose monitoring. Pt stated, 'I only do it once and day'. Assessment ongoing.
[2024-01-10] MEDS: NON-FORMULARY ITEM 6.25 MG PO (22:30)
[2024-01-10] MEDS: TOPROL XL 25 MG PO (22:30)
[2024-01-10 22:45] VITALS: BP 143/80
[2024-01-11] MEDS: TYLENOL PO (00:22)
[2024-01-11] MEDS: TYLENOL 650 MG PO ×6 (03:47→23:03)
[2024-01-11] MEDS: ROXICODONE 10 MG PO ×5 (03:47→23:03)
[2024-01-11] MEDS: IMDUR (EXTENDED RELEASE) 30 MG PO (06:23)
[2024-01-11] MEDS: SYNTHROID 125 MCG PO (06:23)
[2024-01-11] MEDS: LINZESS 290 MCG PO (06:40)
[2024-01-11 06:55] LABS: % Basophils 0.4 % (0-2); % Eosinophils 1.6 % (0-6); % Immature Granulocytes 2.5 % (0-0.5); % Lymphocytes 10.2 % (20.5-51.1); % Neutrophils 76.3 % (42.2-75.2); Absolute Eosinophils 0.1 10^3/uL (0-0.7); Absolute Immature Granulocytes 0.2 10^3/uL (0-0.05); Absolute Lymphocytes 0.7 10^3/uL (1.2-3.4); Absolute Monocytes 0.6 10^3/uL (0.1-0.6); Absolute Neutrophils 5.4 10^3/uL (1.4-6.5); Hematocrit 30.7 % (37.0-47.0); Hemoglobin 10.4 g/dL (12.0-16.0); Mean Corp Hgb Conc. 33.9 g/dL (33.0-37.0); Mean Corpuscular Hgb 31.5 pg (27.0-31.0); Mean Platelet Volume 9.8 fL (7.4-10.4); Nucleated Red Blood Cells % 0 %; Platelet Count 157 10^3/uL (130-400); Red Cell Dist. Width 14.3 % (11.5-14.5); White Blood Cell Count 7.1 10^3/uL (4.8-10.8)
[2024-01-11 07:06] LABS: Glucose - Point of Care 137 mg/dl (70-99)
[2024-01-11 07:28] LABS: Blood Urea Nitrogen 8 mg/dl (7-17); Calcium 8.5 mg/dl (8.4-10.2); Carbon Dioxide 27 mmol/L (22-30); Chloride 106 mmol/L (98-107); Estimated Creatinine Clearance 54 ml/min; Glucose 144 mg/dl (70-99); Potassium 4.4 mmol/L (3.5-5.1); Sodium 139 mmol/L (135-145); eGFR > 60.00
[2024-01-11 07:42] VITALS: BP 125/64
[2024-01-11] MEDS: NON-FORMULARY ITEM 30 MG PO ×2 (08:03→16:25)
[2024-01-11] MEDS: COLACE 100 MG PO ×2 (08:03→20:18)
[2024-01-11] MEDS: NON-FORMULARY ITEM 10 MG PO ×2 (08:04→16:26)
[2024-01-11] MEDS: GLUCOTROL 5 MG PO (08:05)
[2024-01-11] MEDS: NON-FORMULARY ITEM 50 MG PO (08:05)
[2024-01-11] MEDS: FLEXERIL PO ×4 (08:05→22:58)
[2024-01-11] MEDS: NON-FORMULARY ITEM 1 UNIT PO ×3 (08:06→22:59)
[2024-01-11] MEDS: NEURONTIN 300 MG PO ×3 (08:06→21:43)
[2024-01-11] MEDS: RESTASIS 0.05% OPHTHALMIC EMULSION 1 DROPS BOTH EYES ×2 (08:08→20:18)
[2024-01-11] MEDS: ZYLOPRIM 100 MG PO (08:08)
[2024-01-11] MEDS: SENOKOT 17.2 MG PO ×2 (08:08→20:19)
[2024-01-11] MEDS: PROTONIX 40 MG PO (08:08)
[2024-01-11] MEDS: OSCAL CAL 500 500 MG PO (08:11)
[2024-01-11] MEDS: THERAGRAN 1 TABLET PO (08:11)
[2024-01-11 09:15] VITALS: BP 163/78
--- NOTE | 2024-01-11 11:23 | W.PN.HOSP.TC ---
Today's Communication/Plan
-
for dispo
Assessment / Plan
Assessment / Plan
CT THORACIC SPINE:
1. SEVERE CHRONIC FRACTURES of the T8 and T9 vertebral bodies with complete vertebral body collapse, severe retropulsion of the posterior cortex into the anterior epidural space, and a severe kyphosis in the mid-lower thoracic spine which appears
unchanged.
2. MODERATE SPINAL CORD COMPRESSION and CENTRAL CANAL STENOSIS at the T8-T9 levels which appears unchanged.
3. Severe bilateral neural foraminal narrowing at T8/T9.
4. Mild multilevel discogenic degenerative disease at the other thoracic levels.
5. Severe discogenic degenerative disease in the lower cervical spine with a disc-osteophyte complex at C5/C6 causing mild spinal cord compression, mild central canal stenosis, and severe right neural foraminal narrowing.
CT LUMBAR SPINE:
1. CHRONIC VERTEBRAL BODY ENDPLATE FRACTURES of L1 and L2 which have been treated with vertebroplasty. Moderate loss of vertebral body height at L1 with retropulsion of the posterior cortex into the anterior epidural space causing MODERATE CENTRAL
CANAL STENOSIS which appears unchanged.
2. MODERATE to SEVERE CENTRAL CANAL STENOSIS at L2/L3 secondary to a large diffuse disc bulge and bilateral facet joint arthrosis. Moderate to severe left neural foraminal narrowing at L2/L3.
3. Previous laminectomies and bilateral posterior instrumentation at L3/L4 and L4/L5.
4. 8.2 mm grade 2 anterolisthesis of L4 on L5 which appears unchanged.'
MRI lumbar/sacral spine:
Postoperative changes of L3-S1 posterior decompression with L3-L5 posterior spinal fusion. There is unchanged grade 1 anterolisthesis of L4 on L5.
Multilevel degenerative disc disease and facet arthropathy. This is most pronounced at L2-L3. There is severe canal stenosis and severe bilateral neuroforaminal narrowing at this level with T2 intermediate signal, favoring large left subarticular
disc extrusion, and bilateral facet arthropathy. Individual levels as above.
Chronic L1 and L2 compression fractures with post changes of kyphoplasty. There is retropulsion at L1 with associated mild/moderate canal stenosis at the superior L1 level, similar to prior.
RIGHT KNEE X-RAY ( PER RADIOLOGIST'S REPORT)
'IMPRESSION:
Diffuse demineralization. No acute fracture or dislocation. 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 Extensive vascular calcifications. Trace suprapatellar joint effusion.'
RIGHT LOWER EXTREMITY ULTRASOUND ( PER RADIOLOGIST'S REPORT)
'IMPRESSION:
Small 3.3 cm fluid collection in the soft tissues anterolateral to the right patella. Diagnostic possibilities are (1) a liquefied hematoma, (2) prepatellar bursitis, or (3) an abscess if there are signs/symptoms of infection.'
A/P:
# Acute LBP/sacral area pain, with acute gait dysfunction, weakness and fall status post left L2-L3 hemilaminectomy for decompression of thecal sac, evacuation of epidural hematoma, resection of synovial cyst on 01/08/24
# History of L3-L5 spinal fusion surgery
# Severe Spinal Canal Stenosis
# Multiple antibiotic allergies: PCN, levofloxacin, sulfa, Vancomycin -- all with difficulty breathing.
Off Medrol dose pack by PCP
No bowel or bladder incontinence, no saddle anaesthesia
CT imaging report as above
MRI lumbar and pelvis noted severe canal stenosis.
Neuro surgery recc: 1. Pain control, PT, and completion fo course of steroids. 2. JOSH. 3. Decompression via surgery.
s/p Epidural Steroid Injection by IR on 01/01/24
Patient has capacity to make medical decisions per Psychiatry
Of note, CRP negative which rules out inflammatory process
Status post left L2-L3 hemilaminectomy for decompression of thecal sac, evacuation of epidural hematoma, resection of synovial cyst on 01/08/24.
Dispo to SNF when bed available
# Right Knee lacerations (with profuse bleeding) after fall.
Right knee ultrasound showed small 3.3 cm fluid collection, 2/2 hematoma
No need for antibiotics right now
Consulted orthopedics, appreciate evaluation and recommendations
Consulted infectious disease, appreciate evaluation and recommendations
MRI or RT knee with and without contrast: no abscess
Other chronic medical conditions
# CAD with stents, continue home high-intensity statin, isosorbide mononitrate, metoprolol succinate, and potassium chloride
# GERD on Nexium
# Hypercholesterolemia, continue home statin
# NIDDM on Glipizide, continue Insulin Sliding Scale
# Fibromyalgia, Sjogren's syndrome
# IBS, continue Linzess
# h/o PE, completed course of DOAC for 1 year, was seeing Heme for this
# Urinary retention
# giant cell arteritis
# Hypothyroid s/p Thyroidectomy on LT4
DVT Prophylaxis: LMWH
Code: Full Code
Dispo: SNF
Anticipated Discharge: 24 - 48 hours
Subjective/Interval History
-
Date of Service: January 11, 2024
Objective Data
-
Labs:
Laboratory Results
01/11/24
04:26
WBC 7.1
Hgb 10.4 L
Hct 30.7 L
Plt Count 157
Sodium 139
Potassium 4.4
Chloride 106
Carbon Dioxide 27
BUN 8
Creatinine 0.5 L
Glucose 144 H
Calcium 8.5
Vital Signs:
Vital Signs
Temp Pulse Resp BP Pulse Ox
36.5 C 68 14 125/64 95
01/11/24 07:42 01/11/24 07:42 01/11/24 07:42 01/11/24 07:42 01/11/24 08:00
I&O
01/10/24 01/11/24 01/12/24
06:59 06:59 06:59
Intake Total 1250 / 1250 1200 / 1200
Balance 1250 / 1250 1200 / 1200
Review of Systems
-
Musculoskeletal: Reports Other (lower back pain has improved)
Physical Exam
-
General: Well Developed, Well Nourished, No Apparent Distress, Comfortable and Conversant; Negative Respiratory Distress
HEENT: Normocephalic, Atraumatic, Nose Appears Normal and Ears Appear Normal; Negative Oxygen
Respiratory: Clear to Auscultation and Non Labored Respirations; Negative Accessory Resp Muscle Use
Cardiac: Regular Rhythm and S1/S2
GI: Soft, Nontender, Nondistended and Normal Bowel Sounds
Skin: Warm and Dry
Neuro: Awake and Alert
Psych: Calm and Intact Judgement/Insight
Data Reviewed
-
CT Scan: Report Reviewed by me
MRI: Report Reviewed by me, Discussed with Patient and Discussed with Family
Labs: Labs Reviewed by me
--- NOTE | 2024-01-11 11:39 | CM ---
Addendum entered by Nessa Giraldo 01/11/24 16:03:
Spoke with Jessy at [facility] - can accept tomorrow
Will need covid - Team made aware
Updated pts daughter Татьяна
Plan - [facility] tomorrow
Addendum entered by Nessa Giraldo 01/11/24 14:18:
Called Eda at [facility] to check on bed status/referral - no beds available at this time
Called and LM at [facility] - check bed status/referral
Original Note:
Case management following for discharge planning
Spoke with Patti at [facility] - no beds today. unsure of when bed will be available
Spoke with pts monet Vaz - [phone]. Aware of bed status thru Patti. Requesting referrals be made to [facility] - first choice and [facility]
Referrals sent in Care Port
Message sent to Brittney at [facility]
Plan - SNF when bed obtained
--- NOTE | 2024-01-11 12:31 | PN.NS ---
Subjective
-
Patient seen and examined. Reports significant improvement in lower extremity symptoms. Ambulating with physical therapy. She reports that her legs do not 'buckle as they were prior to surgery'
Physical Exam
-
Exam:
Exam:
Exam:
Awake, alert, no apparent distress.
Cranial nerves II through XII are grossly intact.
Motor: 5/5 strength bilaterally in upper extremities and lower extremities.
Kyphotic curvature.
Sensation to light touch intact bilaterally in upper EXTR lower EXTR
Lumbar dressing is clean and dry
Head is normocephalic, atraumatic.
Neck is supple.
Breathing nonlabored
Abdomen is not distended
Cardiac: Regular rate
Extremities are warm
Problems
-
Problem Status Onset Code
Falls R29.6
Ambulatory dysfunction R26.2
Back pain M54.9
Assessment / Plan
-
This is an 83-year-old female with a history of L3-L5 spinal fusion surgery, now with sudden onset of back pain. MRI of the lumbar spine reveals severe spinal stenosis at L2-L3 due to dorsal compression from soft tissue lesion.
She is postoperative day 3, status post left L2-L3 hemilaminectomy for decompression, resection of epidural hematoma, synovial cyst, disc herniation.
-- Doing well postoperatively.
--Okay to mobilize as tolerated.
--Okay for DVT prophylaxis.
--PT/OT
--Pain control
--Patient can be discharged from neurosurgical standpoint. Patient will need to follow-up in approximately 2 weeks for wound check.
Today's Communication
-
Discussed with patient.
[2024-01-11 12:36] VITALS: BP 163/78; PULSE 73; O2SAT 98
[2024-01-11 12:42] LABS: Glucose - Point of Care 182 mg/dl (70-99)
[2024-01-11] MEDS: DULCOLAX 10 MG RECTAL (14:31)
[2024-01-11 14:55] VITALS: BP 124/63
[2024-01-11] MEDS: LOVENOX 40 MG SC (17:05)
[2024-01-11] MEDS: VITAMIN D3 (cholecalciferol) 50 MCG PO (17:05)
[2024-01-11] MEDS: LIPITOR 40 MG PO (21:43)
[2024-01-11] MEDS: ZETIA 10 MG PO (21:43)
[2024-01-11] MEDS: NON-FORMULARY ITEM 1 MG PO ×3 (21:44→23:03)
[2024-01-11] MEDS: TOPROL XL 25 MG PO (22:59)
[2024-01-11 23:33] VITALS: BP 128/68
[2024-01-12] MEDS: ROXICODONE 10 MG PO ×2 (04:36→09:55)
[2024-01-12] MEDS: TYLENOL 650 MG PO ×3 (04:36→12:19)
[2024-01-12] MEDS: IMDUR (EXTENDED RELEASE) 30 MG PO (06:13)
[2024-01-12] MEDS: SYNTHROID 125 MCG PO (06:13)
[2024-01-12] MEDS: LINZESS 290 MCG PO (06:13)
[2024-01-12 07:10] VITALS: BP 131/66
[2024-01-12 07:38] LABS: Glucose - Point of Care 143 mg/dl (70-99)
[2024-01-12] MEDS: FLEXERIL PO (07:44)
[2024-01-12] MEDS: NEURONTIN 300 MG PO (08:34)
[2024-01-12] MEDS: COLACE 100 MG PO (08:35)
[2024-01-12] MEDS: PROTONIX 40 MG PO (08:35)
[2024-01-12] MEDS: RESTASIS 0.05% OPHTHALMIC EMULSION 1 DROPS BOTH EYES (08:36)
[2024-01-12] MEDS: SENOKOT PO (08:36)
[2024-01-12] MEDS: ZYLOPRIM 100 MG PO (08:36)
[2024-01-12] MEDS: OSCAL CAL 500 500 MG PO (08:37)
[2024-01-12] MEDS: NON-FORMULARY ITEM 30 MG PO (08:37)
[2024-01-12] MEDS: NON-FORMULARY ITEM 50 MG PO (08:37)
[2024-01-12] MEDS: THERAGRAN 1 TABLET PO (08:37)
[2024-01-12] MEDS: NON-FORMULARY ITEM 10 MG PO (08:38)
[2024-01-12] MEDS: NON-FORMULARY ITEM 1 UNIT PO (08:38)
[2024-01-12] MEDS: GLUCOTROL 5 MG PO (08:39)
[2024-01-12 09:01] LABS: COVID-19 Antigen Negative (Negative)
--- NOTE | 2024-01-12 09:09 | W.PN.HOSP.TC ---
Addendum entered and electronically signed by Mary Ellen Everett MD 01/12/24 09:49:
total DC time 35 min
Original Note:
Today's Communication/Plan
-
for SNF today
Assessment / Plan
Assessment / Plan
CT THORACIC SPINE:
1. SEVERE CHRONIC FRACTURES of the T8 and T9 vertebral bodies with complete vertebral body collapse, severe retropulsion of the posterior cortex into the anterior epidural space, and a severe kyphosis in the mid-lower thoracic spine which appears
unchanged.
2. MODERATE SPINAL CORD COMPRESSION and CENTRAL CANAL STENOSIS at the T8-T9 levels which appears unchanged.
3. Severe bilateral neural foraminal narrowing at T8/T9.
4. Mild multilevel discogenic degenerative disease at the other thoracic levels.
5. Severe discogenic degenerative disease in the lower cervical spine with a disc-osteophyte complex at C5/C6 causing mild spinal cord compression, mild central canal stenosis, and severe right neural foraminal narrowing.
CT LUMBAR SPINE:
1. CHRONIC VERTEBRAL BODY ENDPLATE FRACTURES of L1 and L2 which have been treated with vertebroplasty. Moderate loss of vertebral body height at L1 with retropulsion of the posterior cortex into the anterior epidural space causing MODERATE CENTRAL
CANAL STENOSIS which appears unchanged.
2. MODERATE to SEVERE CENTRAL CANAL STENOSIS at L2/L3 secondary to a large diffuse disc bulge and bilateral facet joint arthrosis. Moderate to severe left neural foraminal narrowing at L2/L3.
3. Previous laminectomies and bilateral posterior instrumentation at L3/L4 and L4/L5.
4. 8.2 mm grade 2 anterolisthesis of L4 on L5 which appears unchanged.'
MRI lumbar/sacral spine:
Postoperative changes of L3-S1 posterior decompression with L3-L5 posterior spinal fusion. There is unchanged grade 1 anterolisthesis of L4 on L5.
Multilevel degenerative disc disease and facet arthropathy. This is most pronounced at L2-L3. There is severe canal stenosis and severe bilateral neuroforaminal narrowing at this level with T2 intermediate signal, favoring large left subarticular
disc extrusion, and bilateral facet arthropathy. Individual levels as above.
Chronic L1 and L2 compression fractures with post changes of kyphoplasty. There is retropulsion at L1 with associated mild/moderate canal stenosis at the superior L1 level, similar to prior.
RIGHT KNEE X-RAY ( PER RADIOLOGIST'S REPORT)
'IMPRESSION:
Diffuse demineralization. No acute fracture or dislocation. 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 Extensive vascular calcifications. Trace suprapatellar joint effusion.'
RIGHT LOWER EXTREMITY ULTRASOUND ( PER RADIOLOGIST'S REPORT)
'IMPRESSION:
Small 3.3 cm fluid collection in the soft tissues anterolateral to the right patella. Diagnostic possibilities are (1) a liquefied hematoma, (2) prepatellar bursitis, or (3) an abscess if there are signs/symptoms of infection.'
A/P:
# Acute LBP/sacral area pain, with acute gait dysfunction, weakness and fall status post left L2-L3 hemilaminectomy for decompression of thecal sac, evacuation of epidural hematoma, resection of synovial cyst on 01/08/24
# History of L3-L5 spinal fusion surgery
# Severe Spinal Canal Stenosis
# Multiple antibiotic allergies: PCN, levofloxacin, sulfa, Vancomycin -- all with difficulty breathing.
Off Medrol dose pack by PCP
No bowel or bladder incontinence, no saddle anaesthesia
CT imaging report as above
MRI lumbar and pelvis noted severe canal stenosis.
Neuro surgery recc: 1. Pain control, PT, and completion fo course of steroids. 2. JOSH. 3. Decompression via surgery.
s/p Epidural Steroid Injection by IR on 01/01/24
Patient has capacity to make medical decisions per Psychiatry
Of note, CRP negative which rules out inflammatory process
Status post left L2-L3 hemilaminectomy for decompression of thecal sac, evacuation of epidural hematoma, resection of synovial cyst on 01/08/24.
Dispo to SNF when bed available
# Right Knee lacerations (with profuse bleeding) after fall.
Right knee ultrasound showed small 3.3 cm fluid collection, 2/2 hematoma
No need for antibiotics right now
Consulted orthopedics, appreciate evaluation and recommendations
Consulted infectious disease, appreciate evaluation and recommendations
MRI or RT knee with and without contrast: no abscess
Other chronic medical conditions
# CAD with stents, continue home high-intensity statin, isosorbide mononitrate, metoprolol succinate, and potassium chloride
# GERD on Nexium
# Hypercholesterolemia, continue home statin
# NIDDM on Glipizide, continue Insulin Sliding Scale
# Fibromyalgia, Sjogren's syndrome
# IBS, continue Linzess
# h/o PE, completed course of DOAC for 1 year, was seeing Heme for this
# Urinary retention
# giant cell arteritis
# Hypothyroid s/p Thyroidectomy on LT4
DVT Prophylaxis: LMWH
Code: Full Code
Dispo: SNF
updated on the phone
DW CM
Anticipated Discharge: Today
Subjective/Interval History
-
Date of Service: January 12, 2024
Objective Data
-
Vital Signs:
Vital Signs
Temp Pulse Resp BP Pulse Ox
36.4 C 67 16 131/66 98
01/12/24 07:10 01/12/24 07:10 01/12/24 07:10 01/12/24 07:10 01/12/24 07:10
I&O
01/11/24 01/12/24 01/13/24
06:59 06:59 06:59
Intake Total 1200 / 1200 480 / 480
Balance 1200 / 1200 480 / 480
Review of Systems
-
Musculoskeletal: Reports Other (lower back pain has improved)
Physical Exam
-
General: Well Developed, Well Nourished, No Apparent Distress, Comfortable and Conversant; Negative Respiratory Distress
HEENT: Normocephalic, Atraumatic, Nose Appears Normal and Ears Appear Normal; Negative Oxygen
Respiratory: Clear to Auscultation and Non Labored Respirations; Negative Accessory Resp Muscle Use
Cardiac: Regular Rhythm and S1/S2
GI: Soft, Nontender, Nondistended and Normal Bowel Sounds
Skin: Warm and Dry
Neuro: Awake and Alert
Psych: Calm and Intact Judgement/Insight
Data Reviewed
-
CT Scan: Report Reviewed by me
MRI: Report Reviewed by me, Discussed with Patient and Discussed with Family
Labs: Labs Reviewed by me
--- NOTE | 2024-01-12 09:37 | W.DCSUMMARY ---
Discharge Summary
Discharge Data
Date of Admission: 12/30/23
Date of Discharge: 01/12/24
-
Pending Results: No
Hospital Course
Principal Diagnosis:
Acute on chronic lower back pain with gait dysfunction/weakness/fall, due to severe canal stenosis
Right Knee lacerations after fall.
Chronic Diagnoses:�
History of L3-L5 spinal fusion surgery
Severe Spinal Canal Stenosis
Coronary artery disease with stents
Gastroesophageal reflux disease on Nexium
Hypercholesterolemia
Vvg-[id number] diabetes on glipizide
Fibromyalgia
Sjogren's syndrome
Irritable bowel syndrome
History of pulmonary embolism, completed course of anticoagulation for 1 year
Urinary retention
Giant cell arteritis
Hypothyroidism status post Thyroidectomy on Synthroid
Consultations:�
Neurosurgery
Orthopedic
Infectious disease
Procedures:�
Left L2-L3 hemilaminectomy for decompression of thecal sac, evacuation of epidural hematoma, resection of synovial cyst on 01/08/24.
Clinical course:�
This is a 83-year-old female, with past medical history as stated above, who presented with acute on chronic lower back pain.
Problem 1:
Acute on chronic lower back pain with gait dysfunction/weakness/fall, due to severe canal stenosis.
She was prescribed Medrol pack by her PCP which she completed during her hospital stay.
The patient's MRI lumbar and pelvis noted severe canal stenosis.
She underwent left L2-L3 hemilaminectomy for decompression of thecal sac, evacuation of epidural hematoma, resection of synovial cyst on 01/08/24.
This procedure has significantly improved her pain.
She was discharged to SNF per PT OT recommendation.
Problem 2:
Right Knee lacerations after fall.
Her right knee ultrasound showed small 3.3 cm fluid collection due to hematoma.
She was seen by infectious disease and orthopedic for this.
There is no need for antibiotic treatment given there is no evidence of joint infection.
As for the rest of her medical problems, they were stable during her hospital stay.
Discharge Plan
-
Patient Disposition: Jail/SNF
Discharge Diagnosis/Procedures: Acute lower back pain/sacral area pain, with acute gait dysfunction, weakness and fall status post left L2-L3 hemilaminectomy for decompression of thecal sac, evacuation of epidural hematoma, resection of synovial
cyst on 01/08/24
Condition: Fair
Diet: As tolerated
Activity: As tolerated
Driving Restrictions: Not until seen by your Dr
Wound Care: Wound Care Instructions
01/04/24 R knee wounds-clean with Vashe wound cleanser or saline, honey gel as needed for necrotic tissue, adaptic, cover with ABD pad, Kerlix/spandage or cover with silicone border foam dressing, change daily and as needed for drainage. Remove
steristrips if have not fallen off within 10 days.
Elevate heels off bed with pillow/s
Pressure redistributing chair cushion (i.e. Air chair cushion).
Evaluate for an air mattress.
Follow up with orthopedic surgeon.
Follow up at wound care center call for an appointment.
Instructions: Laminectomy (DC)
Referrals:
Jacob Rivas DO [Family Provider] - in less than 1 week
Natacha Posada MD [Active] - (Follow up in [address] Posada for wound check and staple removal. )
Prescriptions:
New
docusate sodium 100 mg Capsule
100 mg PO BID Qty: 60 0RF
Continued
cevimeline [Evoxac] 30 MG capsule
30 mg PO TID
gabapentin 300 MG capsule
300 mg PO TID
cyclosporine [Restasis] 10 DROPS dropperette
1 drp BOTH EYES BID
atorvastatin 20 MG tablet
40 mg PO HS
metoprolol succinate 25 MG tablet extended release 24 hr
25 mg PO HS
cholecalciferol (vitamin D3) 2,000 UNITS tablet
2,000 units PO QPM
glipizide 5 MG tablet
5 mg PO DAILY
potassium chloride 10 MEQ capsule, extended release
10 meq PO TID
allopurinol 100 MG tablet
100 mg PO DAILY
Domperidone
10 mg PO TID
Patient Comments:
07/26/23 [facility]
isosorbide mononitrate 30 MG tablet extended release 24 hr
30 mg PO DAILY@0700
Patient Comments:
pt not sure of dosage
ezetimibe [Zetia] 10 MG tablet
10 mg PO HS
Adults Multivitamin 1 EACH tablet
1 ea PO DAILY
polyethylene glycol 3350 [Miralax] 17 gram Powder In Packet
17 g PO DAILYPRN PRN (Reason: constipation)
therapeutic multivitamin Tablet
1 tab PO DAILY
levothyroxine [Synthroid] 125 mcg Tablet
125 mcg PO DAILY
mirabegron [Myrbetriq] 50 mg Tablet Extended Release 24 Hr
50 mg PO DAILY
calcium carbonate 500 mg calcium (1,250 mg) Tablet
500 mg PO DAILY
esomeprazole magnesium [Nexium] 40 mg Capsule,Delayed Release(Dr/Ec)
40 mg PO DAILY
Linzess 290 mcg Capsule
290 mcg PO DAILY
Tylenol
1,000 mg PO TID PRN (Reason: pain)
zolpidem [Ambien CR] 6.25 mg Tablet,Ext Release Multiphase
6.25 mg PO HS Qty: 2 0RF
oxycodone 10 mg Tablet
10 mg PO Q5H Qty: 5 0RF
Discharge Orders:
Discharge Patient (As Directed); Ordered 01/12/24
Ordered By: Mary Ellen Everett
Discharge Date and Time
Print Language: ZIMBABWEAN
--- NOTE | 2024-01-12 11:43 | CM ---
Addendum entered by Eri Robles 01/12/24 12:13:
Transport 1430- pt aware
Call to spouse/Jay per pt request [phone]
Original Note:
CM reviewed chart and noted dc order
Confirmed SNF bed at [facility] [place]
IMM verbally completed with pt bedside
Copy provided
Medical necessity and transport forms on chart
COVID completed
Discharge Disposition- [facility] [place] SNF via BLS
Phone- [phone] Fax- [phone]
Please include copy of COVID results with dc paperwork to SNF
[2024-01-12 12:25] VITALS: BP 137/74
[2024-01-12 12:28] LABS: Glucose - Point of Care 163 mg/dl (70-99)
== END 2024-01-12 15:00 | DRG 516 ==
LOC: 2 SOUTH 09:15
PROVIDERS: Clinical Nurse Specialist Family Health; Hospitalist; Radiology Diagnostic Radiology; ADMITTING PHYSICIAN Internal Medicine; ATTENDING PHYSICIAN Internal Medicine; CONSULT PHYSICIAN Internal Medicine Cardiovascular Disease; CONSULT PHYSICIAN Internal Medicine Infectious Disease; CONSULT PHYSICIAN Orthopaedic Surgery; EMERGENCY PHYSICIAN Emergency Medicine; FAMILY PHYSICIAN Family Medicine; OTHER PHYSICIAN Neurological Surgery; OTHER PHYSICIAN Psychiatry & Neurology Psychiatry
PROC: 01NB0ZZ Release Lumbar Nerve, Open Approach (ICD-10-PCS; 2024-01-08)
PROC: 00CU0ZZ Extirpation of Matter from Spinal Canal, Open Approach (ICD-10-PCS; 2024-01-08)
PROC: 3E0R33Z Introduction of Anti-inflammatory into Spinal Canal, Percutaneous Approach (ICD-10-PCS; 2024-01-08)
PROC: 3E0R3BZ Introduction of Anesthetic Agent into Spinal Canal, Percutaneous Approach (ICD-10-PCS; 2024-01-08)
DX: M48.061 Spinal stenosis, lumbar region without neurogenic claudication (principal); J98.11 Atelectasis; M71.38 Other bursal cyst, other site; Z75.1 Person awaiting admission to adequate facility elsewhere; M31.6 Other giant cell arteritis; E11.9 Type 2 diabetes mellitus without complications; M43.20 Fusion of spine, site unspecified
CPT/HCPCS: 88304; 88307; 88311; 62323; 72100; 72128; 72131; 72148; 72195; 73564; 73718; 76000; 76882; 80048; 80053; 81003; 81015; 82962; 83036; 83735; 85025; 85027; 85610; 86140; 87070; 87075; 87086; 87205; 87811; 93005; 97110; 97116; 97167; 97530; 97535; 99285

== ENCOUNTER 2024-03-23 12:32 | Emergency (ER) | payer MEDICARE, OTHER, SELFPAY ==
[2024-03-23] VITALS (7 sets, daily range): BP systolic 147–181; BP diastolic 71–101
--- NOTE | 2024-03-23 13:27 | ED.GENMED ---
History of Present Illness
<Acacia Celeste PA-C - Last Filed: 03/23/24 18:31>
General
Chief Complaint: Abdominal Pain
Source: patient
Exam Limitations: none
Time Seen by Provider: 03/23/24 13:13
Nursing documentation reviewed up to this point in time: agreed with
History of Present Illness
History of Present Illness:
This is an 83 y/o female with a past medical history of GERD, IBS, gastroparesis, diabetes presents to the emergency department today with concerns of abdominal pain for the past 2 weeks. Patient reports that she feels the pain all over her abdomen
but seems to be worse in the epigastric region. She has never had pain like this before. She did have a lot of nausea yesterday but has not had any vomiting. She denies any new constipation or diarrhea, burning with urination, hematuria, flank
pain. She has had past abdominal surgeries of C-sections and has had her appendix out. She is a patient of Dr. [facility] and is requesting to see him today. She notes that the pain will occasionally radiate into her chest.
She was seen by her pain management doctor today for a routine follow up appointment when she was advised to report to the emergency department in light of her abdominal pain.
Past History
<TAWANDA Bell Last Filed: 03/23/24 18:31>
Past History
ED Past Medical History: CAD, Cancer (Skin CA), Fibromyalgia, GERD, Hypercholesterolemia, NIDDM, Other ( Sjogren's syndrome, back pain, Numbness arms and legs. Compression fractures, PE/DVT, IBS, Gastroparesis, Anemia, Stroke Left eye) and Other
(Urinary retention, giant cell arteritis)
ED Past Surgical History: Appendectomy, Cardiac (Coronary Stents), (X 2), Orthopedic (Spinal fusion X 2, Right rotator cuff, ) and Other (Thyroidectomy, Cataracts, Left lumpectomy)
Social History
Tobacco: Non-smoker
Alcohol: None
Drug: None
Personal:
Living: with family
Employment: Retired
Family History
Family History: Other (Noncontributory)
Review of Systems
<Acacia Celeste PA-C - Last Filed: 03/23/24 18:31>
Review of Systems
All Other Systems: ROS reviewed and negative except as documented in HPI and ROS
Phy Exam
<Acacia Celeste PA-C - Last Filed: 03/23/24 18:31>
Physical Exam
Physical Exam:
General: Patient is well appearing and in no acute distress; non-toxic
Skin: Warm and dry, no rashes or lesions
Head: Normocephalic, atraumatic
Eyes: Sclera non-icteric. EOMs intact. PERRLA.
Cardiac: Regular rate and rhythm, no murmurs
Pulm: Normal respiratory effort, no wheezes, rales, rhonchi
Abdomen: Diffuse abdominal tenderness to palpation, no palpable masses, abdomen tympanic to percussion.
Neuro: CN II-XII intact, no focal neurologic deficits.
Psychiatric: Appropriate mood and affect.
Course
<Acacia Celeste PA-C - Last Filed: 03/23/24 18:31>
Orders/Labs/Results
Orders:
Orders
03/23/24 13:27
Electrocardiogram (*1) Urgent
Reason for Study: Abdominal Pain
EKG- Treatment ONCE
03/23/24 13:38
Complete Blood Count/With Diff Urgent
Comprehensive Metabolic Panel Urgent
Lipase Urgent
03/23/24 14:06
Urinalysis Reflex To Culture Urgent
Date Specimen was Collected: 03/23/24
Time Specimen was Collected: 14:03
Urine Microscopic Reflex Cult Urgent
Urine Culture Urgent
TAPAN Source: U
Specimen Description:
Date Specimen was Collected: 03/23/24
Time Specimen was Collected: 14:03
03/23/24 14:26
CT Abd/pel (oral only)-[facility] Only Urgent
Comment:
Reason For Exam: epigastric pain
Iohexol [Omnipaque] See Protocol PO NOW STA
Abnormal Lab Results
03/23/24 03/23/24
13:38 14:06
MCH 31.6 H pg
(27.0-31.0)
MCHC 32.5 L g/dL
(33.0-37.0)
Abs Immat Gran (auto) 0.1 H 10^3/uL
(0-0.05)
Absolute Lymphs (auto) 1.1 L 10^3/uL
(1.2-3.4)
Immature Gran % 0.7 H %
(0-0.5)
Lymphocytes % 15.4 L %
(20.5-51.1)
Glucose 109 H mg/dl
(70-99)
Leukocyte Esterase Rfl 1+ A
(Negative)
Urine RBC 7-10 A /HPF
(0-2)
Urine WBC (Reflex) 26-30 A /HPF
(0-5)
Urine Bacteria (Reflex) Few A
(Negative)
03/23/24 13:38
03/23/24 13:38
Vital Signs
Initial and Last Documented VS:
Initial Vital Signs
Temp Pulse Resp BP Pulse Ox
98.1 F 82 16 147/83 98
03/23/24 12:39 03/23/24 12:39 03/23/24 12:39 03/23/24 12:39 03/23/24 12:39
Last Documented Vital Signs
Temp Pulse Resp BP Pulse Ox
98.1 F 91 16 164/101 97
03/23/24 12:39 03/23/24 19:00 03/23/24 12:39 03/23/24 18:00 03/23/24 18:15
<Allen Sotelo MD - Last Filed: 03/23/24 19:44>
Orders/Labs/Results
Orders:
Orders
03/23/24 13:27
Electrocardiogram (*1) Urgent
Reason for Study: Abdominal Pain
EKG- Treatment ONCE
03/23/24 13:38
Complete Blood Count/With Diff Urgent
Comprehensive Metabolic Panel Urgent
Lipase Urgent
03/23/24 14:06
Urinalysis Reflex To Culture Urgent
Date Specimen was Collected: 03/23/24
Time Specimen was Collected: 14:03
Urine Microscopic Reflex Cult Urgent
Urine Culture Urgent
TAPAN Source: U
Specimen Description:
Date Specimen was Collected: 03/23/24
Time Specimen was Collected: 14:03
03/23/24 14:26
CT Abd/pel (oral only)-[facility] Only Urgent
Comment:
Reason For Exam: epigastric pain
Iohexol [Omnipaque] See Protocol PO NOW STA
Abnormal Lab Results
03/23/24 03/23/24
13:38 14:06
MCH 31.6 H pg
(27.0-31.0)
MCHC 32.5 L g/dL
(33.0-37.0)
Abs Immat Gran (auto) 0.1 H 10^3/uL
(0-0.05)
Absolute Lymphs (auto) 1.1 L 10^3/uL
(1.2-3.4)
Immature Gran % 0.7 H %
(0-0.5)
Lymphocytes % 15.4 L %
(20.5-51.1)
Glucose 109 H mg/dl
(70-99)
Leukocyte Esterase Rfl 1+ A
(Negative)
Urine RBC 7-10 A /HPF
(0-2)
Urine WBC (Reflex) 26-30 A /HPF
(0-5)
Urine Bacteria (Reflex) Few A
(Negative)
03/23/24 13:38
03/23/24 13:38
Vital Signs
Initial and Last Documented VS:
Initial Vital Signs
Temp Pulse Resp BP Pulse Ox
98.1 F 82 16 147/83 98
03/23/24 12:39 03/23/24 12:39 03/23/24 12:39 03/23/24 12:39 03/23/24 12:39
Last Documented Vital Signs
Temp Pulse Resp BP Pulse Ox
98.1 F 91 16 164/101 97
03/23/24 12:39 03/23/24 19:00 03/23/24 12:39 03/23/24 18:00 03/23/24 18:15
<Acacia Celeste PA-C - Last Filed: 03/23/24 18:31>
MDM/Problems Addressed
Differential Diagnosis Includes:
Differentials include gastritis, duodenitis, esophagitis, gastroenteritis, diverticulitis, biliary colic
MDM/Problems Addressed:
83-year-old female presents to emergency department with concerns of abdominal pain it has been going on for multiple weeks. She has had no fevers or chills. No nausea or vomiting. Vital signs are stable. She is well-appearing on exam but does
have diffuse tenderness palpation, and a distended abdomen that is tympanic to percussion. She had a CAT scan done of her abdomen which was unremarkable other than some left perinephric soft tissue stranding which is similar to appearance from
previous CAT scan. Considering patient has no flank pain, no urinary symptoms, will not treat for possible Farzad at this time. Will treat for possible gastritis, will start patient on Protonix. Advised patient to follow-up with her
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 Return precautions discussed. Patient stable for discharge.
<Acacia Celeste PA-C - Last Filed: 03/23/24 18:31>
*Critical Care Note
Total Time (30-74mins, 75-104mins- exclusive of procedures): Not Applicable
ED Attending Note
<Acacia Celeste PA-C - Last Filed: 03/23/24 18:31>
-
Portions of this chart may have been created with voice recognition software.� Occasional wrong word or��sound alike� substitutions may have occurred due to the inherent limitations of voice recognition software.
<Allen Sotelo MD - Last Filed: 03/23/24 19:44>
ED Attending Note
Patient seen and examined by attending physician: Yes
I performed the substantive portion of visit, reviewed & personally made and approve the management plan that is documented in note by myself or BHARTI.: Yes
ED Attending Note:
83-year-old female presents for evaluation of abdominal pain. She told me she has had this for months. It is points to the epigastric area. Somewhat worse after eating. No radiation to the back. She does have chronic back pain however the back
pain is unchanged. She saw her pain management person today. Upon describing her symptoms they recommended ED evaluation. Denies flank pain urinary symptoms. No diarrhea mucus or bloody stool. Has bowel movements every 3 days typically
On exam patient is nontoxic in no distress. Warm and dry. Perfusing well. Lungs clear and equal. Heart regular rate and rhythm no murmur. Abdomen soft. Bowel sounds present. Mild epigastric tenderness. No rebound or guarding no mass or
hernia. Extremities are warm and dry.
Impression is ongoing epigastric comfort. Most suspicion for gastritis or ulcer. Doubt gallbladder although in the differential. Labs are all stable. CT pending. If unremarkable will treat with a PPI to follow-up
CT shows some mild perinephric inflammation around the kidney. Urinalysis is questionable. However patient's symptoms are not consistent with a Pyelo or UTI. She has had ongoing epigastric discomfort for months. Highly doubt this is a
pyelonephritis or UTI. The patient's significant medication allergies will hold on antibiotics treat with PPI and follow-up.
Discharge Plan
Departure
Patient Disposition: Home (Routine Discharge)
Date of Disposition: 03/23/24
Time of Disposition: 18:26
Patient with high blood pressure during this ER visit?: Yes
Condition: Good
Discharge Problem:
Epigastric pain
Instructions: Gastritis ED, Abdominal Pain, BLOOD PRESSURE
Prescriptions:
New
pantoprazole [Protonix] 20 mg tablet,delayed release (DR/EC)
20 mg PO DAILY 14 Days Qty: 14 0RF
No Action
cevimeline [Evoxac] 30 MG capsule
30 mg PO TID
gabapentin 300 MG capsule
300 mg PO TID
cyclosporine [Restasis] 10 DROPS dropperette
1 drp BOTH EYES BID
atorvastatin 20 MG tablet
40 mg PO HS
metoprolol succinate 25 MG tablet extended release 24 hr
25 mg PO HS
cholecalciferol (vitamin D3) 2,000 UNITS tablet
2,000 units PO QPM
glipizide 5 MG tablet
5 mg PO DAILY
potassium chloride 10 MEQ capsule, extended release
10 meq PO TID
allopurinol 100 MG tablet
100 mg PO DAILY
Domperidone
10 mg PO TID
Patient Comments:
07/26/23 [facility] buys from [facility]
isosorbide mononitrate 30 MG tablet extended release 24 hr
30 mg PO DAILY@0700
Patient Comments:
pt not sure of dosage
ezetimibe [Zetia] 10 MG tablet
10 mg PO HS
Adults Multivitamin 1 EACH tablet
1 ea PO DAILY
polyethylene glycol 3350 [Miralax] 17 gram Powder In Packet
17 g PO DAILYPRN PRN (Reason: constipation)
therapeutic multivitamin Tablet
1 tab PO DAILY
levothyroxine [Synthroid] 125 mcg Tablet
125 mcg PO DAILY
mirabegron [Myrbetriq] 50 mg Tablet Extended Release 24 Hr
50 mg PO DAILY
calcium carbonate 500 mg calcium (1,250 mg) Tablet
500 mg PO DAILY
esomeprazole magnesium [Nexium] 40 mg Capsule,Delayed Release(Dr/Ec)
40 mg PO DAILY
Linzess 290 mcg Capsule
290 mcg PO DAILY
Tylenol
1,000 mg PO TID PRN (Reason: pain)
docusate sodium 100 mg Capsule
100 mg PO BID Qty: 60 0RF
zolpidem [Ambien CR] 6.25 mg Tablet,Ext Release Multiphase
6.25 mg PO HS Qty: 2 0RF
oxycodone 10 mg Tablet
10 mg PO Q5H Qty: 5 0RF
Referrals:
Jacob Rivas DO [Family Provider] -
Activity Restrictions/Additional Instructions:
Protonix has been sent to your pharmacy to help treat potential gastritis. You can take 1 tablet once daily for 2-week trial. Please follow-up with Dr. Vidal to address your ongoing symptoms.
Please return to emergency department should you experience fevers or chills, nausea and vomiting, chest pain, shortness of breath, dark tarry stools, vomiting blood, dizziness, lightheadedness, weakness on 1 side body versus other, or any other
signs or symptoms concerning to you.
Interventions
Interventions:
*Risk Screen - Suicide Last Done: 03/23/24 12:39
*General Assessment Last Done: 03/23/24 12:39
*Neglect/Abuse Screening Last Done: 03/23/24 13:41
*ED COVID-19 Vaccine History Last Done: 03/23/24 12:39
UY-Llekpw-Kkcxgvbhem Assessment Last Done: 03/23/24 13:42
Discharge Date and Time
Print Language: MAURITANIAN
[2024-03-23 14:01] LABS: % Basophils 0.4 % (0-2); % Eosinophils 1.4 % (0-6); % Immature Granulocytes 0.7 % (0-0.5); % Lymphocytes 15.4 % (20.5-51.1); % Monocytes 7.7 % (1.7-9.3); % Neutrophils 74.4 % (42.2-75.2); Absolute Eosinophils 0.1 10^3/uL (0-0.7); Absolute Immature Granulocytes 0.1 10^3/uL (0-0.05); Absolute Lymphocytes 1.1 10^3/uL (1.2-3.4); Absolute Monocytes 0.5 10^3/uL (0.1-0.6); Absolute Neutrophils 5.2 10^3/uL (1.4-6.5); Hematocrit 41.2 % (37.0-47.0); Hemoglobin 13.4 g/dL (12.0-16.0); Mean Corp Hgb Conc. 32.5 g/dL (33.0-37.0); Mean Corpuscular Hgb 31.6 pg (27.0-31.0); Mean Corpuscular Volume 97.2 fL (81.0-99.0); Mean Platelet Volume 9.2 fL (7.4-10.4); Nucleated Red Blood Cells % 0 %; Platelet Count 233 10^3/uL (130-400); Red Blood Cell Count 4.24 10^6/uL (4.20-5.40); Red Cell Dist. Width 13.4 % (11.5-14.5)
[2024-03-23 14:13] LABS: ALT (SGPT) 13 U/L (0-35); AST (SGOT) 21 U/L (14-36); Albumin 4.6 g/dl (3.5-5.0); Alkaline Phosphatase 71 U/L (38-126); Blood Urea Nitrogen 8 mg/dl (7-17); Calcium 9.5 mg/dl (8.4-10.2); Carbon Dioxide 25 mmol/L (22-30); Chloride 104 mmol/L (98-107); Glucose 109 mg/dl (70-99); Lipase 103 U/L (23-300); Potassium 4.4 mmol/L (3.5-5.1); Sodium 141 mmol/L (135-145); Total Bilirubin 0.5 mg/dl (0.2-1.3); Total Protein 6.6 g/dl (6.3-8.2); eGFR > 60.00
[2024-03-23 14:29] LABS: Urine Albumin Negative (Neg - Trace); Urine Bilirubin Negative (Negative); Urine Character Clear (Clear); Urine Color Yellow; Urine Glucose Negative (Negative); Urine Ketone Negative (Negative); Urine Leukocyte 1+ (Negative); Urine Nitrite Negative (Negative); Urine Occult Blood Negative (Negative); Urine Urobilinogen Negative (Neg - 1+)
[2024-03-23] MEDS: OMNIPAQUE 50 ML PO (14:43)
[2024-03-23 14:49] LABS: Urine White Cell 26-30 /HPF (0-5)
[2024-03-23 14:54] LABS: Urine Bacteria Few (Negative)
== END 2024-03-23 20:53 | disposition home or self-care (01) ==
LOC: EMR 12:32
PROVIDERS: Physician Assistant; EMERGENCY PHYSICIAN Emergency Medicine; FAMILY PHYSICIAN Family Medicine
DX: R10.13 Epigastric pain (principal); I25.10 Atherosclerotic heart disease of native coronary artery without angina pectoris; E11.36 Type 2 diabetes mellitus with diabetic cataract; E78.00 Pure hypercholesterolemia, unspecified; E11.9 Type 2 diabetes mellitus without complications; K21.9 Gastro-esophageal reflux disease without esophagitis; G89.29 Other chronic pain; M54.9 Dorsalgia, unspecified; Z85.828 Personal history of other malignant neoplasm of skin; Z86.718 Personal history of other venous thrombosis and embolism; Z86.73 Personal history of transient ischemic attack (TIA), and cerebral infarction without residual deficits; Z95.5 Presence of coronary angioplasty implant and graft; Z98.1 Arthrodesis status; Z90.49 Acquired absence of other specified parts of digestive tract
CPT/HCPCS: 99284; 74176; 80053; 81003; 81015; 83690; 85025; 87086; 93005

== ENCOUNTER 2024-05-25 11:18 | Emergency (ER) | payer MEDICARE, OTHER, SELFPAY ==
[2024-05-25 11:43] VITALS: BP 117/76
[2024-05-25 12:57] LABS: % Basophils 0.7 % (0-2); % Eosinophils 1.8 % (0-6); % Immature Granulocytes 0.5 % (0-0.5); % Monocytes 7.8 % (1.7-9.3); % Neutrophils 74.2 % (42.2-75.2); Absolute Basophils 0.1 10^3/uL (0-0.2); Absolute Eosinophils 0.1 10^3/uL (0-0.7); Absolute Lymphocytes 1.1 10^3/uL (1.2-3.4); Absolute Monocytes 0.6 10^3/uL (0.1-0.6); Absolute Neutrophils 5.4 10^3/uL (1.4-6.5); Hematocrit 38.4 % (37.0-47.0); Hemoglobin 12.9 g/dL (12.0-16.0); Mean Corp Hgb Conc. 33.6 g/dL (33.0-37.0); Mean Corpuscular Hgb 31.4 pg (27.0-31.0); Mean Corpuscular Volume 93.4 fL (81.0-99.0); Mean Platelet Volume 9.7 fL (7.4-10.4); Nucleated Red Blood Cells % 0 %; Platelet Count 196 10^3/uL (130-400); Red Blood Cell Count 4.11 10^6/uL (4.20-5.40); Red Cell Dist. Width 13.9 % (11.5-14.5); White Blood Cell Count 7.3 10^3/uL (4.8-10.8)
[2024-05-25 13:25] LABS: ALT (SGPT) 19 U/L (0-35); AST (SGOT) 22 U/L (14-36); Albumin 4.1 g/dl (3.5-5.0); Alkaline Phosphatase 78 U/L (38-126); Blood Urea Nitrogen 8 mg/dl (7-17); Calcium 9.6 mg/dl (8.4-10.2); Carbon Dioxide 22 mmol/L (22-30); Chloride 104 mmol/L (98-107); Glucose 155 mg/dl (70-99); Potassium 3.9 mmol/L (3.5-5.1); Sodium 136 mmol/L (135-145); Total Bilirubin 0.6 mg/dl (0.2-1.3); Total Protein 6.2 g/dl (6.3-8.2); eGFR > 60.00
[2024-05-25 13:27] LABS: Troponin I < 0.012 ng/ml
[2024-05-25 14:37] VITALS: BP 118/78
[2024-05-25 16:10] VITALS: BP 125/79
[2024-05-25 19:11] VITALS: BMI 24.5
[2024-05-25 19:36] VITALS: BP 137/92
--- NOTE | 2024-05-25 20:09 | ED.GENMED ---
History of Present Illness
<MARISELA Kent - Last Filed: 05/25/24 23:50>
General
Chief Complaint: Headache
Source: patient
Exam Limitations: none
Time Seen by Provider: 05/25/24 19:30
History of Present Illness
History of Present Illness:
This is a 83 year old female that comes in with c/o abd pain. States that she is nauseated and lightheaded. State that her abd hurts on both sided. States that it is on and off for the past few weeks. States that eating makes the pain worse and she
is not eating much as her just . Denies any coughing. States that she is SOB slightly, she had diarrhea yesterday, and she always has a headache. States that she feels lightheaded. Denies any fever, chills, chest pain, vomiting,
urinary burning.
Past History
<MARISELA Kent - Last Filed: 05/25/24 23:50>
Past History
ED Past Medical History: CAD, Cancer (Skin CA), Fibromyalgia, GERD, Hypercholesterolemia, NIDDM, Other ( Sjogren's syndrome, back pain, Numbness arms and legs. Compression fractures, PE/DVT, IBS, Gastroparesis, Anemia, Stroke Left eye, IBS,
Partially blind, Raynaud's) and Other (Urinary retention, giant cell arteritis)
ED Past Surgical History: Appendectomy, Cardiac (Coronary Stents), (X 2), Orthopedic (Spinal fusion X 2, Right rotator cuff, ) and Other (Thyroidectomy, Cataracts, Left lumpectomy)
Social History
Tobacco: Non-smoker
Alcohol: None
Drug: None
Personal:
Living: alone
Employment: Retired
Family History
Family History: Other (Noncontributory)
Review of Systems
<MARISELA Kent - Last Filed: 05/25/24 23:50>
Review of Systems
All Other Systems: ROS reviewed and negative except as documented in HPI and ROS
Constitutional: Reports no symptoms; Denies fever or chills
EENT: Reports no symptoms
Respiratory: Reports trouble breathing (Slight); Denies cough
Cardiac: Denies chest pain
ABD/GI: Reports abdominal pain, nausea and diarrhea (Yesterday); Denies vomiting
: Reports no symptoms; Denies dysuria, frequency or urgency
Musculoskeletal: Reports no symptoms
Skin: Reports no symptoms
Neurological: Reports headache (Always) and other (Lightheaded); Denies dizzy
Psychiatric: Reports no symptoms
Phy Exam
<MARISELA Kent - Last Filed: 05/25/24 23:50>
General Physical Exam
General Presentation: no apparent distress
General age: appears stated age
General Skin: warm and dry
General Habitus: elderly
General Mental: alert
General Hydration: appears well hydrated
ENT Exam
ENT Exam: TM's normal, pharynx normal and neck supple
Eye Exam
Eye Exam: EOMI
Cardiovascular Exam
Cardiovascular Exam: regular rate/rhythm, no edema and normal peripheral pulses
Pulmonary Exam
Pulmonary Exam: lungs clear, no respiratory distress, no rales, chest non tender, no crackles, no rhonchi, no wheezing and no cough
Gastrointestinal Exam
Gastrointestinal Exam: normal bowel sounds, soft, no organomegaly, no pulsatile mass, non distended and tender (Generalized tenderness with palpation)
Musculoskeletal Exam
Musculoskeletal Exam: full ROM and no edema
Skin Exam
Skin Exam: normal color, warm/dry, no rash and no petechia
Psychiatric Exam
Psychiatric Exam: normal mood/affect
Course
<MARISELA Kent - Last Filed: 05/25/24 23:50>
Orders/Labs/Results
Orders:
Orders
05/25/24 11:20
ECG [Electrocardiogram (*1)] Urgent
Reason for Study: Vertigo / Dizzy
EKG- Treatment ONCE
05/25/24 12:12
Complete Blood Count/With Diff Urgent
Comprehensive Metabolic Panel Urgent
Troponin I Urgent
05/25/24 20:08
Diphenhydramine [Benadryl] 50 mg IV NOW STA
Hydrocortisone Sod Succinate [Solu-Cortef] 200 mg IV NOW STA
05/25/24 20:09
0.9% Sodium Chloride 500 ml [Nss] 500 ml IV BOLUS
05/25/24 20:19
CT Abd/pelvis W Iv Cont Urgent
Comment:
Reason For Exam: generalized abd pain
05/25/24 22:25
Urinalysis Reflex To Culture Urgent
Date Specimen was Collected: 05/25/24
Time Specimen was Collected: 22:24
05/25/24 23:13
Oxycodone [Roxicodone] 10 mg PO NOW STA
Abnormal Lab Results
05/25/24
12:12
RBC 4.11 L 10^6/uL
(4.20-5.40)
MCH 31.4 H pg
(27.0-31.0)
Absolute Lymphs (auto) 1.1 L 10^3/uL
(1.2-3.4)
Lymphocytes % 15.0 L %
(20.5-51.1)
Glucose 155 H mg/dl
(70-99)
Total Protein 6.2 L g/dl
(6.3-8.2)
05/25/24 12:12
05/25/24 12:12
Hyperglycemia, (Patient is a Diabetic), Total protein slighly low. Troponin <0.012, Urine negative for infection.
Vital Signs
Initial and Last Documented VS:
Initial Vital Signs
Temp Pulse Resp BP Pulse Ox
98.7 F 87 18 117/76 96
05/25/24 11:43 05/25/24 11:43 05/25/24 11:43 05/25/24 11:43 05/25/24 11:43
Last Documented Vital Signs
Temp Pulse Resp BP Pulse Ox
98.6 F 106 18 137/92 98
05/25/24 16:10 05/25/24 19:36 05/25/24 21:47 05/25/24 19:36 05/25/24 19:36
<Peter Dong, DO - Last Filed: 05/25/24 21:42>
Orders/Labs/Results
Orders:
Orders
05/25/24 11:20
ECG [Electrocardiogram (*1)] Urgent
Reason for Study: Vertigo / Dizzy
EKG- Treatment ONCE
05/25/24 12:12
Complete Blood Count/With Diff Urgent
Comprehensive Metabolic Panel Urgent
Troponin I Urgent
05/25/24 20:08
Diphenhydramine [Benadryl] 50 mg IV NOW STA
Hydrocortisone Sod Succinate [Solu-Cortef] 200 mg IV NOW STA
05/25/24 20:09
0.9% Sodium Chloride 500 ml [Nss] 500 ml IV BOLUS
05/25/24 20:19
CT Abd/pelvis W Iv Cont Urgent
Comment:
Reason For Exam: generalized abd pain
05/25/24 22:25
Urinalysis Reflex To Culture Urgent
Date Specimen was Collected: 05/25/24
Time Specimen was Collected: 22:24
05/25/24 23:13
Oxycodone [Roxicodone] 10 mg PO NOW STA
Abnormal Lab Results
05/25/24
12:12
RBC 4.11 L 10^6/uL
(4.20-5.40)
MCH 31.4 H pg
(27.0-31.0)
Absolute Lymphs (auto) 1.1 L 10^3/uL
(1.2-3.4)
Lymphocytes % 15.0 L %
(20.5-51.1)
Glucose 155 H mg/dl
(70-99)
Total Protein 6.2 L g/dl
(6.3-8.2)
05/25/24 12:12
05/25/24 12:12
Vital Signs
Initial and Last Documented VS:
Initial Vital Signs
Temp Pulse Resp BP Pulse Ox
98.7 F 87 18 117/76 96
05/25/24 11:43 05/25/24 11:43 05/25/24 11:43 05/25/24 11:43 05/25/24 11:43
Last Documented Vital Signs
Temp Pulse Resp BP Pulse Ox
98.6 F 106 18 137/92 98
05/25/24 16:10 05/25/24 19:36 05/25/24 21:47 05/25/24 19:36 05/25/24 19:36
<MARISELA Kent - Last Filed: 05/25/24 23:50>
MDM/Problems Addressed
Differential Diagnosis Includes:
Enteritis, Aortic dissection,
MDM/Problems Addressed:
This is a 83 year old female that comes in with c/o abd pain. States that this has been on and off for the past 10 days.
Will check labs and give CT scan. Will give IV fluids.
Back into see patient. Explained that her CT shows some constipation. Otherwise nothing acute. Patient blood work was normal and her urine is negative for infection. Patient uses FiberCon. Encouraged patient to increase her water intake and use her
FiberCon. Return with any concerns.
Chronic conditions affecting care:
Gastroparesis
Acute Exacerbation and/or Progression of Chronic Illness:
NA
<MARISELA Kent - Last Filed: 05/25/24 23:50>
*Radiology
Radiology exam reviewed: radiology read reviewed (CT-Status post appendectomy. No evidence for bowel obstruction or free intraperitoneal air. Mild distention of the rectum with stool, transvers diamension of 5.0cm, with no findings to suggest
stercoral colitis. No evidence of diverticulitis. Compression deformities as described, stable from) and all reviewed NAD by ED Provider (CT cont- previous examination. Streak artifact from posterior spinal fusion hardware. )
*Pulse Oximetry
Patient hypoxic: no
*EKG
Interpreted by ED Provider?: Yes
Heart Rate: 77
Rate: normal
Rhythm: sinus
[place]: left axis deviation
Interval: normal interval
QRS Pattern: right bundle branch block
Ischemia: no ischemia
*Product Mgmt Dev Manager Interpretation
Rate: Product Mgmt Dev Manager- N/A
*Critical Care Note
Total Time (30-74mins, 75-104mins- exclusive of procedures): Not Applicable
ED Attending Note
<MARISELA Kent - Last Filed: 05/25/24 23:50>
-
Portions of this chart may have been created with voice recognition software.� Occasional wrong word or��sound alike� substitutions may have occurred due to the inherent limitations of voice recognition software.
<Peter Dong DO - Last Filed: 05/25/24 21:42>
ED Attending Note
Patient seen and examined by attending physician: Yes
I performed the substantive portion of visit, reviewed & personally made and approve the management plan that is documented in note by myself or BHARTI.: Yes
Discharge Plan
Departure
Patient Disposition: Home (Routine Discharge)
Date of Disposition: 05/25/24
Time of Disposition: 23:46
Patient with high blood pressure during this ER visit?: Yes
Condition: Good
Covid-19: Not Applicable
Discharge Problem:
Constipation
Instructions: Constipation, Adult ED, BLOOD PRESSURE
Prescriptions:
No Action
cevimeline [Evoxac] 30 MG capsule
30 mg PO TID
gabapentin 300 MG capsule
300 mg PO TID
cyclosporine [Restasis] 10 DROPS dropperette
1 drp BOTH EYES BID
atorvastatin 20 MG tablet
40 mg PO HS
metoprolol succinate 25 MG tablet extended release 24 hr
25 mg PO HS
cholecalciferol (vitamin D3) 2,000 UNITS tablet
2,000 units PO QPM
glipizide 5 MG tablet
5 mg PO DAILY
potassium chloride 10 MEQ capsule, extended release
10 meq PO TID
allopurinol 100 MG tablet
100 mg PO DAILY
Domperidone
10 mg PO TID
Patient Comments:
07/26/23 patient buys from [facility]
isosorbide mononitrate 30 MG tablet extended release 24 hr
30 mg PO DAILY@0700
Patient Comments:
pt not sure of dosage
ezetimibe [Zetia] 10 MG tablet
10 mg PO HS
Adults Multivitamin 1 EACH tablet
1 ea PO DAILY
polyethylene glycol 3350 [Miralax] 17 gram Powder In Packet
17 g PO DAILYPRN PRN (Reason: constipation)
therapeutic multivitamin Tablet
1 tab PO DAILY
levothyroxine [Synthroid] 125 mcg Tablet
125 mcg PO DAILY
mirabegron [Myrbetriq] 50 mg Tablet Extended Release 24 Hr
50 mg PO DAILY
calcium carbonate 500 mg calcium (1,250 mg) Tablet
500 mg PO DAILY
esomeprazole magnesium [Nexium] 40 mg Capsule,Delayed Release(Dr/Ec)
40 mg PO DAILY
Linzess 290 mcg Capsule
290 mcg PO DAILY
Tylenol
1,000 mg PO TID PRN (Reason: pain)
docusate sodium 100 mg Capsule
100 mg PO BID Qty: 60 0RF
zolpidem [Ambien CR] 6.25 mg Tablet,Ext Release Multiphase
6.25 mg PO HS Qty: 2 0RF
oxycodone 10 mg Tablet
10 mg PO Q5H Qty: 5 0RF
pantoprazole [Protonix] 20 mg tablet,delayed release (DR/EC)
20 mg PO DAILY 14 Days Qty: 14 0RF
Referrals:
Jacob Rivas DO [Family Provider] - Call in 1-3 days for appt
Activity Restrictions/Additional Instructions:
As discussed, your blood work shows that your blood sugar is elevated. Please increase your water intake to 8-8oz glasses daily. Your CT shows constipation but no other acute process. Please use your FiberCon to help with the constipation. Follow up
with the family doctor for recheck. IF YOU HAVE INCREASED OR CHANGING ABD PAIN, OR YOU HAVE ANY OTHER CONCERNS PLEASE RETURN TO THE EMERGENCY ROOM.
Interventions
Interventions:
*Risk Screen - Suicide Last Done: 05/25/24 11:43
*General Assessment Last Done: 05/25/24 11:43
*Neglect/Abuse Screening Last Done: 05/25/24 11:43
*ED COVID-19 Vaccine History Last Done: 05/25/24 19:15
ED- Cardiac Assessment Last Done: 05/25/24 19:11
ED- Neurological Assessment Last Done: 05/25/24 19:11
Discharge Date and Time
Print Language: SETSWANA
[2024-05-25] MEDS: BENADRYL 50 MG IV (20:46)
[2024-05-25] MEDS: NSS 500 IV (20:47)
[2024-05-25] MEDS: SOLU-CORTEF 200 MG IV (20:47)
[2024-05-25 22:34] LABS: Urine Albumin Negative (Neg - Trace); Urine Bilirubin Negative (Negative); Urine Character Clear (Clear); Urine Color Straw; Urine Glucose Negative (Negative); Urine Ketone Negative (Negative); Urine Leukocyte Negative (Negative); Urine Nitrite Negative (Negative); Urine Occult Blood Negative (Negative); Urine Specific Gravity 1.005 (<1.030); Urine Urobilinogen Negative (Neg - 1+)
[2024-05-25] MEDS: ROXICODONE 10 MG PO (23:51)
[2024-05-26] MEDS: TYLENOL 650 MG PO (03:51)
== END 2024-05-26 09:08 | disposition home or self-care (01) ==
LOC: EMR 11:18
PROVIDERS: Emergency Medicine; EMERGENCY PHYSICIAN Emergency Medicine; FAMILY PHYSICIAN Family Medicine
DX: K59.00 Constipation, unspecified (principal); R03.0 Elevated blood-pressure reading, without diagnosis of hypertension
CPT/HCPCS: 99285; 96374; 96375; 96361 ×2; 74177; 80053; 81003; 84484; 85025; 93005; Q9967

== ENCOUNTER → 2024-10-12 11:33 | Outpatient (REF) | payer MEDICARE, OTHER, SELFPAY ==
[2024-10-12 13:21] LABS: Microalbumin, Random Urine < 0.6 mg/dl (0.6-1.7)
== END ==
LOC: REG 11:33
PROVIDERS: ATTENDING PHYSICIAN Family Medicine; REFERRING PHYSICIAN Specialist
DX: N39.0 Urinary tract infection, site not specified (principal)
CPT/HCPCS: 82043; 82570

== ENCOUNTER → 2024-11-30 11:08 | Outpatient (REF) | payer MEDICARE, OTHER, SELFPAY | LOC: HWRAD 11:08 | PROVIDERS: ATTENDING PHYSICIAN Ophthalmology; FAMILY PHYSICIAN Family Medicine | DX: H53.10 Unspecified subjective visual disturbances (principal) | CPT/HCPCS: 70450 ==